=== PATIENT | female | born 1930 | race Caucasian/White ===

== ENCOUNTER 2016-09-01 21:15 | Inpatient (IN) | payer MEDICARE, BC ==
[2016-09-01] MEDS ORDERED: Sodium Chloride 0.9% 10 ML Syringe FLUSH PRN (21:30)
[2016-09-01] MEDS ORDERED: Sodium Chloride 0.9% 2.5 ML Syringe FLUSH PRN (21:30)
--- NOTE | 2016-09-01 21:47 | EDM.PDOC ---
ED HISTORY OF PRESENT ILLNESS - General Chief Complaint: Respiratory Problem Stated Complaint: COUGH Time Seen by Provider: 09/01/16 21:24 - History of Present Illness INITIAL COMMENTS - FREE TEXT/NARRATIVE: HISTORY AND PHYSICAL: History of present illness: Patient is an 85-year-old white female with past medical history significant pulmonary fibrosis who presents with concern of cough shortness of breath she has chronic dyspnea and is at the assisted she uses home O2 at 3 L per nasal cannula she does have a scheduled appointment with her doctor tomorrow but felt she couldn't wait no fever chills nausea vomiting chest pain abdominal pain or any other concern. Review of systems: As per history of present illness and below otherwise all systems reviewed and negative. Past medical history: As per history of present illness and as reviewed below otherwise noncontributory. Surgical history: As per history of present illness and as reviewed below otherwise noncontributory. Social history: No reported history of drug or alcohol abuse. Family history: As per history of present illness and as reviewed below otherwise noncontributory. Physical exam: HEENT: Atraumatic, normocephalic, pupils reactive, negative for conjunctival pallor or scleral icterus, mucous membranes moist, throat clear, neck supple, nontender, trachea midline. Lungs: Coarse bilaterally slightly diminished bibasilar crackles noted, breath sounds equal bilaterally, chest nontender. Heart: S1S2, regular, negative for clicks, rubs, or JVD. Abdomen: Soft, nondistended, nontender. Negative for masses or hepatosplenomegaly. Negative for costovertebral tenderness. Pelvis: Stable nontender. Genitourinary: Deferred. Rectal: Deferred. Extremities: Atraumatic, negative for cords or calf pain. Neurovascular unremarkable. Neuro: Awake, alert, oriented. Cranial nerves II through XII unremarkable. Cerebellum unremarkable. Motor and sensory unremarkable throughout. Exam nonfocal. Diagnostics: CBC CMP EKG chest x-ray troponin influenza screen Therapeutics: IV O2 monitor Impression: #1 pulmonary fibrosis #2 dyspnea Definitive disposition and diagnosis as appropriate pending reevaluation and review of above. - Related Data Allergies/ADRs: Allergies Allergy/AdvReac Type Severity Reaction Status Date / Time amoxicillin Allergy Cannot Verified 01/08/16 19:51 Remember cephalexin monohydrate Allergy Anaphylactic Verified 01/08/16 19:51 [From Keflex] Shock Penicillins Allergy Cannot Verified 01/08/16 19:51 Remember Home Meds: Home Meds Ferrous Sulfate 325 mg PO BID 10/19/14 [History] Metoprolol Tartrate 25 mg PO BID 10/19/14 [History] atorvaSTATin [Lipitor] 10 mg PO BEDTIME 10/19/14 [History] Clopidogrel [Plavix] 75 mg PO DAILY 02/25/15 [History] PARoxetine [Paxil] 20 mg PO DAILY 02/25/15 [History] Furosemide [Lasix] 20 mg PO DAILY #14 tablet 05/06/15 [Rx] Acetaminophen [Tylenol] 650 mg PO Q4HR PRN 05/25/15 [History] Calcium Citrate/Vitamin D3 [Calcium Citrate + D] 1 tab PO BIDMEALS 05/25/15 [ History] Multivitamin [Multivitamins] 1 cap PO DAILY 05/25/15 [History] Aspirin 81 mg PO DAILY 01/08/16 [History] Budesonide [Pulmicort Flexhaler] 2 puff INH DAILY 01/08/16 [History] Diazepam [Valium] 2 mg PO BID 01/08/16 [History] Levalbuterol HCl [Xopenex] 1.25 mg NEB Q4H PRN 01/08/16 [History] Mirtazapine [Remeron] 30 mg PO BEDTIME 01/08/16 [History] Polymyxin B Sulf/Trimethoprim [Polytrim Eye Drops] 1 drop OP DAILY 01/08/16 [ History] Psyllium Husk/Laxative No.1 [Colox] 100 mg PO DAILY 01/08/16 [History] L Acidophil/B Lactis/B Longum [Florajen3] 460 mg PO DAILY 01/09/16 [History] Cyclobenzaprine [Flexeril] 5 mg PO BEDTIME #10 tablet 01/16/16 [Rx] Cyclobenzaprine [Flexeril] 5 mg PO BID PRN #10 tablet 01/16/16 [Rx] Loperamide HCl [Imodium A-D] 2 mg PO ASDIRECTED PRN 05/08/16 [History] Mineral Oil/Petrolatum,White [Refresh P.M.] 3.5 gm OP BEDTIME 05/09/16 [History] Melatonin 5 mg PO BEDTIME 09/02/16 [History] Past Medical History HEENT History: Reports: Impaired vision Cardiovascular History: Reports: Arrhythmia, CAD, Heart Failure, Hypertension, MS, Prior cardiac arrest, Other (see below) Other Cardiovascular History: hypoxemia, tachycardia unspecified, STEMI Respiratory History: Reports: COPD, Pneumonia, recurrent, Pulmonary fibrosis, SOB, Other (see below) Other Respiratory History: interstitial pulmonary diseas, 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 Gastrointestinal History: Reports: None Other Gastrointestinal History: hernia Genitourinary History: Reports: Chronic renal insuffiency, UTI, recurrent, Other (see below) Other Genitourinary History: with history of bladder cancer-malignant neoplasm, stage 3 chronic kidney disease INPATIENT AUDITOR History: Reports: None Musculoskeletal History: Reports: Back pain, chronic, Osteoarthritis, Other ( see below) Other Musculoskeletal History: generalized muscle weakness, rheumatoid arthritis , dorsalgia, difficluty walking and lack of coordination Neurological History: Reports: TIA, Other (see below) Other Neuro History: altered mental staus, 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 Psychiatric History: Reports: Anxiety, Depression Endocrine/Metabolic History: Reports: None, Other (see below) Other Endocrine/Metabolic History: hyperlipidemia, hyperkalemia Hematologic History: Reports: None Immunologic History: Reports: None Oncologic (Cancer) History: Reports: Other (see below) Other Oncologic History: history of malignant neoplasm of bladder Dermatologic History: Reports: None - Infectious Disease History Infectious Disease History: Reports: Chicken pox, Measles, Mumps - Past Surgical History Head Surgeries/Procedures: Reports: None Cardiovascular Surgical History: Reports: Other (see below) Other Cardiovascular Surgeries/Procedures: coronary angioplastyimplant and graft GI Surgical History: Reports: Other (see below) Other GI Surgeries/Procedures: bowle resection Female Surgical History: Reports: Ureteral stent, Other (see below) Other Female Surgeries/Procedures: urostomy Endocrine Surgical History: Reports: None Neurological Surgical History: Reports: None Social & Family History - Family History Family Medical History: Noncontributory HEENT: Reports: Hearing impairment Cardiac: Reports: Heart failure, High cholesterol, Hypertension OBGYN: Reports: Musculoskeletal: Reports: Arthritis, Osteoarthritis, Osteoporosis - Tobacco Use Smoking Status *Q: Never Smoker Second Hand Smoke Exposure: No - Caffeine Use Caffeine Use: Reports: Coffee - Alcohol Use Days Per Week of Alcohol Use: 0 - Recreational Drug Use Recreational Drug Use: No Drug Use in Last 12 Months: No ED ROS GENERAL - Review of Systems Review Of Systems: ROS reveals no pertinent complaints other than HPI. ED EXAM, GENERAL - Physical Exam Exam: See Below (See dictation) Course - Vital Signs Last Recorded V/S: Last Vital Signs Temp 37.3 C 09/01/16 23:00 Pulse 102 H 09/01/16 23:00 Resp 24 H 09/01/16 23:00 BP 131/91 H 09/01/16 23:00 Pulse Ox 96 09/01/16 23:00 - Orders/Labs/Meds Orders: Active Orders 24 hr Category Date Time Status EKG Documentation Completion [RC] STAT Care 09/01/16 21:30 Active Chest 2V [CR] Stat Exams 09/01/16 21:31 Taken CBC WITH AUTO DIFF [HEME] Stat Lab 09/01/16 21:30 Ordered Levofloxacin/Dextrose 5%-Water [Levaquin in D5W 750 MG/ Med 09/02/16 00:04 Active 150 ML] 750 mg Premix Bag 1 bag IV ONETIME Sodium Chloride 0.9% [Saline Flush] Med 09/01/16 21:30 Active 10 ml FLUSH ASDIRECTED PRN Sodium Chloride 0.9% [Saline Flush] Med 09/01/16 21:30 Active 2.5 ml FLUSH ASDIRECTED PRN Saline Lock Insert [OM.PC] Stat Oth 09/01/16 21:31 Ordered Medication Orders Levofloxacin/Dextrose 750 mg/ (Premix) 150 mls @ 100 mls/hr IV ONETIME ONE Stop: 09/02/16 01:33 Sodium Chloride (Saline Flush) 10 ml FLUSH ASDIRECTED PRN PRN Reason: Keep Vein Open Sodium Chloride (Saline Flush) 2.5 ml FLUSH ASDIRECTED PRN PRN Reason: Keep Vein Open Labs: Laboratory Tests 09/01/16 09/01/16 09/01/16 Range/Units 22:00 22:00 22:00 Sodium 137 (136-146) mmol/L Potassium 3.9 (3.5-5.1) mmol/L Chloride 102 (98-110) mmol/L Carbon Dioxide 23 (21-31) mmol/L BUN 42 H (6.0-23.0) mg/dL Creatinine 1.5 (0.6-1.5) mg/dL Est Cr Clr Drug Dosing 21.86 mL/min Estimated GFR (MDRD) 32.8 ml/min Glucose 109 (60-110) mg/dL Calcium 9.1 (8.8-10.8) mg/dL Total Bilirubin 0.3 (0.1-1.5) mg/dL AST 20 (5-40) IU/L ALT 11 (8-54) IU/L Alkaline Phosphatase 90 (40-150) Troponin I < 0.10 (0.0-0.29) NG/ML B-Natriuretic Peptide 838 H (<100) PG/ML Total Protein 7.7 (6.0-8.0) g/dL Albumin 3.5 (3.4-4.8) g/dL Globulin 4.2 H (2.0-3.5) g/dL Albumin/Globulin Ratio 0.8 L (1.3-2.8) Meds: Medications Generic Name Dose Route Start Last Admin Trade Name Maggy PRN Reason Stop Dose Admin Levofloxacin/Dextrose 750 mg/ 150 mls @ 100 mls/hr 09/02/16 00:04 Premix IV 09/02/16 01:33 ONETIME ONE Sodium Chloride 10 ml 09/01/16 21:30 Saline Flush FLUSH ASDIRECTED PRN Keep Vein Open Sodium Chloride 2.5 ml 09/01/16 21:30 Saline Flush FLUSH ASDIRECTED PRN Keep Vein Open Discontinued Medications Generic Name Dose Route Start Last Admin Trade Name Maggy PRN Reason Stop Dose Admin Albuterol/Ipratropium Confirm 09/01/16 22:48 Duoneb 3.0-0.5 Mg/3 Ml Administered 09/01/16 22:49 Dose 3 ml .ROUTE .STK-MED ONE Methylprednisolone Sodium Succinate 125 mg 09/02/16 00:05 Solu-Medrol IVPUSH 09/02/16 00:06 ONETIME ONE Departure - Departure Time of Disposition: 00:09 Disposition: Admitted As Inpatient 64 Condition: good Clinical Impression: Pulmonary fibrosis, Dyspnea, Pneumonia Forms: ED Department Discharge - My Orders Last 24 Hours: My Active Orders 09/01/16 21:30 EKG Documentation Completion [RC] STAT CBC WITH AUTO DIFF [HEME] Stat Sodium Chloride 0.9% [Saline Flush] 10 ml FLUSH ASDIRECTED PRN Sodium Chloride 0.9% [Saline Flush] 2.5 ml FLUSH ASDIRECTED PRN 09/01/16 21:31 Chest 2V [CR] Stat Saline Lock Insert [OM.PC] Stat 09/02/16 00:04 Levofloxacin/Dextrose 5%-Water [Levaquin in D5W 750 MG/150 ML] 750 mg Premix Bag 1 bag IV ONETIME - Assessment/Plan Last 24 Hours: My Active Orders 09/01/16 21:30 EKG Documentation Completion [RC] STAT CBC WITH AUTO DIFF [HEME] Stat Sodium Chloride 0.9% [Saline Flush] 10 ml FLUSH ASDIRECTED PRN Sodium Chloride 0.9% [Saline Flush] 2.5 ml FLUSH ASDIRECTED PRN 09/01/16 21:31 Chest 2V [CR] Stat Saline Lock Insert [OM.PC] Stat 09/02/16 00:04 Levofloxacin/Dextrose 5%-Water [Levaquin in D5W 750 MG/150 ML] 750 mg Premix Bag 1 bag IV ONETIME
[2016-09-01] MEDS ORDERED: Albuterol/Ipratropium 3.0-0.5 MG/3 ML Neb Soln ONE (22:48)
[2016-09-02] MEDS ORDERED: Levofloxacin/Dextrose 5%-Water 750 MG in Premix Bag 1 BAG IV ONE (00:04)
[2016-09-02] MEDS ORDERED: methylPREDNISolone Sodium Succinate 125 MG/2 ML SDV IVPUSH ONE (00:05)
[2016-09-02] MEDS ORDERED: Acetaminophen 325 MG Tab PO ONE (00:30)
[2016-09-02] MEDS ORDERED: Azithromycin 500 MG in Sodium Chloride 0.9% 250 ML IV SCH (02:00)
[2016-09-02] MEDS: Albuterol/Ipratropium 3.0-0.5 MG/3 ML Neb Soln NEB SCH ×6 (02:09→21:37)
[2016-09-02] MEDS ORDERED: Meropenem 500 MG in Sodium Chloride 0.9% 100 ML IV SCH (03:00)
[2016-09-02] MEDS ORDERED: Meropenem 1 GM in Sodium Chloride 0.9% 100 ML IV SCH (03:00)
--- NOTE | 2016-09-02 08:30 | CR ---
EXAMINATION: Two-view chest (PA and Lateral views). HISTORY: Shortness of breath. FINDINGS: There is a stable widened appearance of the mediastinum with rightward deviation of the trachea. Not able chronic interstitial prominence within the right perihilar distribution in the bases bilaterall y. No definite pleural effusion. No increased or focal infiltrate. Osseous structures appear osteopenic. IMPRESSION: 1. Increased interstitial prominence likely representing interstitial lung disease. Grossly unchange d.
[2016-09-02] MEDS: methylPREDNISolone Sodium Succinate 125 MG/2 ML SDV IVPUSH SCH ×2 (09:33→15:25)
--- NOTE | 2016-09-02 10:55 | PCM.HP ---
H&P History of Present Illness - General Date of Service: 09/02/16 Admit Problem/Dx: Dyspnea Source of Information: Patient History Limitations: Reports: No limitations - History of Present Illness Initial Comments - Free Text/Narative: 85 yo female [facility] [place] resident admitted 09/01/16 for dyspnea with pmh of significant pulmonary fibrosis (home O2 3L), COPD, CAD, [place] with stents on plavix , CKD, hypertension and hyperlipidemia Patient initially presented to ED from [place] secondary to cough and worsening shortness of breath. She has chronic dyspnea and is on home O2 at 3 L per nasal cannula. Patient did have a scheduled appointment with her PCP on but felt she couldn't wait. Patient reported no sputum prodcution with cough , as well as no fever, chills, nausea, vomiting, chest pain, palpitations, or abdominal pain. She did receive the flu vaccination this year. In ED, CBC, CMP, and Troponin were unremarkable. BNP was elevated to 838 however on previous admissions BNP near 700-800. Influenza A and B were negative. CXR showed increased interstitial prminence likely representing interstitial lung diseas but grossly unchanged from previous studies. She was given tylenol, Solumedrol in the ED. Patient is allergic to Levaquin as well as amoxiciilin, azithromycing and cephalexin. Patient was admitted for dyspnea most likely secondary to COPD exacerbation and started on emperic antibiotics for HCAP from [facility]. - Related Data Allergies/Adverse Reactions: Allergies Allergy/AdvReac Type Severity Reaction Status Date / Time amoxicillin Allergy Cannot Verified 01/08/16 19:51 Remember azithromycin [From Zithromax] Allergy Cannot Verified 09/02/16 02:36 Remember cephalexin monohydrate Allergy Anaphylactic Verified 01/08/16 19:51 [From Keflex] Shock codeine Allergy Cannot Verified 09/02/16 02:33 Remember gentamicin Allergy Cannot Verified 09/02/16 02:35 Remember Iodine and Iodide Containing Allergy Cannot Verified 09/02/16 02:41 Produc Remember levofloxacin [From Levaquin] Allergy Redness Verified 09/02/16 02:45 Penicillins Allergy Cannot Verified 01/08/16 19:51 Remember Home Medications: Home Meds Ferrous Sulfate 325 mg PO BID 10/19/14 [History] Metoprolol Tartrate 25 mg PO BID 10/19/14 [History] atorvaSTATin [Lipitor] 10 mg PO BEDTIME 10/19/14 [History] Clopidogrel [Plavix] 75 mg PO DAILY 02/25/15 [History] PARoxetine [Paxil] 20 mg PO DAILY 02/25/15 [History] Acetaminophen [Tylenol] 650 mg PO Q4HR PRN MDD 3000 mg 05/25/15 [History] Calcium Citrate/Vitamin D3 [Calcium Citrate + D] 1 tab PO BIDMEALS 05/25/15 [ History] Multivitamin [Multivitamins] 1 cap PO DAILY 05/25/15 [History] Aspirin 81 mg PO DAILY 01/08/16 [History] Budesonide [Pulmicort Flexhaler] 2 puff INH DAILY 01/08/16 [History] Diazepam [Valium] 2 mg PO BID PRN 01/08/16 [History] Levalbuterol HCl [Xopenex] 1.25 mg NEB Q4H PRN 01/08/16 [History] Mirtazapine [Remeron] 30 mg PO BEDTIME 01/08/16 [History] Polymyxin B Sulf/Trimethoprim [Polytrim Eye Drops] 1 drop EYEBOTH DAILY [History] L Acidophil/B Lactis/B Longum [Florajen3] 460 mg PO DAILY 01/09/16 [History] Cyclobenzaprine [Flexeril] 5 mg PO BEDTIME #10 tablet 01/16/16 [Rx] Cyclobenzaprine [Flexeril] 5 mg PO BID PRN #10 tablet 01/16/16 [Rx] Loperamide HCl [Imodium A-D] 4 mg PO ONETIME PRN 05/08/16 [History] Mineral Oil/Petrolatum,White [Refresh P.M.] 1 applic EYEBOTH BEDTIME 05/09/16 [ History] Docusate Sodium [Colace] 100 mg PO DAILY 09/02/16 [History] Furosemide [Lasix] 20 mg PO DAILY 09/02/16 [History] Loperamide HCl [Imodium A-D] 2 mg PO QID PRN MDD 8 mg 09/02/16 [History] Melatonin 5 mg PO BEDTIME 09/02/16 [History] Past Medical History HEENT History: Reports: Impaired vision, Other (see below) Other HEENT History: unspecified visual loss Cardiovascular History: Reports: Arrhythmia, CAD, Heart Failure, Hypertension, [place], Prior cardiac arrest, Other (see below) Other Cardiovascular History: hypoxemia, tachycardia unspecified, STEMI Respiratory History: Reports: COPD, Pneumonia, recurrent, Pulmonary fibrosis, SOB, Other (see below) Other Respiratory History: interstitial pulmonary diseas, 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 Gastrointestinal History: Reports: None Other Gastrointestinal History: hernia Genitourinary History: Reports: Chronic renal insuffiency, UTI, recurrent, Other (see below) Other Genitourinary History: with history of bladder cancer-malignant neoplasm, stage 3 chronic kidney disease [employer] History: Reports: None Musculoskeletal History: Reports: Back pain, chronic, Osteoarthritis, Other ( see below) Other Musculoskeletal History: generalized muscle weakness, rheumatoid arthritis , dorsalgia, difficluty walking and lack of coordination Neurological History: Reports: TIA, Other (see below) Other Neuro History: altered mental staus, 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 Psychiatric History: Reports: Anxiety, Depression Endocrine/Metabolic History: Reports: None, Other (see below) Other Endocrine/Metabolic History: hyperlipidemia, hyperkalemia Hematologic History: Reports: None Immunologic History: Reports: None Oncologic (Cancer) History: Reports: Other (see below) Other Oncologic History: history of malignant neoplasm of bladder Dermatologic History: Reports: None - Infectious Disease History Infectious Disease History: Reports: Chicken pox, Measles, MRSA, Mumps, Other ( see below) Other Infectious Disease History: 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 per [place] - Past Surgical History Head Surgeries/Procedures: Reports: None Cardiovascular Surgical History: Reports: Other (see below) Other Cardiovascular Surgeries/Procedures: coronary angioplastyimplant and graft GI Surgical History: Reports: Other (see below) Other GI Surgeries/Procedures: bowle resection Female Surgical History: Reports: Ureteral stent, Other (see below) Other Female Surgeries/Procedures: urostomy Endocrine Surgical History: Reports: None Neurological Surgical History: Reports: None Social & Family History - Family History Family Medical History: Noncontributory HEENT: Reports: Hearing impairment Cardiac: Reports: Heart failure, High cholesterol, Hypertension OBGYN: Reports: Musculoskeletal: Reports: Arthritis, Osteoarthritis, Osteoporosis - Tobacco Use Smoking Status *Q: Never Smoker Second Hand Smoke Exposure: No - Caffeine Use Caffeine Use: Reports: Coffee - Alcohol Use Days Per Week of Alcohol Use: 0 - Recreational Drug Use Recreational Drug Use: No Drug Use in Last 12 Months: No H&P Review of Systems - Review of Systems: Review Of Systems: See Below General: Reports: weakness, fatigue. Denies: fever, chills, malaise, diaphoresis HEENT: Denies: headaches, sore throat Pulmonary: Reports: Shortness of Breath, Wheezing, Cough. Denies: Sputum Cardiovascular: Denies: chest pain, palpitations, edema Gastrointestinal: Denies: Abdominal pain, Black stool, Diarrhea, Difficulty swallowing, Nausea, Vomiting Genitourinary: Denies: dysuria, hematuria Musculoskeletal: Denies: neck pain, leg pain Skin: Denies: cyanosis Psychiatric: Denies: confusion Neurological: Denies: Confusion Exam - Exam Exam: See Below - Vital Signs Vital Signs: Last Vital Signs Temp 36.8 C 09/02/16 08:00 Pulse 89 09/02/16 08:00 Resp 18 09/02/16 08:00 BP 107/63 09/02/16 08:00 Pulse Ox 97 09/02/16 08:00 Weight: 56.3 kg - Exam Quality Assessment: supplemental oxygen, DVT prophylaxis General: alert, oriented, cooperative HEENT: PERRLA, Hearing intact, Mucosa moist & pink, Nares patent, Normal nasal septum, Posterior pharynx clear, Conjunctiva clear, EOMI, EACs clear, TMs clear Neck: supple, trachea midline, 2 Lungs: Clear to auscultation, Normal respiratory effort Cardiovascular: regular rate, regular rhythm Abdomen: normal bowel sounds, soft. No: guarding, rigidity, rebound, tenderness Back Exam: normal inspection, full range of motion, NT Extremities: normal inspection, normal pulses. No: calf tenderness, edema Peripheral Pulses: 2+: radial (L), radial (R), posterior tibial (L), posterior tibial (R), dorsalis pedis (L), dorsalis pedis (R) Skin: warm, dry, intact Neurological: cranial nerves intact, reflexes equal bilateral Neuro Extensive - Mental Status: alert, oriented x3, normal mood/affect, normal cognition Neuro Extensive - Motor, Sensory, Reflexes: CN II-XII intact Psychiatric: alert, normal affect, normal mood - Patient Data Lab Results last 24 hrs: Laboratory Results - last 24 hr 09/02/16 09/02/16 Range/Units 05:11 05:11 WBC 9.63 (4.0-11.0) K/uL RBC 3.22 L (4.30-5.90) M/uL Hgb 10.2 L (12.0-16.0) g/dL Hct 32.9 L (36.0-46.0) % MCV 102.2 H (80.0-98.0) fL MCH 31.7 (27.0-32.0) pg MCHC 31.0 (31.0-37.0) g/dL RDW Std Deviation 53.2 (28.0-62.0) fl RDW Coeff of Masood 15 (11.0-15.0) % Plt Count 144 L (150-400) K/uL MPV 13.00 H (7.40-12.00) fL Neut % (Auto) 91.4 H (48.0-80.0) % Lymph % (Auto) 5.2 L (16.0-40.0) % [facility] % (Auto) 3.1 (0.0-15.0) % Eos % (Auto) 0.2 (0.0-7.0) % Baso % (Auto) 0.1 (0.0-1.5) % Neut # (Auto) 8.8 H (1.4-5.7) K/uL Lymph # (Auto) 0.5 L (0.6-2.4) K/uL [facility] # (Auto) 0.3 (0.0-0.8) K/uL Eos # (Auto) 0.0 (0.0-0.7) K/uL Baso # (Auto) 0.0 (0.0-0.1) K/uL Sodium 135 L (136-146) mmol/L Potassium 3.9 (3.5-5.1) mmol/L Chloride 105 (98-110) mmol/L Carbon Dioxide 17 L (21-31) mmol/L BUN 40 H (6.0-23.0) mg/dL Creatinine 1.4 (0.6-1.5) mg/dL Est Cr Clr Drug Dosing 23.93 mL/min Estimated GFR (MDRD) 35.6 ml/min Glucose 165 H (60-110) mg/dL Calcium 8.3 L (8.8-10.8) mg/dL Magnesium 1.6 (1.5-2.3) mEq/L Result Diagrams: 09/02/16 05:11 09/02/16 05:11 *Q Meaningful Use (ADM) - VTE *Q VTE Criteria *Q: - Stroke *Q Stroke Criteria *Q: - AMI *Q AMI Criteria *Q: - Problem List (1) CAD (coronary artery disease) SNOMED Code(s): 84036610 ICD Code: I25.10 - ATHSCL HEART DISEASE OF [place] CORONARY ARTERY W/O ANG PCTRS Status: Chronic Priority: Medium Current Visit: Yes Qualifiers: Coronary Disease-Associated Artery/Lesion type: unspecified vessel or lesion type [place] vs. transplanted heart: [place] heart Associated angina: angina presence unspecified Qualified Code(s): I25.10 - Atherosclerotic heart disease of [place] coronary artery without angina pectoris (2) HTN (hypertension) SNOMED Code(s): 11530184 ICD Code: I10 - ESSENTIAL (PRIMARY) HYPERTENSION Status: Chronic Priority : Medium Current Visit: Yes Qualifiers: Hypertension type: essential hypertension Qualified Code(s): I10 - Essential (primary) hypertension (3) COPD (chronic obstructive pulmonary disease) SNOMED Code(s): 06920636 ICD Code: J44.9 - CHRONIC OBSTRUCTIVE PULMONARY DISEASE, UNSPECIFIED Status : Acute Priority: High Current Visit: Yes Qualifiers: COPD type: COPD with acute exacerbation Qualified Code(s): J44.1 - Chronic obstructive pulmonary disease with (acute) exacerbation (4) Dyspnea SNOMED Code(s): 531011520 ICD Code: R06.00 - DYSPNEA, UNSPECIFIED Status: Acute Priority: High Current Visit: Yes Qualifiers: Dyspnea type: shortness of breath Qualified Code(s): R06.02 - Shortness of breath (5) Pulmonary fibrosis SNOMED Code(s): 36748651 ICD Code: J84.10 - PULMONARY FIBROSIS, UNSPECIFIED Status: Chronic Priority: High Current Visit: Yes Problem List Initiated/Reviewed/Updated: Yes Orders Last 24hrs: Active Orders 24 hr Category Date Time Status Oxygen Therapy [RC] ASDIRECTED Care 09/02/16 01:54 Active RT Aerosol Therapy [RC] ASDIRECTED Care 09/02/16 01:51 Active Telemetry Monitoring [Cardiac Monitoring] [RC] Q8H Care 09/02/16 01:55 Active Regular Diet [DIET] Diet 09/02/16 Breakfast Active VANCOMYCIN TROUGH [CHEM] Timed Lab 09/05/16 02:30 Ordered Acetaminophen [Tylenol Extra Strength] Med 09/02/16 01:51 Active 500 mg PO Q4H PRN Albuterol/Ipratropium [DuoNeb 3.0-0.5 MG/3 ML] Med 09/02/16 02:00 Active 3 ml NEB Q4HRRT Meropenem 500 mg Med 09/02/16 16:00 Active Sodium Chloride 0.9% [Normal Saline] 100 ml IV Q12H Vancomycin 0.75 gm Med 09/03/16 03:00 Active Sodium Chloride 0.9% [Normal Saline] 250 ml IV Q24H Vancomycin Pharmacy to Dose [Pharmacy to Dose - Med 09/02/16 02:00 Active Vancomycin] 1 dose .XX ASDIRECTED methylPREDNISolone Sod Succ [Solu-MEDROL] Med 09/02/16 08:00 Active 125 mg IVPUSH Q8H Medication Orders Acetaminophen (Tylenol Extra Strength) 500 mg PO Q4H PRN PRN Reason: Pain/Fever Albuterol/Ipratropium (Duoneb 3.0-0.5 Mg/3 Ml) 3 ml NEB Q4HRRT [facility] Last Admin: 09/02/16 10:06 Dose: 3 ml Admin: 09/02/16 06:08 Dose: 3 ml Admin: 09/02/16 02:09 Dose: 3 ml Vancomycin HCl 0.75 gm/ Sodium (Chloride) 250 mls @ 166.667 mls/hr IV Q24H [facility] Meropenem 500 mg/ Sodium (Chloride) 100 mls @ 100 mls/hr IV Q12H [facility] Methylprednisolone Sodium Succinate (Solu-Medrol) 125 mg IVPUSH Q8H [facility] Last Admin: 09/02/16 09:33 Dose: 125 mg Sodium Chloride (Saline Flush) 10 ml FLUSH ASDIRECTED PRN PRN Reason: Keep Vein Open Sodium Chloride (Saline Flush) 2.5 ml FLUSH ASDIRECTED PRN PRN Reason: Keep Vein Open Vancomycin HCl (Pharmacy To Dose - Vancomycin) 1 dose .XX ASDIRECTED [facility] Assessment/Plan Comment:: 85 yo female [facility] [place] resident admitted 09/01/16 for dyspnea with pmh of significant pulmonary fibrosis (home O2 3L), COPD, CAD, [place] with stents on plavix , CKD, hypertension and hyperlipidemia Dyspnea: Doing better this morning after overnight solumedrol and abx. She did have a fever overnight of 38.3. No evidence of pneumonia on initial CXR. Still wheezing this am will cont. Solumedrol and duonebs. We will get UA, UC. Cont. Meropenem and Vanc Day 2 for possible HCAP. COPD: Most likely mild exacerbation will cont. duo-nebs and Solumedrol and will monitor closely. Currently sating 96% on 1.5 L/nc. Home O2 is 3L/nc CAD/IL: Stable will restart home meds. CKD: Stable at this time will monitor closely and cont. home meds. Htn/hyperlipidemia: Stable will cont. home meds. VTE: Heparin and SCD Dispo: 2-3 days.
[2016-09-02] MEDS ORDERED: Cyclobenzaprine 5 MG Tab PO PRN (11:44)
[2016-09-02] MEDS ORDERED: Loperamide 2 MG Cap PO PRN (11:44)
[2016-09-02] MEDS ORDERED: Levalbuterol HCl 1.25 MG/0.5 ML Neb NEB PRN (11:44)
[2016-09-02] MEDS: Aspirin 81 MG Tab.Chew PO SCH (12:34)
[2016-09-02] MEDS: Docusate Sodium 100 MG Cap PO SCH (12:34)
[2016-09-02] MEDS: Ferrous Sulfate 325 MG Tab PO SCH ×2 (12:35→21:54)
[2016-09-02] MEDS: Clopidogrel 75 MG Tab PO SCH (12:36)
[2016-09-02] MEDS: Furosemide 20 MG Tab PO SCH (12:36)
[2016-09-02] MEDS: PARoxetine 20 MG Tab PO SCH (12:37)
[2016-09-02] MEDS: Polymyxin B/Trimethoprim 10 ML Bottle EYEBOTH SCH (12:37)
[2016-09-02] MEDS: Metoprolol Tartrate 25 MG Tab PO SCH ×2 (12:37→21:54)
[2016-09-02] MEDS: Meropenem 500 MG in Sodium Chloride 0.9% 100 ML IV SCH (15:25)
[2016-09-02] MEDS: Calcium Citrate/Vitamin D3 Tablet PO SCH (17:53)
[2016-09-02] MEDS: Mirtazapine 15 MG Tab PO SCH (21:54)
[2016-09-02] MEDS: Heparin Sodium 5,000 Units/ML Vial SUBCUT SCH (21:54)
[2016-09-02] MEDS: atorvaSTATin 10 MG Tab PO SCH (21:54)
[2016-09-02] MEDS: Cyclobenzaprine 5 MG Tab PO SCH (21:54)
[2016-09-03] MEDS: methylPREDNISolone Sodium Succinate 125 MG/2 ML SDV IVPUSH SCH ×4 (00:24→23:27)
[2016-09-03] MEDS: Acetaminophen 500 MG Tab PO PRN ×2 (00:59→20:56)
[2016-09-03] MEDS: Diazepam 2 MG Tab PO PRN ×3 (01:00→22:30)
[2016-09-03] MEDS: Albuterol/Ipratropium 3.0-0.5 MG/3 ML Neb Soln NEB SCH ×6 (01:01→21:17)
[2016-09-03] MEDS: Meropenem 500 MG in Sodium Chloride 0.9% 100 ML IV SCH ×2 (03:43→16:08)
[2016-09-03] MEDS: Ferrous Sulfate 325 MG Tab PO SCH ×2 (09:40→20:46)
[2016-09-03] MEDS: Aspirin 81 MG Tab.Chew PO SCH (09:40)
[2016-09-03] MEDS: Docusate Sodium 100 MG Cap PO SCH (09:40)
[2016-09-03] MEDS: Heparin Sodium 5,000 Units/ML Vial SUBCUT SCH ×2 (09:40→20:48)
[2016-09-03] MEDS: Metoprolol Tartrate 25 MG Tab PO SCH ×2 (09:41→20:46)
[2016-09-03] MEDS: Furosemide 20 MG Tab PO SCH (09:41)
[2016-09-03] MEDS: PARoxetine 20 MG Tab PO SCH (09:41)
[2016-09-03] MEDS: Polymyxin B/Trimethoprim 10 ML Bottle EYEBOTH SCH (09:42)
[2016-09-03] MEDS: Clopidogrel 75 MG Tab PO SCH (09:42)
[2016-09-03] MEDS: Calcium Carbonate/Vitamin D3 1500 MG-400 Units Tab PO SCH ×2 (11:30→16:09)
[2016-09-03] MEDS: Calcium Citrate/Vitamin D3 Tablet PO SCH (12:51)
--- NOTE | 2016-09-03 13:17 | PCM.PN ---
<Geovanny Keane - Last Filed: 09/03/16 13:11> - General Info Date of Service: 09/03/16 Admission Dx/Problem (Free Text): Dyspnea Functional Status: Reports: pain controlled, tolerating diet - Review of Systems General: Reports: Fatigue. Denies: Fever, Weakness, Malaise HEENT: Denies: dysphasia, headaches Pulmonary: Reports: shortness of breath, cough. Denies: pleuritic chest pain, sputum, hemoptysis Cardiovascular: Denies: Chest Pain, Palpitations, Edema Gastrointestinal: Reports: Constipation. Denies: Abdominal pain, Diarrhea, Nausea, Vomiting Genitourinary: Denies: dysuria, hematuria Musculoskeletal: Denies: neck pain, leg pain Skin: Denies: cyanosis Neurological: Denies: Confusion, Dizziness Psychiatric: Denies: confusion - Patient Data Vitals - most recent: Last Vital Signs Temp 36.3 C 09/03/16 08:00 Pulse 78 09/03/16 09:41 Resp 24 H 09/03/16 08:00 BP 138/78 09/03/16 09:41 Pulse Ox 93 L 09/03/16 08:00 Weight - most recent: 56.3 kg I&O - last 24 hours: Intake & Output 09/02/16 09/03/16 09/03/16 22:59 06:59 14:59 Intake Total 1140 850 Output Total 1120 800 Balance 20 50 Lab Results last 24 hrs: Laboratory Results - last 24 hr 09/03/16 09/03/16 Range/Units 05:25 05:25 WBC 13.86 H (4.0-11.0) K/uL RBC 3.14 L (4.30-5.90) M/uL Hgb 9.9 L (12.0-16.0) g/dL Hct 31.1 L (36.0-46.0) % MCV 99.0 H (80.0-98.0) fL MCH 31.5 (27.0-32.0) pg MCHC 31.8 (31.0-37.0) g/dL RDW Std Deviation 54.8 (28.0-62.0) fl RDW Coeff of Masood 15 (11.0-15.0) % Plt Count 162 (150-400) K/uL MPV 13.10 H (7.40-12.00) fL Add Manual Diff YES Neutrophils % (Manual) 67 (48.0-80.0) % Band Neutrophils % 27 % Lymphocytes % (Manual) 3 L (16.0-40.0) % Monocytes % (Manual) 3 (0.0-15.0) % Nucleated RBC % 0.0 /100WBC Absolute Seg Neuts 9.3 Band Neutrophils # 3.7 Lymphocytes # (Manual) 0.4 Monocytes # (Manual) 0.4 Nucleated RBCs # 0 K/uL Sodium 137 (136-146) mmol/L Potassium 4.2 (3.5-5.1) mmol/L Chloride 107 (98-110) mmol/L Carbon Dioxide 19 L (21-31) mmol/L BUN 46 H (6.0-23.0) mg/dL Creatinine 1.3 (0.6-1.5) mg/dL Est Cr Clr Drug Dosing 25.65 mL/min Estimated GFR (MDRD) 38.7 ml/min Glucose 140 H (60-110) mg/dL Calcium 8.3 L (8.8-10.8) mg/dL Total Bilirubin 0.2 (0.1-1.5) mg/dL AST 17 (5-40) IU/L ALT 10 (8-54) IU/L Alkaline Phosphatase 73 (40-150) Total Protein 6.2 (6.0-8.0) g/dL Albumin 3.1 L (3.4-4.8) g/dL Globulin 3.1 (2.0-3.5) g/dL Albumin/Globulin Ratio 1.0 L (1.3-2.8) Med Orders - Current: Current Medications Acetaminophen (Tylenol Extra Strength) 500 mg PO Q4H PRN PRN Reason: Pain/Fever Last Admin: 09/03/16 00:59 Dose: 500 mg Albuterol/Ipratropium (Duoneb 3.0-0.5 Mg/3 Ml) 3 ml NEB Q4HRRT [facility] Last Admin: 09/03/16 09:58 Dose: 3 ml Aspirin (Aspirin) 81 mg PO DAILY [facility] Last Admin: 09/03/16 09:40 Dose: 81 mg Atorvastatin Calcium (Lipitor) 10 mg PO BEDTIME [facility] Last Admin: 09/02/16 21:54 Dose: 10 mg Calcium Carbonate (Caltrate 600+D 1500 Mg-400 Units) 0.5 tab PO BIDMEALS [facility] Last Admin: 09/03/16 11:30 Dose: 0.5 tab Clopidogrel Bisulfate (Plavix) 75 mg PO DAILY [facility] Last Admin: 09/03/16 09:42 Dose: 75 mg Cyclobenzaprine HCl (Flexeril) 5 mg PO BEDTIME [facility] Last Admin: 09/02/16 21:54 Dose: 5 mg Cyclobenzaprine HCl (Flexeril) 5 mg PO BID PRN PRN Reason: muscle spasms/back Diazepam (Valium) 2 mg PO BID PRN PRN Reason: agitation/restlessness Last Admin: 09/03/16 10:42 Dose: 2 mg Docusate Sodium (Colace) 100 mg PO DAILY [facility] Last Admin: 09/03/16 09:40 Dose: 100 mg Ferrous Sulfate (Ferrous Sulfate) 325 mg PO BID [facility] Last Admin: 09/03/16 09:40 Dose: 325 mg Furosemide (Lasix) 20 mg PO DAILY [facility] Last Admin: 09/03/16 09:41 Dose: 20 mg Heparin Sodium (Porcine) (Heparin Sodium) 5,000 units SUBCUT Q12HR [facility] Last Admin: 09/03/16 09:40 Dose: 5,000 units Vancomycin HCl 0.75 gm/ Sodium (Chloride) 250 mls @ 166.667 mls/hr IV Q24H [facility] Last Admin: 09/03/16 02:12 Dose: 166.667 mls/hr Meropenem 500 mg/ Sodium (Chloride) 100 mls @ 100 mls/hr IV Q12H [facility] Last Admin: 09/03/16 03:43 Dose: 100 mls/hr Levalbuterol HCl (Xopenex) 1.25 mg NEB Q4H PRN PRN Reason: Cough Loperamide HCl (Imodium) 2 mg PO QID PRN PRN Reason: Diarrhea Methylprednisolone Sodium Succinate (Solu-Medrol) 125 mg IVPUSH Q8H [facility] Last Admin: 09/03/16 10:29 Dose: 125 mg Metoprolol Tartrate (Lopressor) 25 mg PO BID [facility] Last Admin: 09/03/16 09:41 Dose: 25 mg Mirtazapine (Remeron) 30 mg PO BEDTIME [facility] Last Admin: 09/02/16 21:54 Dose: 30 mg Paroxetine HCl (Paxil) 20 mg PO DAILY [facility] Last Admin: 09/03/16 09:41 Dose: 20 mg Polymyxin/Trimethoprim Sulfate (Polytrim Ophth Soln) 0 ml EYEBOTH DAILY [facility] Last Admin: 09/03/16 09:42 Dose: 1 drop Sodium Chloride (Saline Flush) 10 ml FLUSH ASDIRECTED PRN PRN Reason: Keep Vein Open Sodium Chloride (Saline Flush) 2.5 ml FLUSH ASDIRECTED PRN PRN Reason: Keep Vein Open Vancomycin HCl (Pharmacy To Dose - Vancomycin) 1 dose .XX ASDIRECTED [facility] Discontinued Medications Acetaminophen (Tylenol) 1,000 mg PO NOW ONE Stop: 09/02/16 00:31 Last Admin: 09/02/16 00:36 Dose: 1,000 mg Albuterol/Ipratropium (Duoneb 3.0-0.5 Mg/3 Ml) Confirm Administered Dose 3 ml .ROUTE .STK-MED ONE Stop: 09/01/16 22:49 Last Admin: 09/01/16 22:45 Dose: 3 ml Calcium Citrate (Calcitrate + Vit D Cap (315 Mg/250 Units)) 1 each PO BIDMEALS [facility] Last Admin: 09/03/16 12:51 Dose: Not Given Levofloxacin/Dextrose 750 mg/ (Premix) 150 mls @ 100 mls/hr IV ONETIME ONE Stop: 09/02/16 01:33 Last Admin: 09/02/16 00:17 Dose: 100 mls/hr Azithromycin 500 mg/ Sodium (Chloride) 250 mls @ 250 mls/hr IV Q24H [facility] Last Admin: 09/02/16 02:10 Dose: 250 mls/hr Vancomycin HCl 1 gm/ Sodium (Chloride) 250 mls @ 166 mls/hr IV ONETIME ONE Stop: 09/02/16 04:30 Last Admin: 09/02/16 02:44 Dose: 166 mls/hr Vancomycin HCl 0.75 gm/ Sodium (Chloride) 250 mls @ 166.667 mls/hr IV Q24H [facility] Last Admin: 09/02/16 05:05 Dose: Not Given Meropenem 1 gm/ Sodium (Chloride) 100 mls @ 200 mls/hr IV Q8H [facility] Meropenem 500 mg/ Sodium (Chloride) 100 mls @ 100 mls/hr IV Q12H [facility] Last Admin: 09/02/16 03:30 Dose: 100 mls/hr Methylprednisolone Sodium Succinate (Solu-Medrol) 125 mg IVPUSH ONETIME ONE Stop: 09/02/16 00:06 Last Admin: 09/02/16 00:14 Dose: 125 mg - Exam Quality Assessment: supplemental oxygen, DVT prophylaxis General: alert, oriented, cooperative, no acute distress HEENT: Pupils equal, Pupils reactive, EOMI, Mucous membr. moist/pink Neck: supple, trachea midline Lungs: Normal respiratory effort, Decreased breath sounds, Crackles, Wheezing Cardiovascular: Regular Rate, Regular Rhythm, Murmurs Abdomen: bowel sounds present, soft, no tenderness, no distension Extremities: no edema, no tenderness/swelling, no calf tenderness Peripheral Pulses: 2+: radial (L), radial (R), posterior tibial (L), posterior tibial (R), dorsalis pedis (L), dorsalis pedis (R) Skin: warm, dry, intact Neurological: no new focal deficit Psy/Mental Status: alert, normal affect, normal mood - Problem List & Annotations (1) CAD (coronary artery disease) SNOMED Code(s): 67858679 Code(s): I25.10 - ATHSCL HEART DISEASE OF [place] CORONARY ARTERY W/O ANG PCTRS Status: Chronic Priority: Medium Current Visit: Yes Qualifiers: Coronary Disease-Associated Artery/Lesion type: unspecified vessel or lesion type [place] vs. transplanted heart: [place] heart Associated angina: angina presence unspecified Qualified Code(s): I25.10 - Atherosclerotic heart disease of [place] coronary artery without angina pectoris (2) HTN (hypertension) SNOMED Code(s): 45943816 Code(s): I10 - ESSENTIAL (PRIMARY) HYPERTENSION Status: Chronic Priority : Medium Current Visit: Yes Qualifiers: Hypertension type: essential hypertension Qualified Code(s): I10 - Essential (primary) hypertension (3) COPD (chronic obstructive pulmonary disease) SNOMED Code(s): 25182870 Code(s): J44.9 - CHRONIC OBSTRUCTIVE PULMONARY DISEASE, UNSPECIFIED Status : Acute Priority: High Current Visit: Yes Qualifiers: COPD type: COPD with acute exacerbation Qualified Code(s): J44.1 - Chronic obstructive pulmonary disease with (acute) exacerbation (4) Dyspnea SNOMED Code(s): 353167134 Code(s): R06.00 - DYSPNEA, UNSPECIFIED Status: Acute Priority: High Current Visit: Yes Qualifiers: Dyspnea type: shortness of breath Qualified Code(s): R06.02 - Shortness of breath (5) Pulmonary fibrosis SNOMED Code(s): 22305661 Code(s): J84.10 - PULMONARY FIBROSIS, UNSPECIFIED Status: Chronic Priority: High Current Visit: Yes - Problem List Review Problem List Initiated/Reviewed/Updated: Yes - My Orders Last 24 Hours: My Active Orders 09/02/16 12:25 CULTURE URINE [RM] Routine 09/02/16 19:46 Code Status [Resuscitation Status] Routine 09/02/16 21:00 Cyclobenzaprine [Flexeril] 5 mg PO BEDTIME Heparin Sodium 5,000 units SUBCUT Q12HR Mirtazapine [Remeron] 30 mg PO BEDTIME atorvaSTATin [Lipitor] 10 mg PO BEDTIME 09/03/16 08:00 Calcium Carbonate/Vitamin D3 [Caltrate 600+D 1500 MG-400 Units] 0.5 tab PO BIDMEALS - Plan Plan:: 85 yo female [facility] resident admitted 09/01/16 for dyspnea with pmh of significant pulmonary fibrosis (home O2 3L), COPD, CAD, CA with stents on plavix , CKD, hypertension and hyperlipidemia Dyspnea: Continued improvement on solumedrol and abx will cont. today. I do not feel she has a pneumona and that her fever was most likely from UTI but with her severely compromised lung function we will cont broad spectrum until culture results are available. No fevers over night. Cont. Meropenem Vanc Day 3 for possible HCAP. UTI: Urine was positive yesterday evening for infection. Culture results pending. On Meropenem Day 3. COPD: Most likely mild exacerbation will cont. duo-nebs and Solumedrol and will monitor closely. Home O2 is 3L/nc CAD/CA: Stable will cont. home meds. CKD: Stable at this time will monitor closely and cont. home meds. Htn/hyperlipidemia: Stable will cont. home meds. VTE: Heparin and SCD Dispo: 1-2 days. May be able to be discharged this weekend. <Hayden Sawant - Last Filed: 09/03/16 16:38> - Patient Data Vitals - most recent: Last Vital Signs Temp 36.3 C 09/03/16 12:00 Pulse 92 09/03/16 12:00 Resp 20 09/03/16 12:00 BP 122/64 09/03/16 12:00 Pulse Ox 91 L 09/03/16 12:00 I&O - last 24 hours: Intake & Output 09/03/16 09/03/16 09/03/16 06:59 14:59 22:59 Intake Total 850 Output Total 800 Balance 50 Lab Results last 24 hrs: Laboratory Results - last 24 hr 09/03/16 09/03/16 Range/Units 05:25 05:25 WBC 13.86 H (4.0-11.0) K/uL RBC 3.14 L (4.30-5.90) M/uL Hgb 9.9 L (12.0-16.0) g/dL Hct 31.1 L (36.0-46.0) % MCV 99.0 H (80.0-98.0) fL MCH 31.5 (27.0-32.0) pg MCHC 31.8 (31.0-37.0) g/dL RDW Std Deviation 54.8 (28.0-62.0) fl RDW Coeff of Masood 15 (11.0-15.0) % Plt Count 162 (150-400) K/uL MPV 13.10 H (7.40-12.00) fL Add Manual Diff YES Neutrophils % (Manual) 67 (48.0-80.0) % Band Neutrophils % 27 % Lymphocytes % (Manual) 3 L (16.0-40.0) % Monocytes % (Manual) 3 (0.0-15.0) % Nucleated RBC % 0.0 /100WBC Absolute Seg Neuts 9.3 Band Neutrophils # 3.7 Lymphocytes # (Manual) 0.4 Monocytes # (Manual) 0.4 Nucleated RBCs # 0 K/uL Sodium 137 (136-146) mmol/L Potassium 4.2 (3.5-5.1) mmol/L Chloride 107 (98-110) mmol/L Carbon Dioxide 19 L (21-31) mmol/L BUN 46 H (6.0-23.0) mg/dL Creatinine 1.3 (0.6-1.5) mg/dL Est Cr Clr Drug Dosing 25.65 mL/min Estimated GFR (MDRD) 38.7 ml/min Glucose 140 H (60-110) mg/dL Calcium 8.3 L (8.8-10.8) mg/dL Total Bilirubin 0.2 (0.1-1.5) mg/dL AST 17 (5-40) IU/L ALT 10 (8-54) IU/L Alkaline Phosphatase 73 (40-150) Total Protein 6.2 (6.0-8.0) g/dL Albumin 3.1 L (3.4-4.8) g/dL Globulin 3.1 (2.0-3.5) g/dL Albumin/Globulin Ratio 1.0 L (1.3-2.8) Med Orders - Current: Current Medications Acetaminophen (Tylenol Extra Strength) 500 mg PO Q4H PRN PRN Reason: Pain/Fever Last Admin: 09/03/16 00:59 Dose: 500 mg Albuterol/Ipratropium (Duoneb 3.0-0.5 Mg/3 Ml) 3 ml NEB Q4HRRT [facility] Last Admin: 09/03/16 13:44 Dose: 3 ml Aspirin (Aspirin) 81 mg PO DAILY [facility] Last Admin: 09/03/16 09:40 Dose: 81 mg Atorvastatin Calcium (Lipitor) 10 mg PO BEDTIME [facility] Last Admin: 09/02/16 21:54 Dose: 10 mg Calcium Carbonate (Caltrate 600+D 1500 Mg-400 Units) 0.5 tab PO BIDMEALS [facility] Last Admin: 09/03/16 16:09 Dose: 0.5 tab Clopidogrel Bisulfate (Plavix) 75 mg PO DAILY [facility] Last Admin: 09/03/16 09:42 Dose: 75 mg Cyclobenzaprine HCl (Flexeril) 5 mg PO BEDTIME [facility] Last Admin: 09/02/16 21:54 Dose: 5 mg Cyclobenzaprine HCl (Flexeril) 5 mg PO BID PRN PRN Reason: muscle spasms/back Diazepam (Valium) 2 mg PO BID PRN PRN Reason: agitation/restlessness Last Admin: 09/03/16 10:42 Dose: 2 mg Docusate Sodium (Colace) 100 mg PO DAILY [facility] Last Admin: 09/03/16 09:40 Dose: 100 mg Ferrous Sulfate (Ferrous Sulfate) 325 mg PO BID [facility] Last Admin: 09/03/16 09:40 Dose: 325 mg Furosemide (Lasix) 20 mg PO DAILY [facility] Last Admin: 09/03/16 09:41 Dose: 20 mg Heparin Sodium (Porcine) (Heparin Sodium) 5,000 units SUBCUT Q12HR [facility] Last Admin: 09/03/16 09:40 Dose: 5,000 units Vancomycin HCl 0.75 gm/ Sodium (Chloride) 250 mls @ 166.667 mls/hr IV Q24H [facility] Last Admin: 09/03/16 02:12 Dose: 166.667 mls/hr Meropenem 500 mg/ Sodium (Chloride) 100 mls @ 100 mls/hr IV Q12H [facility] Last Admin: 09/03/16 16:08 Dose: 100 mls/hr Levalbuterol HCl (Xopenex) 1.25 mg NEB Q4H PRN PRN Reason: Cough Loperamide HCl (Imodium) 2 mg PO QID PRN PRN Reason: Diarrhea Methylprednisolone Sodium Succinate (Solu-Medrol) 125 mg IVPUSH Q8H [facility] Last Admin: 09/03/16 16:09 Dose: 125 mg Metoprolol Tartrate (Lopressor) 25 mg PO BID [facility] Last Admin: 09/03/16 09:41 Dose: 25 mg Mirtazapine (Remeron) 30 mg PO BEDTIME [facility] Last Admin: 09/02/16 21:54 Dose: 30 mg Paroxetine HCl (Paxil) 20 mg PO DAILY [facility] Last Admin: 09/03/16 09:41 Dose: 20 mg Polymyxin/Trimethoprim Sulfate (Polytrim Ophth Soln) 0 ml EYEBOTH DAILY [facility] Last Admin: 09/03/16 09:42 Dose: 1 drop Sodium Chloride (Saline Flush) 10 ml FLUSH ASDIRECTED PRN PRN Reason: Keep Vein Open Sodium Chloride (Saline Flush) 2.5 ml FLUSH ASDIRECTED PRN PRN Reason: Keep Vein Open Vancomycin HCl (Pharmacy To Dose - Vancomycin) 1 dose .XX ASDIRECTED [facility] Discontinued Medications Acetaminophen (Tylenol) 1,000 mg PO NOW ONE Stop: 09/02/16 00:31 Last Admin: 09/02/16 00:36 Dose: 1,000 mg Albuterol/Ipratropium (Duoneb 3.0-0.5 Mg/3 Ml) Confirm Administered Dose 3 ml .ROUTE .STK-MED ONE Stop: 09/01/16 22:49 Last Admin: 09/01/16 22:45 Dose: 3 ml Calcium Citrate (Calcitrate + Vit D Cap (315 Mg/250 Units)) 1 each PO BIDMEALS [facility] Last Admin: 09/03/16 12:51 Dose: Not Given Levofloxacin/Dextrose 750 mg/ (Premix) 150 mls @ 100 mls/hr IV ONETIME ONE Stop: 09/02/16 01:33 Last Admin: 09/02/16 00:17 Dose: 100 mls/hr Azithromycin 500 mg/ Sodium (Chloride) 250 mls @ 250 mls/hr IV Q24H [facility] Last Admin: 09/02/16 02:10 Dose: 250 mls/hr Vancomycin HCl 1 gm/ Sodium (Chloride) 250 mls @ 166 mls/hr IV ONETIME ONE Stop: 09/02/16 04:30 Last Admin: 09/02/16 02:44 Dose: 166 mls/hr Vancomycin HCl 0.75 gm/ Sodium (Chloride) 250 mls @ 166.667 mls/hr IV Q24H [facility] Last Admin: 09/02/16 05:05 Dose: Not Given Meropenem 1 gm/ Sodium (Chloride) 100 mls @ 200 mls/hr IV Q8H [facility] Meropenem 500 mg/ Sodium (Chloride) 100 mls @ 100 mls/hr IV Q12H [facility] Last Admin: 09/02/16 03:30 Dose: 100 mls/hr Methylprednisolone Sodium Succinate (Solu-Medrol) 125 mg IVPUSH ONETIME ONE Stop: 09/02/16 00:06 Last Admin: 09/02/16 00:14 Dose: 125 mg Polyethylene Glycol (Miralax) 17 gm PO ONETIME ONE Stop: 09/03/16 16:06 - Plan Plan:: I was present with he resident during the history and exam. i discussed the case with the resident and agree with the findings and plan documented in the resident's note
[2016-09-03] MEDS ORDERED: Polyethylene Glycol 3350 Powder 17 GM Packet PO ONE (16:05)
[2016-09-03] MEDS: Cyclobenzaprine 5 MG Tab PO SCH (20:45)
[2016-09-03] MEDS: Mirtazapine 15 MG Tab PO SCH (20:46)
[2016-09-03] MEDS: atorvaSTATin 10 MG Tab PO SCH (20:46)
[2016-09-03] MEDS ORDERED: Belladonna Alkaloids/Opium 16.2-30 MG Supp RECTAL ONE (21:05)
[2016-09-04] MEDS: Albuterol/Ipratropium 3.0-0.5 MG/3 ML Neb Soln NEB SCH ×6 (02:59→21:00)
[2016-09-04] MEDS: Meropenem 500 MG in Sodium Chloride 0.9% 100 ML IV SCH ×2 (04:41→15:23)
[2016-09-04] MEDS: methylPREDNISolone Sodium Succinate 125 MG/2 ML SDV IVPUSH SCH ×3 (09:17→23:54)
[2016-09-04] MEDS: Heparin Sodium 5,000 Units/ML Vial SUBCUT SCH ×2 (09:19→20:39)
[2016-09-04] MEDS: Docusate Sodium 100 MG Cap PO SCH (09:20)
[2016-09-04] MEDS: Clopidogrel 75 MG Tab PO SCH (09:20)
[2016-09-04] MEDS: Aspirin 81 MG Tab.Chew PO SCH (09:20)
[2016-09-04] MEDS: Metoprolol Tartrate 25 MG Tab PO SCH ×2 (09:21→20:44)
[2016-09-04] MEDS: Calcium Carbonate/Vitamin D3 1500 MG-400 Units Tab PO SCH ×2 (09:21→16:15)
[2016-09-04] MEDS: PARoxetine 20 MG Tab PO SCH (09:22)
[2016-09-04] MEDS: Furosemide 20 MG Tab PO SCH (09:22)
[2016-09-04] MEDS: Ferrous Sulfate 325 MG Tab PO SCH ×2 (09:22→20:38)
[2016-09-04] MEDS: Polymyxin B/Trimethoprim 10 ML Bottle EYEBOTH SCH (09:29)
[2016-09-04] MEDS: Acetaminophen 500 MG Tab PO PRN ×2 (09:42→15:33)
--- NOTE | 2016-09-04 14:59 | PCM.PN ---
- General Info Date of Service: 09/04/16 Subjective Update: more short of breath at moment, little (no) help from nebulizer treatment. Had some lower abdominal pain last night that she says she gets when she struggles to breathe, calls it bladder spasm even though she had cystectomy. Seemed helped by B&O suppository at [facility] of decreasing her pulse ox, though her readings are ok now on 5 liters Functional Status: Reports: pain controlled - Review of Systems General: Reports: No Symptoms HEENT: Reports: no symptoms Pulmonary: Reports: shortness of breath Cardiovascular: Reports: No Symptoms Gastrointestinal: Reports: No symptoms Genitourinary: Reports: no symptoms (no pain or irritation at urostomy site) Musculoskeletal: Reports: no symptoms Skin: Reports: no symptoms Neurological: Reports: No Symptoms Psychiatric: Reports: anxiety ('need something to calm me down') - Patient Data Vitals - most recent: Last Vital Signs Temp 36.9 C 09/04/16 12:00 Pulse 94 09/04/16 12:00 Resp 24 H 09/04/16 12:00 BP 115/73 09/04/16 12:00 Pulse Ox 94 L 09/04/16 12:00 Weight - most recent: 56.3 kg I&O - last 24 hours: Intake & Output 09/03/16 09/04/16 09/04/16 22:59 06:59 14:59 Intake Total 800 950 Output Total 1300 650 Balance -500 300 Akbar Results last 24 hrs: Microbiology 09/02/16 12:25 Urine Culture - Final Urine, Clean Catch MIXED MIGEL >100,000 CFU/ML Med Orders - Current: Current Medications Acetaminophen (Tylenol Extra Strength) 500 mg PO Q4H PRN PRN Reason: Pain/Fever Last Admin: 09/04/16 09:42 Dose: 500 mg Albuterol/Ipratropium (Duoneb 3.0-0.5 Mg/3 Ml) 3 ml NEB Q4HRRT [facility] Last Admin: 09/04/16 13:42 Dose: 3 ml Aspirin (Aspirin) 81 mg PO DAILY [facility] Last Admin: 09/04/16 09:20 Dose: 81 mg Atorvastatin Calcium (Lipitor) 10 mg PO BEDTIME [facility] Last Admin: 09/03/16 20:46 Dose: 10 mg Calcium Carbonate (Caltrate 600+D 1500 Mg-400 Units) 0.5 tab PO BIDMEALS [facility] Last Admin: 09/04/16 09:21 Dose: 0.5 tab Clopidogrel Bisulfate (Plavix) 75 mg PO DAILY [facility] Last Admin: 09/04/16 09:20 Dose: 75 mg Cyclobenzaprine HCl (Flexeril) 5 mg PO BEDTIME [facility] Last Admin: 09/03/16 20:45 Dose: 5 mg Cyclobenzaprine HCl (Flexeril) 5 mg PO BID PRN PRN Reason: muscle spasms/back Diazepam (Valium) 2 mg PO BID PRN PRN Reason: agitation/restlessness Last Admin: 09/03/16 22:30 Dose: 2 mg Docusate Sodium (Colace) 100 mg PO DAILY [facility] Last Admin: 09/04/16 09:20 Dose: 100 mg Ferrous Sulfate (Ferrous Sulfate) 325 mg PO BID [facility] Last Admin: 09/04/16 09:22 Dose: 325 mg Furosemide (Lasix) 20 mg PO DAILY [facility] Last Admin: 09/04/16 09:22 Dose: 20 mg Heparin Sodium (Porcine) (Heparin Sodium) 5,000 units SUBCUT Q12HR [facility] Last Admin: 09/04/16 09:19 Dose: 5,000 units Vancomycin HCl 0.75 gm/ Sodium (Chloride) 250 mls @ 166.667 mls/hr IV Q24H [facility] Last Admin: 09/04/16 02:59 Dose: 166.667 mls/hr Meropenem 500 mg/ Sodium (Chloride) 100 mls @ 100 mls/hr IV Q12H [facility] Last Admin: 09/04/16 04:41 Dose: 100 mls/hr Levalbuterol HCl (Xopenex) 1.25 mg NEB Q4H PRN PRN Reason: Cough Last Admin: 09/03/16 23:07 Dose: 1.25 mg Loperamide HCl (Imodium) 2 mg PO QID PRN PRN Reason: Diarrhea Methylprednisolone Sodium Succinate (Solu-Medrol) 125 mg IVPUSH Q8H [facility] Last Admin: 09/04/16 09:17 Dose: 125 mg Metoprolol Tartrate (Lopressor) 25 mg PO BID [facility] Last Admin: 09/04/16 09:21 Dose: 25 mg Mirtazapine (Remeron) 30 mg PO BEDTIME [facility] Last Admin: 09/03/16 20:46 Dose: 30 mg Paroxetine HCl (Paxil) 20 mg PO DAILY [facility] Last Admin: 09/04/16 09:22 Dose: 20 mg Polymyxin/Trimethoprim Sulfate (Polytrim Ophth Soln) 0 ml EYEBOTH DAILY [facility] Last Admin: 09/04/16 09:29 Dose: 1 drop Sodium Chloride (Saline Flush) 10 ml FLUSH ASDIRECTED PRN PRN Reason: Keep Vein Open Sodium Chloride (Saline Flush) 2.5 ml FLUSH ASDIRECTED PRN PRN Reason: Keep Vein Open Vancomycin HCl (Pharmacy To Dose - Vancomycin) 1 dose .XX ASDIRECTED [facility] Discontinued Medications Acetaminophen (Tylenol) 1,000 mg PO NOW ONE Stop: 09/02/16 00:31 Last Admin: 09/02/16 00:36 Dose: 1,000 mg Albuterol/Ipratropium (Duoneb 3.0-0.5 Mg/3 Ml) Confirm Administered Dose 3 ml .ROUTE .STK-MED ONE Stop: 09/01/16 22:49 Last Admin: 09/01/16 22:45 Dose: 3 ml Belladonna Alkaloids/Opium (B & O Supprettes No. 15a) 1 supp RECTAL ONETIME ONE Stop: 09/03/16 21:06 Last Admin: 09/03/16 21:00 Dose: 1 supp Calcium Citrate (Calcitrate + Vit D Cap (315 Mg/250 Units)) 1 each PO BIDMEALS [facility] Last Admin: 09/03/16 12:51 Dose: Not Given Levofloxacin/Dextrose 750 mg/ (Premix) 150 mls @ 100 mls/hr IV ONETIME ONE Stop: 09/02/16 01:33 Last Admin: 09/02/16 00:17 Dose: 100 mls/hr Azithromycin 500 mg/ Sodium (Chloride) 250 mls @ 250 mls/hr IV Q24H [facility] Last Admin: 09/02/16 02:10 Dose: 250 mls/hr Vancomycin HCl 1 gm/ Sodium (Chloride) 250 mls @ 166 mls/hr IV ONETIME ONE Stop: 09/02/16 04:30 Last Admin: 09/02/16 02:44 Dose: 166 mls/hr Vancomycin HCl 0.75 gm/ Sodium (Chloride) 250 mls @ 166.667 mls/hr IV Q24H [facility] Last Admin: 09/02/16 05:05 Dose: Not Given Meropenem 1 gm/ Sodium (Chloride) 100 mls @ 200 mls/hr IV Q8H [facility] Meropenem 500 mg/ Sodium (Chloride) 100 mls @ 100 mls/hr IV Q12H [facility] Last Admin: 09/02/16 03:30 Dose: 100 mls/hr Methylprednisolone Sodium Succinate (Solu-Medrol) 125 mg IVPUSH ONETIME ONE Stop: 09/02/16 00:06 Last Admin: 09/02/16 00:14 Dose: 125 mg Polyethylene Glycol (Miralax) 17 gm PO ONETIME ONE Stop: 09/03/16 16:06 Last Admin: 09/03/16 17:43 Dose: Not Given - Exam Quality Assessment: supplemental oxygen General: alert HEENT: Pupils equal Neck: trachea midline Lungs: Decreased breath sounds, Rhonchi, Wheezing Cardiovascular: Regular Rate Abdomen: bowel sounds present (Female) Exam: Deferred Back Exam: normal inspection Skin: warm Wound/Incisions: other (n/a) Neurological: no new focal deficit Psy/Mental Status: alert, anxious (mildly) - Problem List Review Problem List Initiated/Reviewed/Updated: Yes - My Orders Last 24 Hours: My Active Orders 09/03/16 21:09 Communication Order [RC] ROUTINE - Assessment Assessment:: pulmonary fibrosis with marginal reserve no evidence of UTI, culture polymicrobial as expected from stoma - Plan Plan:: I was present with he resident during the history and exam. i discussed the case with the resident and agree with the findings and plan documented in the resident's note
[2016-09-04] MEDS: ALPRAZolam 0.25 MG Tab PO PRN (15:22)
[2016-09-04] MEDS ORDERED: ALPRAZolam 0.25 MG Tab PO ONE (17:41)
[2016-09-04] MEDS: Cyclobenzaprine 5 MG Tab PO SCH (20:38)
[2016-09-04] MEDS: atorvaSTATin 10 MG Tab PO SCH (20:38)
[2016-09-04] MEDS: Mirtazapine 15 MG Tab PO SCH (20:38)
[2016-09-05] MEDS: Albuterol/Ipratropium 3.0-0.5 MG/3 ML Neb Soln NEB SCH ×10 (02:56→22:30)
[2016-09-05] MEDS: Meropenem 500 MG in Sodium Chloride 0.9% 100 ML IV SCH ×2 (04:52→17:29)
[2016-09-05] MEDS: Polymyxin B/Trimethoprim 10 ML Bottle EYEBOTH SCH (09:10)
[2016-09-05] MEDS: Docusate Sodium 100 MG Cap PO SCH (09:35)
[2016-09-05] MEDS: Clopidogrel 75 MG Tab PO SCH (09:35)
[2016-09-05] MEDS: Calcium Carbonate/Vitamin D3 1500 MG-400 Units Tab PO SCH ×2 (09:35→17:29)
[2016-09-05] MEDS: PARoxetine 20 MG Tab PO SCH (09:35)
[2016-09-05] MEDS: Aspirin 81 MG Tab.Chew PO SCH (09:35)
[2016-09-05] MEDS: Ferrous Sulfate 325 MG Tab PO SCH ×2 (09:35→20:34)
[2016-09-05] MEDS: Furosemide 20 MG Tab PO SCH (09:35)
[2016-09-05] MEDS: methylPREDNISolone Sodium Succinate 125 MG/2 ML SDV IVPUSH SCH ×3 (09:36→23:59)
[2016-09-05] MEDS: Heparin Sodium 5,000 Units/ML Vial SUBCUT SCH ×2 (09:36→21:54)
[2016-09-05] MEDS: Metoprolol Tartrate 25 MG Tab PO SCH ×2 (09:37→20:28)
[2016-09-05] MEDS: Acetaminophen 500 MG Tab PO PRN (11:01)
[2016-09-05] MEDS: ALPRAZolam 0.25 MG Tab PO PRN ×2 (11:01→18:12)
--- NOTE | 2016-09-05 16:38 | PCM.PN ---
- General Info Date of Service: 09/05/16 Functional Status: Reports: pain controlled - Review of Systems General: Reports: No Symptoms HEENT: Reports: other (feels ear are"blocked" from inside, trouble hearing) Pulmonary: Reports: shortness of breath (not so bad today) Cardiovascular: Reports: No Symptoms Gastrointestinal: Reports: Constipation Genitourinary: Reports: no symptoms Musculoskeletal: Reports: no symptoms Skin: Reports: no symptoms Neurological: Reports: No Symptoms Psychiatric: Reports: no symptoms - Patient Data Vitals - most recent: Last Vital Signs Temp 36.9 C 09/05/16 12:00 Pulse 96 09/05/16 12:00 Resp 18 09/05/16 12:00 BP 120/90 09/05/16 12:00 Pulse Ox 88 L 09/05/16 12:00 Weight - most recent: 56.3 kg I&O - last 24 hours: Intake & Output 09/05/16 09/05/16 09/05/16 06:59 14:59 22:59 Intake Total 950 Output Total 900 Balance 50 Lab Results last 24 hrs: Laboratory Results - last 24 hr 09/05/16 09/05/16 09/05/16 Range/Units 02:30 02:30 02:30 WBC 19.45 H (4.0-11.0) K/uL RBC 3.07 L (4.30-5.90) M/uL Hgb 9.6 L (12.0-16.0) g/dL Hct 30.2 L (36.0-46.0) % MCV 98.4 H (80.0-98.0) fL MCH 31.3 (27.0-32.0) pg MCHC 31.8 (31.0-37.0) g/dL RDW Std Deviation 54.2 (28.0-62.0) fl RDW Coeff of Masood 15 (11.0-15.0) % Plt Count 161 (150-400) K/uL MPV 12.80 H (7.40-12.00) fL Add Manual Diff YES Neutrophils % (Manual) 92 H (48.0-80.0) % Band Neutrophils % 2 % Lymphocytes % (Manual) 3 L (16.0-40.0) % Monocytes % (Manual) 3 (0.0-15.0) % Nucleated RBC % 0.0 /100WBC Absolute Seg Neuts 17.9 Band Neutrophils # 0.4 Lymphocytes # (Manual) 0.6 Monocytes # (Manual) 0.6 Nucleated RBCs # 0 K/uL Sodium 136 (136-146) mmol/L Potassium 4.5 (3.5-5.1) mmol/L Chloride 103 (98-110) mmol/L Carbon Dioxide 20 L (21-31) mmol/L BUN 57 H (6.0-23.0) mg/dL Creatinine 1.7 H (0.6-1.5) mg/dL Est Cr Clr Drug Dosing 19.61 mL/min Estimated GFR (MDRD) 28.4 ml/min Glucose 130 H (60-110) mg/dL Calcium 8.4 L (8.8-10.8) mg/dL Vancomycin Trough 17.6 H (5-15) ug/mL Med Orders - Current: Current Medications Acetaminophen (Tylenol Extra Strength) 500 mg PO Q4H PRN PRN Reason: Pain/Fever Last Admin: 09/05/16 11:01 Dose: 500 mg Albuterol/Ipratropium (Duoneb 3.0-0.5 Mg/3 Ml) 3 ml NEB Q4HRRT [facility] Last Admin: 09/05/16 13:54 Dose: 3 ml Alprazolam (Xanax) 0.25 mg PO Q4H PRN PRN Reason: Anxiety Last Admin: 09/05/16 11:01 Dose: 0.25 mg Aspirin (Aspirin) 81 mg PO DAILY [facility] Last Admin: 09/05/16 09:35 Dose: 81 mg Atorvastatin Calcium (Lipitor) 10 mg PO BEDTIME [facility] Last Admin: 09/04/16 20:38 Dose: 10 mg Calcium Carbonate (Caltrate 600+D 1500 Mg-400 Units) 0.5 tab PO BIDMEALS [facility] Last Admin: 09/05/16 09:35 Dose: 0.5 tab Clopidogrel Bisulfate (Plavix) 75 mg PO DAILY [facility] Last Admin: 09/05/16 09:35 Dose: 75 mg Cyclobenzaprine HCl (Flexeril) 5 mg PO BEDTIME [facility] Last Admin: 09/04/16 20:38 Dose: 5 mg Cyclobenzaprine HCl (Flexeril) 5 mg PO BID PRN PRN Reason: muscle spasms/back Docusate Sodium (Colace) 100 mg PO DAILY [facility] Last Admin: 09/05/16 09:35 Dose: 100 mg Ferrous Sulfate (Ferrous Sulfate) 325 mg PO BID [facility] Last Admin: 09/05/16 09:35 Dose: 325 mg Furosemide (Lasix) 20 mg PO DAILY [facility] Last Admin: 09/05/16 09:35 Dose: 20 mg Heparin Sodium (Porcine) (Heparin Sodium) 5,000 units SUBCUT Q12HR [facility] Last Admin: 09/05/16 09:36 Dose: 5,000 units Vancomycin HCl 0.75 gm/ Sodium (Chloride) 250 mls @ 166.667 mls/hr IV Q24H [facility] Last Admin: 09/05/16 03:12 Dose: 166.667 mls/hr Meropenem 500 mg/ Sodium (Chloride) 100 mls @ 100 mls/hr IV Q12H [facility] Last Admin: 09/05/16 04:52 Dose: 100 mls/hr Levalbuterol HCl (Xopenex) 1.25 mg NEB Q4H PRN PRN Reason: Cough Last Admin: 09/03/16 23:07 Dose: 1.25 mg Loperamide HCl (Imodium) 2 mg PO QID PRN PRN Reason: Diarrhea Methylprednisolone Sodium Succinate (Solu-Medrol) 125 mg IVPUSH Q8H [facility] Last Admin: 09/05/16 09:36 Dose: 125 mg Metoprolol Tartrate (Lopressor) 25 mg PO BID [facility] Last Admin: 09/05/16 09:37 Dose: 25 mg Mirtazapine (Remeron) 30 mg PO BEDTIME [facility] Last Admin: 09/04/16 20:38 Dose: 30 mg Paroxetine HCl (Paxil) 20 mg PO DAILY [facility] Last Admin: 09/05/16 09:35 Dose: 20 mg Polymyxin/Trimethoprim Sulfate (Polytrim Ophth Soln) 0 ml EYEBOTH DAILY [facility] Last Admin: 09/05/16 09:10 Dose: 1 drop Sodium Chloride (Saline Flush) 10 ml FLUSH ASDIRECTED PRN PRN Reason: Keep Vein Open Sodium Chloride (Saline Flush) 2.5 ml FLUSH ASDIRECTED PRN PRN Reason: Keep Vein Open Vancomycin HCl (Pharmacy To Dose - Vancomycin) 1 dose .XX ASDIRECTED [facility] Discontinued Medications Acetaminophen (Tylenol) 1,000 mg PO NOW ONE Stop: 09/02/16 00:31 Last Admin: 09/02/16 00:36 Dose: 1,000 mg Albuterol/Ipratropium (Duoneb 3.0-0.5 Mg/3 Ml) Confirm Administered Dose 3 ml .ROUTE .STK-MED ONE Stop: 09/01/16 22:49 Last Admin: 09/01/16 22:45 Dose: 3 ml Alprazolam (Xanax) 0.25 mg PO ONETIME ONE Stop: 09/04/16 17:42 Last Admin: 09/04/16 17:53 Dose: 0.25 mg Belladonna Alkaloids/Opium (B & O Supprettes No. 15a) 1 supp RECTAL ONETIME ONE Stop: 09/03/16 21:06 Last Admin: 09/03/16 21:00 Dose: 1 supp Calcium Citrate (Calcitrate + Vit D Cap (315 Mg/250 Units)) 1 each PO BIDMEALS [facility] Last Admin: 09/03/16 12:51 Dose: Not Given Diazepam (Valium) 2 mg PO BID PRN PRN Reason: agitation/restlessness Last Admin: 09/03/16 22:30 Dose: 2 mg Levofloxacin/Dextrose 750 mg/ (Premix) 150 mls @ 100 mls/hr IV ONETIME ONE Stop: 09/02/16 01:33 Last Admin: 09/02/16 00:17 Dose: 100 mls/hr Azithromycin 500 mg/ Sodium (Chloride) 250 mls @ 250 mls/hr IV Q24H [facility] Last Admin: 09/02/16 02:10 Dose: 250 mls/hr Vancomycin HCl 1 gm/ Sodium (Chloride) 250 mls @ 166 mls/hr IV ONETIME ONE Stop: 09/02/16 04:30 Last Admin: 09/02/16 02:44 Dose: 166 mls/hr Vancomycin HCl 0.75 gm/ Sodium (Chloride) 250 mls @ 166.667 mls/hr IV Q24H [facility] Last Admin: 09/02/16 05:05 Dose: Not Given Meropenem 1 gm/ Sodium (Chloride) 100 mls @ 200 mls/hr IV Q8H [facility] Meropenem 500 mg/ Sodium (Chloride) 100 mls @ 100 mls/hr IV Q12H [facility] Last Admin: 09/02/16 03:30 Dose: 100 mls/hr Methylprednisolone Sodium Succinate (Solu-Medrol) 125 mg IVPUSH ONETIME ONE Stop: 09/02/16 00:06 Last Admin: 09/02/16 00:14 Dose: 125 mg Polyethylene Glycol (Miralax) 17 gm PO ONETIME ONE Stop: 09/03/16 16:06 Last Admin: 09/03/16 17:43 Dose: Not Given - Exam Quality Assessment: supplemental oxygen General: alert HEENT: Mucous membr. moist/pink, Other (ear canals patent no wax, throat clear) Neck: trachea midline Lungs: Decreased breath sounds, Rales, Rhonchi Cardiovascular: Regular Rate Abdomen: bowel sounds present, soft (Female) Exam: Deferred Back Exam: normal inspection Extremities: no edema - Problem List Review Problem List Initiated/Reviewed/Updated: Yes - My Orders Last 24 Hours: wbc has risen to 20k unclear reason tenuous pulmonary status - Assessment Assessment:: pulmonary fibrosis with marginal reserve no evidence of UTI, culture polymicrobial as expected from stoma wbc has risen to 20k, on massive dose of steroids Will decrease solumedrol also creatinine rising, will hold lasix - Plan Plan:: I was present with he resident during the history and exam. i discussed the case with the resident and agree with the findings and plan documented in the resident's note
[2016-09-05] MEDS: methylPREDNISolone Sodium Succinate 40 MG/1 ML SDV IVPUSH SCH (17:28)
[2016-09-05] MEDS: Cyclobenzaprine 5 MG Tab PO SCH (20:28)
[2016-09-05] MEDS: Mirtazapine 15 MG Tab PO SCH (20:28)
[2016-09-05] MEDS: atorvaSTATin 10 MG Tab PO SCH (20:29)
[2016-09-06] MEDS: ALPRAZolam 0.25 MG Tab PO PRN ×2 (00:08→17:28)
[2016-09-06] MEDS: methylPREDNISolone Sodium Succinate 40 MG/1 ML SDV IVPUSH SCH ×4 (00:08→23:58)
[2016-09-06] MEDS: methylPREDNISolone Sodium Succinate 125 MG/2 ML SDV IVPUSH SCH (00:09)
[2016-09-06] MEDS: Albuterol/Ipratropium 3.0-0.5 MG/3 ML Neb Soln NEB SCH ×6 (03:10→21:21)
[2016-09-06] MEDS: Meropenem 500 MG in Sodium Chloride 0.9% 100 ML IV SCH ×2 (05:00→15:23)
[2016-09-06] MEDS: Calcium Carbonate/Vitamin D3 1500 MG-400 Units Tab PO SCH ×2 (08:12→16:16)
[2016-09-06] MEDS: Aspirin 81 MG Tab.Chew PO SCH (08:13)
[2016-09-06] MEDS: Metoprolol Tartrate 25 MG Tab PO SCH (08:13)
[2016-09-06] MEDS: Docusate Sodium 100 MG Cap PO SCH (08:13)
[2016-09-06] MEDS: Ferrous Sulfate 325 MG Tab PO SCH ×2 (08:13→21:41)
[2016-09-06] MEDS: PARoxetine 20 MG Tab PO SCH (08:13)
[2016-09-06] MEDS: Furosemide 20 MG Tab PO SCH (08:13)
[2016-09-06] MEDS: Clopidogrel 75 MG Tab PO SCH (08:13)
[2016-09-06] MEDS: Heparin Sodium 5,000 Units/ML Vial SUBCUT SCH ×2 (08:13→21:44)
[2016-09-06] MEDS: Polymyxin B/Trimethoprim 10 ML Bottle EYEBOTH SCH (08:14)
[2016-09-06] MEDS ORDERED: Oxymetazoline 0.05% Nasal Spray 15 ML Bottle NAS PRN (15:01)
--- NOTE | 2016-09-06 15:08 | PCM.PN ---
<LakhwinderGeovanny - Last Filed: 09/06/16 15:08> - General Info Date of Service: 09/06/16 Admission Dx/Problem (Free Text): Dyspnea Subjective Update: Still feeling short of breath but better than yesterday. Really would like to go home. Eating and eliminating without difficulty. No other complaints. Functional Status: Reports: pain controlled, tolerating diet, ambulating - Review of Systems General: Reports: Weakness, Fatigue. Denies: Fever, Chills HEENT: Denies: headaches Pulmonary: Reports: shortness of breath, wheezing. Denies: pleuritic chest pain , hemoptysis Cardiovascular: Denies: Chest Pain, Palpitations, Edema Gastrointestinal: Denies: Abdominal pain, Diarrhea, Nausea Genitourinary: Denies: dysuria, hematuria Musculoskeletal: Denies: neck pain, leg pain Skin: Denies: cyanosis Neurological: Denies: Confusion Psychiatric: Denies: confusion - Patient Data Vitals - most recent: Last Vital Signs Temp 37.0 C 09/06/16 11:00 Pulse 85 09/06/16 11:00 Resp 18 09/06/16 11:00 BP 152/99 H 09/06/16 11:00 Pulse Ox 95 09/06/16 11:00 Weight - most recent: 56.3 kg I&O - last 24 hours: Intake & Output 09/06/16 09/06/16 09/06/16 06:59 14:59 22:59 Intake Total 850 Output Total 550 Balance 300 Lab Results last 24 hrs: Laboratory Results - last 24 hr 09/06/16 09/06/16 Range/Units 05:20 05:20 WBC 14.34 H (4.0-11.0) K/uL RBC 3.09 L (4.30-5.90) M/uL Hgb 9.5 L (12.0-16.0) g/dL Hct 30.7 L (36.0-46.0) % MCV 99.4 H (80.0-98.0) fL MCH 30.7 (27.0-32.0) pg MCHC 30.9 L (31.0-37.0) g/dL RDW Std Deviation 54.8 (28.0-62.0) fl RDW Coeff of Masood 15 (11.0-15.0) % Plt Count 170 (150-400) K/uL MPV 12.90 H (7.40-12.00) fL Add Manual Diff YES Neutrophils % (Manual) 92 H (48.0-80.0) % Band Neutrophils % 8 % Nucleated RBC % 0.0 /100WBC Absolute Seg Neuts 13.2 Band Neutrophils # 1.1 Nucleated RBCs # 0 K/uL Sodium 138 (136-146) mmol/L Potassium 4.5 (3.5-5.1) mmol/L Chloride 106 (98-110) mmol/L Carbon Dioxide 20 L (21-31) mmol/L BUN 67 H (6.0-23.0) mg/dL Creatinine 1.8 H (0.6-1.5) mg/dL Est Cr Clr Drug Dosing 18.52 mL/min Estimated GFR (MDRD) 26.6 ml/min Glucose 151 H (60-110) mg/dL Calcium 8.4 L (8.8-10.8) mg/dL Akbar Results last 24 hrs: Microbiology 09/05/16 22:00 Stool Occult Blood (AKBAR) - Final Stool / Feces NEGATIVE OCCULT BLOOD Med Orders - Current: Current Medications Acetaminophen (Tylenol Extra Strength) 500 mg PO Q4H PRN PRN Reason: Pain/Fever Last Admin: 09/05/16 11:01 Dose: 500 mg Albuterol/Ipratropium (Duoneb 3.0-0.5 Mg/3 Ml) 3 ml NEB Q4HRRT [facility] Last Admin: 09/06/16 13:37 Dose: 3 ml Alprazolam (Xanax) 0.25 mg PO Q4H PRN PRN Reason: Anxiety Last Admin: 09/06/16 00:08 Dose: 0.25 mg Aspirin (Aspirin) 81 mg PO DAILY [facility] Last Admin: 09/06/16 08:13 Dose: 81 mg Atorvastatin Calcium (Lipitor) 10 mg PO BEDTIME [facility] Last Admin: 09/05/16 20:29 Dose: 10 mg Calcium Carbonate (Caltrate 600+D 1500 Mg-400 Units) 0.5 tab PO BIDMEALS [facility] Last Admin: 09/06/16 08:12 Dose: 0.5 tab Clopidogrel Bisulfate (Plavix) 75 mg PO DAILY [facility] Last Admin: 09/06/16 08:13 Dose: 75 mg Cyclobenzaprine HCl (Flexeril) 5 mg PO BEDTIME [facility] Last Admin: 09/05/16 20:28 Dose: 5 mg Cyclobenzaprine HCl (Flexeril) 5 mg PO BID PRN PRN Reason: muscle spasms/back Docusate Sodium (Colace) 100 mg PO DAILY [facility] Last Admin: 09/06/16 08:13 Dose: 100 mg Ferrous Sulfate (Ferrous Sulfate) 325 mg PO BID [facility] Last Admin: 09/06/16 08:13 Dose: 325 mg Fluticasone Propionate (Flonase) 50 gm NASBOTH BID [facility] Furosemide (Lasix) 20 mg PO DAILY [facility] Last Admin: 09/06/16 08:13 Dose: 20 mg Heparin Sodium (Porcine) (Heparin Sodium) 5,000 units SUBCUT Q12HR [facility] Last Admin: 09/06/16 08:13 Dose: 5,000 units Vancomycin HCl 0.75 gm/ Sodium (Chloride) 250 mls @ 166.667 mls/hr IV Q24H [facility] Last Admin: 09/06/16 03:10 Dose: 166.667 mls/hr Meropenem 500 mg/ Sodium (Chloride) 100 mls @ 100 mls/hr IV Q12H [facility] Last Admin: 09/06/16 05:00 Dose: 100 mls/hr Levalbuterol HCl (Xopenex) 1.25 mg NEB Q4H PRN PRN Reason: Cough Last Admin: 09/03/16 23:07 Dose: 1.25 mg Loperamide HCl (Imodium) 2 mg PO QID PRN PRN Reason: Diarrhea Methylprednisolone Sodium Succinate (Solu-Medrol) 40 mg IVPUSH Q8H [facility] Last Admin: 09/06/16 08:12 Dose: 40 mg Metoprolol Tartrate (Lopressor) 25 mg PO BID [facility] Last Admin: 09/06/16 08:13 Dose: 25 mg Mirtazapine (Remeron) 30 mg PO BEDTIME [facility] Last Admin: 09/05/16 20:28 Dose: 30 mg Oxymetazoline HCl (Afrin Original 0.05% Nasal [place]) 1 ml GARY BID PRN PRN Reason: Congestion Paroxetine HCl (Paxil) 20 mg PO DAILY [facility] Last Admin: 09/06/16 08:13 Dose: 20 mg Polymyxin/Trimethoprim Sulfate (Polytrim Ophth Soln) 0 ml EYEBOTH DAILY [facility] Last Admin: 09/06/16 08:14 Dose: 1 drop Sodium Chloride (Saline Flush) 10 ml FLUSH ASDIRECTED PRN PRN Reason: Keep Vein Open Sodium Chloride (Saline Flush) 2.5 ml FLUSH ASDIRECTED PRN PRN Reason: Keep Vein Open Vancomycin HCl (Pharmacy To Dose - Vancomycin) 1 dose .XX ASDIRECTED MACIEJ Discontinued Medications Acetaminophen (Tylenol) 1,000 mg PO NOW ONE Stop: 09/02/16 00:31 Last Admin: 09/02/16 00:36 Dose: 1,000 mg Albuterol/Ipratropium (Duoneb 3.0-0.5 Mg/3 Ml) Confirm Administered Dose 3 ml .ROUTE .STK-MED ONE Stop: 09/01/16 22:49 Last Admin: 09/01/16 22:45 Dose: 3 ml Alprazolam (Xanax) 0.25 mg PO ONETIME ONE Stop: 09/04/16 17:42 Last Admin: 09/04/16 17:53 Dose: 0.25 mg Belladonna Alkaloids/Opium (B & O Supprettes No. 15a) 1 supp RECTAL ONETIME ONE Stop: 09/03/16 21:06 Last Admin: 09/03/16 21:00 Dose: 1 supp Calcium Citrate (Calcitrate + Vit D Cap (315 Mg/250 Units)) 1 each PO BIDMEALS [facility] Last Admin: 09/03/16 12:51 Dose: Not Given Diazepam (Valium) 2 mg PO BID PRN PRN Reason: agitation/restlessness Last Admin: 09/03/16 22:30 Dose: 2 mg Levofloxacin/Dextrose 750 mg/ (Premix) 150 mls @ 100 mls/hr IV ONETIME ONE Stop: 09/02/16 01:33 Last Admin: 09/02/16 00:17 Dose: 100 mls/hr Azithromycin 500 mg/ Sodium (Chloride) 250 mls @ 250 mls/hr IV Q24H [facility] Last Admin: 09/02/16 02:10 Dose: 250 mls/hr Vancomycin HCl 1 gm/ Sodium (Chloride) 250 mls @ 166 mls/hr IV ONETIME ONE Stop: 09/02/16 04:30 Last Admin: 09/02/16 02:44 Dose: 166 mls/hr Vancomycin HCl 0.75 gm/ Sodium (Chloride) 250 mls @ 166.667 mls/hr IV Q24H [facility] Last Admin: 09/02/16 05:05 Dose: Not Given Meropenem 1 gm/ Sodium (Chloride) 100 mls @ 200 mls/hr IV Q8H [facility] Meropenem 500 mg/ Sodium (Chloride) 100 mls @ 100 mls/hr IV Q12H [facility] Last Admin: 09/02/16 03:30 Dose: 100 mls/hr Methylprednisolone Sodium Succinate (Solu-Medrol) 125 mg IVPUSH ONETIME ONE Stop: 09/02/16 00:06 Last Admin: 09/02/16 00:14 Dose: 125 mg Methylprednisolone Sodium Succinate (Solu-Medrol) 125 mg IVPUSH Q8H [facility] Last Admin: 09/06/16 00:09 Dose: Not Given Polyethylene Glycol (Miralax) 17 gm PO ONETIME ONE Stop: 09/03/16 16:06 Last Admin: 09/03/16 17:43 Dose: Not Given - Exam Quality Assessment: supplemental oxygen, DVT prophylaxis General: alert, oriented, cooperative, no acute distress HEENT: Pupils equal, Pupils reactive, EOMI, Mucous membr. moist/pink Neck: supple, trachea midline, no JVD Lungs: Normal respiratory effort, Crackles, Rhonchi, Wheezing Cardiovascular: Regular Rate, Regular Rhythm Abdomen: bowel sounds present, soft, no tenderness, no distension Extremities: no edema, normal pulses, no tenderness/swelling, no calf tenderness Peripheral Pulses: 2+: radial (L), radial (R), posterior tibial (L), posterior tibial (R), dorsalis pedis (L), dorsalis pedis (R) Skin: warm, dry, intact Neurological: no new focal deficit Psy/Mental Status: alert, normal affect, normal mood - Problem List & Annotations (1) CAD (coronary artery disease) SNOMED Code(s): 86017890 Code(s): I25.10 - ATHSCL HEART DISEASE OF [place] CORONARY ARTERY W/O ANG PCTRS Status: Chronic Priority: Medium Current Visit: Yes Qualifiers: Coronary Disease-Associated Artery/Lesion type: unspecified vessel or lesion type [place] vs. transplanted heart: [place] heart Associated angina: angina presence unspecified Qualified Code(s): I25.10 - Atherosclerotic heart disease of [place] coronary artery without angina pectoris (2) HTN (hypertension) SNOMED Code(s): 43465726 Code(s): I10 - ESSENTIAL (PRIMARY) HYPERTENSION Status: Chronic Priority : Medium Current Visit: Yes Qualifiers: Hypertension type: essential hypertension Qualified Code(s): I10 - Essential (primary) hypertension (3) COPD (chronic obstructive pulmonary disease) SNOMED Code(s): 23086614 Code(s): J44.9 - CHRONIC OBSTRUCTIVE PULMONARY DISEASE, UNSPECIFIED Status : Acute Priority: High Current Visit: Yes Qualifiers: COPD type: COPD with acute exacerbation Qualified Code(s): J44.1 - Chronic obstructive pulmonary disease with (acute) exacerbation (4) Dyspnea SNOMED Code(s): 582359876 Code(s): R06.00 - DYSPNEA, UNSPECIFIED Status: Acute Priority: High Current Visit: Yes Qualifiers: Dyspnea type: shortness of breath Qualified Code(s): R06.02 - Shortness of breath (5) Pulmonary fibrosis SNOMED Code(s): 79637769 Code(s): J84.10 - PULMONARY FIBROSIS, UNSPECIFIED Status: Chronic Priority: High Current Visit: Yes - Problem List Review Problem List Initiated/Reviewed/Updated: Yes - My Orders Last 24 Hours: My Active Orders 09/06/16 15:01 Oxymetazoline [Afrin Original 0.05% Nasal [place]] 1 ml GARY BID PRN 09/06/16 15:15 Fluticasone Propionate [Flonase] 50 gm NASBOTH BID 09/07/16 05:00 BASIC METABOLIC PANEL,BMP [CHEM] DAILY CBC WITH AUTO DIFF [HEME] DAILY 09/08/16 05:00 BASIC METABOLIC PANEL,BMP [CHEM] DAILY CBC WITH AUTO DIFF [HEME] DAILY - Plan Plan:: 85 yo female [facility] resident admitted 09/01/16 for dyspnea with pmh of significant pulmonary fibrosis (home O2 3L), COPD, CAD, [place] with stents on plavix , CKD, hypertension and hyperlipidemia Dyspnea: Required additional oxygen yesterday which may have been anxiety related. White count elevated yesterday most likely from steroids. No evidence of pneumonia on CXR previously. Cont. Meropenum Day 5 and Vanc Day5 five. UTI: On Meropenem Day 5. COPD: Mild exacerbation cont. duo-nebs and Solumedrol and will monitor closely. Home O2 is 3L/nc CAD/MO: Stable will cont. home meds. CKD: Stable at this time will monitor closely and cont. home meds. Htn/hyperlipidemia: Stable will cont. home meds. VTE: Heparin and SCD Dispo: Tomorrow pending. <Hayden Sawant O - Last Filed: 09/06/16 15:54> - Patient Data Vitals - most recent: Last Vital Signs Temp 37.0 C 09/06/16 11:00 Pulse 85 09/06/16 11:00 Resp 18 09/06/16 11:00 BP 152/99 H 09/06/16 11:00 Pulse Ox 95 09/06/16 11:00 I&O - last 24 hours: Intake & Output 09/06/16 09/06/16 09/06/16 06:59 14:59 22:59 Intake Total 850 Output Total 550 Balance 300 Lab Results last 24 hrs: Laboratory Results - last 24 hr 09/06/16 09/06/16 Range/Units 05:20 05:20 WBC 14.34 H (4.0-11.0) K/uL RBC 3.09 L (4.30-5.90) M/uL Hgb 9.5 L (12.0-16.0) g/dL Hct 30.7 L (36.0-46.0) % MCV 99.4 H (80.0-98.0) fL MCH 30.7 (27.0-32.0) pg MCHC 30.9 L (31.0-37.0) g/dL RDW Std Deviation 54.8 (28.0-62.0) fl RDW Coeff of Masood 15 (11.0-15.0) % Plt Count 170 (150-400) K/uL MPV 12.90 H (7.40-12.00) fL Add Manual Diff YES Neutrophils % (Manual) 92 H (48.0-80.0) % Band Neutrophils % 8 % Nucleated RBC % 0.0 /100WBC Absolute Seg Neuts 13.2 Band Neutrophils # 1.1 Nucleated RBCs # 0 K/uL Sodium 138 (136-146) mmol/L Potassium 4.5 (3.5-5.1) mmol/L Chloride 106 (98-110) mmol/L Carbon Dioxide 20 L (21-31) mmol/L BUN 67 H (6.0-23.0) mg/dL Creatinine 1.8 H (0.6-1.5) mg/dL Est Cr Clr Drug Dosing 18.52 mL/min Estimated GFR (MDRD) 26.6 ml/min Glucose 151 H (60-110) mg/dL Calcium 8.4 L (8.8-10.8) mg/dL Akbar Results last 24 hrs: Microbiology 09/05/16 22:00 Stool Occult Blood (AKBAR) - Final Stool / Feces NEGATIVE OCCULT BLOOD Med Orders - Current: Current Medications Acetaminophen (Tylenol Extra Strength) 500 mg PO Q4H PRN PRN Reason: Pain/Fever Last Admin: 09/06/16 15:38 Dose: 500 mg Albuterol/Ipratropium (Duoneb 3.0-0.5 Mg/3 Ml) 3 ml NEB Q4HRRT [facility] Last Admin: 09/06/16 13:37 Dose: 3 ml Alprazolam (Xanax) 0.25 mg PO Q4H PRN PRN Reason: Anxiety Last Admin: 09/06/16 00:08 Dose: 0.25 mg Aspirin (Aspirin) 81 mg PO DAILY [facility] Last Admin: 09/06/16 08:13 Dose: 81 mg Atorvastatin Calcium (Lipitor) 10 mg PO BEDTIME [facility] Last Admin: 09/05/16 20:29 Dose: 10 mg Calcium Carbonate (Caltrate 600+D 1500 Mg-400 Units) 0.5 tab PO BIDMEALS [facility] Last Admin: 09/06/16 08:12 Dose: 0.5 tab Clopidogrel Bisulfate (Plavix) 75 mg PO DAILY [facility] Last Admin: 09/06/16 08:13 Dose: 75 mg Cyclobenzaprine HCl (Flexeril) 5 mg PO BEDTIME [facility] Last Admin: 09/05/16 20:28 Dose: 5 mg Cyclobenzaprine HCl (Flexeril) 5 mg PO BID PRN PRN Reason: muscle spasms/back Docusate Sodium (Colace) 100 mg PO DAILY [facility] Last Admin: 09/06/16 08:13 Dose: 100 mg Ferrous Sulfate (Ferrous Sulfate) 325 mg PO BID [facility] Last Admin: 09/06/16 08:13 Dose: 325 mg Fluticasone Propionate (Flonase) 0 gm NASBOTH BID [facility] Furosemide (Lasix) 20 mg PO DAILY [facility] Last Admin: 09/06/16 08:13 Dose: 20 mg Heparin Sodium (Porcine) (Heparin Sodium) 5,000 units SUBCUT Q12HR [facility] Last Admin: 09/06/16 08:13 Dose: 5,000 units Vancomycin HCl 0.75 gm/ Sodium (Chloride) 250 mls @ 166.667 mls/hr IV Q24H [facility] Last Admin: 09/06/16 03:10 Dose: 166.667 mls/hr Meropenem 500 mg/ Sodium (Chloride) 100 mls @ 100 mls/hr IV Q12H [facility] Last Admin: 09/06/16 15:23 Dose: 100 mls/hr Levalbuterol HCl (Xopenex) 1.25 mg NEB Q4H PRN PRN Reason: Cough Last Admin: 09/03/16 23:07 Dose: 1.25 mg Loperamide HCl (Imodium) 2 mg PO QID PRN PRN Reason: Diarrhea Methylprednisolone Sodium Succinate (Solu-Medrol) 40 mg IVPUSH Q8H [facility] Last Admin: 09/06/16 08:12 Dose: 40 mg Metoprolol Tartrate (Lopressor) 25 mg PO BID [facility] Last Admin: 09/06/16 08:13 Dose: 25 mg Mirtazapine (Remeron) 30 mg PO BEDTIME [facility] Last Admin: 09/05/16 20:28 Dose: 30 mg Oxymetazoline HCl (Afrin Original 0.05% Nasal [place]) 0 ml GARY BID PRN PRN Reason: Congestion Paroxetine HCl (Paxil) 20 mg PO DAILY [facility] Last Admin: 09/06/16 08:13 Dose: 20 mg Polymyxin/Trimethoprim Sulfate (Polytrim Ophth Soln) 0 ml EYEBOTH DAILY [facility] Last Admin: 09/06/16 08:14 Dose: 1 drop Sodium Chloride (Saline Flush) 10 ml FLUSH ASDIRECTED PRN PRN Reason: Keep Vein Open Sodium Chloride (Saline Flush) 2.5 ml FLUSH ASDIRECTED PRN PRN Reason: Keep Vein Open Vancomycin HCl (Pharmacy To Dose - Vancomycin) 1 dose .XX ASDIRECTED [facility] Discontinued Medications Acetaminophen (Tylenol) 1,000 mg PO NOW ONE Stop: 09/02/16 00:31 Last Admin: 09/02/16 00:36 Dose: 1,000 mg Albuterol/Ipratropium (Duoneb 3.0-0.5 Mg/3 Ml) Confirm Administered Dose 3 ml .ROUTE .STK-MED ONE Stop: 09/01/16 22:49 Last Admin: 09/01/16 22:45 Dose: 3 ml Alprazolam (Xanax) 0.25 mg PO ONETIME ONE Stop: 09/04/16 17:42 Last Admin: 09/04/16 17:53 Dose: 0.25 mg Belladonna Alkaloids/Opium (B & O Supprettes No. 15a) 1 supp RECTAL ONETIME ONE Stop: 09/03/16 21:06 Last Admin: 09/03/16 21:00 Dose: 1 supp Calcium Citrate (Calcitrate + Vit D Cap (315 Mg/250 Units)) 1 each PO BIDMEALS [facility] Last Admin: 09/03/16 12:51 Dose: Not Given Diazepam (Valium) 2 mg PO BID PRN PRN Reason: agitation/restlessness Last Admin: 09/03/16 22:30 Dose: 2 mg Fluticasone Propionate (Flonase) 50 gm NASBOTH BID [facility] Levofloxacin/Dextrose 750 mg/ (Premix) 150 mls @ 100 mls/hr IV ONETIME ONE Stop: 09/02/16 01:33 Last Admin: 09/02/16 00:17 Dose: 100 mls/hr Azithromycin 500 mg/ Sodium (Chloride) 250 mls @ 250 mls/hr IV Q24H [facility] Last Admin: 09/02/16 02:10 Dose: 250 mls/hr Vancomycin HCl 1 gm/ Sodium (Chloride) 250 mls @ 166 mls/hr IV ONETIME ONE Stop: 09/02/16 04:30 Last Admin: 09/02/16 02:44 Dose: 166 mls/hr Vancomycin HCl 0.75 gm/ Sodium (Chloride) 250 mls @ 166.667 mls/hr IV Q24H [facility] Last Admin: 09/02/16 05:05 Dose: Not Given Meropenem 1 gm/ Sodium (Chloride) 100 mls @ 200 mls/hr IV Q8H [facility] Meropenem 500 mg/ Sodium (Chloride) 100 mls @ 100 mls/hr IV Q12H [facility] Last Admin: 09/02/16 03:30 Dose: 100 mls/hr Methylprednisolone Sodium Succinate (Solu-Medrol) 125 mg IVPUSH ONETIME ONE Stop: 09/02/16 00:06 Last Admin: 09/02/16 00:14 Dose: 125 mg Methylprednisolone Sodium Succinate (Solu-Medrol) 125 mg IVPUSH Q8H MACIEJ Last Admin: 09/06/16 00:09 Dose: Not Given Polyethylene Glycol (Miralax) 17 gm PO ONETIME ONE Stop: 09/03/16 16:06 Last Admin: 09/03/16 17:43 Dose: Not Given - My Orders Last 24 Hours: My Active Orders 09/05/16 16:45 methylPREDNISolone Sod Succ [Solu-MEDROL] 40 mg IVPUSH Q8H - Plan Plan:: I was present with the resident during the history and exam. I discussed the case with the resident and agree with the findings and plan as documented in the resident's note
[2016-09-06] MEDS ORDERED: Fluticasone Propionate Nasal Spray 16 GM Bottle NASBOTH SCH (15:15)
[2016-09-06] MEDS: Acetaminophen 500 MG Tab PO PRN (15:38)
--- NOTE | 2016-09-06 16:27 | PCM.SN ---
- Free Text/Narrative Note: called for IV start. Patient gives verbal consent. Warm packs applied to hands bilaterally. Aseptic technique R) wrist 22 ga x 1 attempt. Abbocath secured with tape and dressing. RN notified.
[2016-09-06] MEDS ORDERED: Temazepam 15 MG Cap PO PRN (17:58)
[2016-09-06] MEDS ORDERED: Morphine 2 MG/ML Syringe IVPUSH ONE (17:58)
[2016-09-06] MEDS: atorvaSTATin 10 MG Tab PO SCH (21:40)
[2016-09-06] MEDS: Mirtazapine 15 MG Tab PO SCH (21:40)
[2016-09-06] MEDS: Cyclobenzaprine 5 MG Tab PO SCH (21:40)
[2016-09-06] MEDS: Metoprolol Tartrate 50 MG Tab PO SCH (21:44)
[2016-09-06] MEDS: Fluticasone Propionate Nasal Spray 16 GM Bottle NASBOTH SCH (21:57)
[2016-09-07] MEDS: Albuterol/Ipratropium 3.0-0.5 MG/3 ML Neb Soln NEB SCH ×3 (02:10→10:15)
[2016-09-07] MEDS: Meropenem 500 MG in Sodium Chloride 0.9% 100 ML IV SCH (04:18)
[2016-09-07] MEDS: Calcium Carbonate/Vitamin D3 1500 MG-400 Units Tab PO SCH (08:10)
[2016-09-07] MEDS: Clopidogrel 75 MG Tab PO SCH (08:10)
[2016-09-07] MEDS: methylPREDNISolone Sodium Succinate 40 MG/1 ML SDV IVPUSH SCH (08:10)
[2016-09-07] MEDS: Furosemide 20 MG Tab PO SCH (08:11)
[2016-09-07] MEDS: Docusate Sodium 100 MG Cap PO SCH (08:11)
[2016-09-07] MEDS: PARoxetine 20 MG Tab PO SCH (08:11)
[2016-09-07] MEDS: Ferrous Sulfate 325 MG Tab PO SCH (08:12)
[2016-09-07] MEDS: Heparin Sodium 5,000 Units/ML Vial SUBCUT SCH (08:15)
[2016-09-07] MEDS: Metoprolol Tartrate 50 MG Tab PO SCH (08:20)
[2016-09-07] MEDS ORDERED: Sodium Chloride 0.9% 500 ML IV SCH (08:30)
[2016-09-07] MEDS: Aspirin 81 MG Tab.Chew PO SCH (08:34)
[2016-09-07] MEDS: Polymyxin B/Trimethoprim 10 ML Bottle EYEBOTH SCH (09:21)
[2016-09-07] MEDS: Fluticasone Propionate Nasal Spray 16 GM Bottle NASBOTH SCH (09:22)
[2016-09-07] MEDS ORDERED: Benzonatate 100 MG Cap PO PRN (10:29)
[2016-09-07 11:39] VITALS: BP 157/103
--- NOTE | 2016-09-07 12:42 | PCM.DCSUM1 ---
<Geovanny Keane - Last Filed: 09/07/16 12:40> Discharge Summary - Hospital Course HPI Initial Comments: 85 yo female [facility] resident admitted 09/01/16 for dyspnea with pmh of significant pulmonary fibrosis (home O2 3L), COPD, CAD, NC with stents on plavix , CKD, hypertension and hyperlipidemia Brief History: Patient initially presented to ED from [place] secondary to cough and worsening shortness of breath. She has chronic dyspnea and is on home O2 at 3 L per nasal cannula. Patient did have a scheduled appointment with her PCP on 09/02/16 but felt she couldn't wait. Patient reported no sputum prodcution with cough, as well as no fever, chills, nausea, vomiting, chest pain , palpitations, or abdominal pain. She did receive the flu vaccination this year. In ED, CBC, CMP, and Troponin were unremarkable. BNP was elevated to 838 however on previous admissions BNP near 700-800. Influenza A and B were negative. CXR showed increased interstitial prminence likely representing interstitial lung diseas but grossly unchanged from previous studies. She was given tylenol, Solumedrol in the ED. Patient is allergic to Levaquin as well as amoxiciilin, azithromycing and cephalexin. - Discharge Data Discharge Date: 09/07/16 Discharge Disposition: Home, Self-Care 01 Condition: Good - Discharge Diagnosis/Problem(s) (1) CAD (coronary artery disease) SNOMED Code(s): 56978800 ICD Code: I25.10 - ATHSCL HEART DISEASE OF [place] CORONARY ARTERY W/O ANG PCTRS Status: Chronic Priority: Medium Current Visit: Yes Qualifiers: Coronary Disease-Associated Artery/Lesion type: unspecified vessel or lesion type [place] vs. transplanted heart: [place] heart Associated angina: angina presence unspecified Qualified Code(s): I25.10 - Atherosclerotic heart disease of [place] coronary artery without angina pectoris (2) HTN (hypertension) SNOMED Code(s): 48823750 ICD Code: I10 - ESSENTIAL (PRIMARY) HYPERTENSION Status: Chronic Priority : Medium Current Visit: Yes Qualifiers: Hypertension type: essential hypertension Qualified Code(s): I10 - Essential (primary) hypertension (3) COPD (chronic obstructive pulmonary disease) SNOMED Code(s): 26330119 ICD Code: J44.9 - CHRONIC OBSTRUCTIVE PULMONARY DISEASE, UNSPECIFIED Status : Acute Priority: High Current Visit: Yes Qualifiers: COPD type: COPD with acute exacerbation Qualified Code(s): J44.1 - Chronic obstructive pulmonary disease with (acute) exacerbation (4) Dyspnea SNOMED Code(s): 471999546 ICD Code: R06.00 - DYSPNEA, UNSPECIFIED Status: Acute Priority: High Current Visit: Yes Qualifiers: Dyspnea type: shortness of breath Qualified Code(s): R06.02 - Shortness of breath (5) Pulmonary fibrosis SNOMED Code(s): 02937505 ICD Code: J84.10 - PULMONARY FIBROSIS, UNSPECIFIED Status: Chronic Priority: High Current Visit: Yes - Patient Summary/Data Hospital Course: see below summary - Patient Instructions Diet: Heart Healthy Diet Activity: Rest and Relax Today Driving: Do Not Drive Showering/Bathing: May Shower Notify Provider of: Fever, Increased Pain, Nausea and/or Vomiting Other/Special Instructions: Follow-up with Dr. Fernandez for groin pain. Take medications as prescribed. Daily PT/OT for strenghening secondary to deconditioning. Home O2 to keep oxygen above 90%. Return to ED if worsening symptoms. - Discharge Plan Prescriptions/Med Rec: Benzonatate [Tessalon Perles] 200 mg PO Q8H PRN #21 cap PRN Reason: Cough Prednisone [IMW: predniSONE] 20 mg PO WITHBREAKFAST #30 tab Sulfamethoxazole/Trimethoprim [Bactrim Ds Tablet] 1 each PO BID #2 tablet Home Medications: Home Meds Ferrous Sulfate 325 mg PO BID 10/19/14 [History] Metoprolol Tartrate 25 mg PO BID 10/19/14 [History] atorvaSTATin [Lipitor] 10 mg PO BEDTIME 10/19/14 [History] Clopidogrel [Plavix] 75 mg PO DAILY 02/25/15 [History] PARoxetine [Paxil] 20 mg PO DAILY 02/25/15 [History] Acetaminophen [Tylenol] 650 mg PO Q4HR PRN MDD 3000 mg 05/25/15 [History] Calcium Citrate/Vitamin D3 [Calcium Citrate + D] 1 tab PO BIDMEALS 05/25/15 [ History] Multivitamin [Multivitamins] 1 cap PO DAILY 05/25/15 [History] Aspirin 81 mg PO DAILY 01/08/16 [History] Budesonide [Pulmicort Flexhaler] 2 puff INH DAILY 01/08/16 [History] Diazepam [Valium] 2 mg PO BID PRN 01/08/16 [History] Levalbuterol HCl [Xopenex] 1.25 mg NEB Q4H PRN 01/08/16 [History] Mirtazapine [Remeron] 30 mg PO BEDTIME 01/08/16 [History] Polymyxin B Sulf/Trimethoprim [Polytrim Eye Drops] 1 drop EYEBOTH DAILY [History] L Acidophil/B Lactis/B Longum [Florajen3] 460 mg PO DAILY 01/09/16 [History] Cyclobenzaprine [Flexeril] 5 mg PO BEDTIME #10 tablet 01/16/16 [Rx] Cyclobenzaprine [Flexeril] 5 mg PO BID PRN #10 tablet 01/16/16 [Rx] Loperamide HCl [Imodium A-D] 4 mg PO ONETIME PRN 05/08/16 [History] Mineral Oil/Petrolatum,White [Refresh P.M.] 1 applic EYEBOTH BEDTIME 05/09/16 [ History] Docusate Sodium [Colace] 100 mg PO DAILY 09/02/16 [History] Loperamide HCl [Imodium A-D] 2 mg PO QID PRN MDD 8 mg 09/02/16 [History] Melatonin 5 mg PO BEDTIME 09/02/16 [History] Benzonatate [Tessalon Perles] 200 mg PO Q8H PRN #21 cap 09/07/16 [Rx] Prednisone [IMW: predniSONE] 20 mg PO WITHBREAKFAST #30 tab 09/07/16 [Rx] Sulfamethoxazole/Trimethoprim [Bactrim Ds Tablet] 1 each PO BID #2 tablet [Rx] Referrals: Shahbaz Fernandez MD [Physician] - 09/20/16 3:00 pm Syed Santacruz MD [Primary Care Provider] - 09/13/16 (next [place] rounds) - Discharge Summary/Plan Comment DC Time >30 min.: Yes Discharge Summary/Plan Comment: 85 yo female [facility] resident admitted 09/01/16 for dyspnea with pmh of significant pulmonary fibrosis (home O2 3L), COPD, CAD, NC with stents on plavix , CKD, hypertension and hyperlipidemia Patient initially presented to ED from [place] secondary to cough and worsening shortness of breath. She has chronic dyspnea and is on home O2 at 3 L per nasal cannula. Patient did have a scheduled appointment with her PCP on but felt she couldn't wait. Patient reported no sputum prodcution with cough , as well as no fever, chills, nausea, vomiting, chest pain, palpitations, or abdominal pain. She did receive the flu vaccination this year. In ED, CBC, CMP, and Troponin were unremarkable. BNP was elevated to 838 however on previous admissions BNP near 700-800. Influenza A and B were negative. CXR showed increased interstitial prminence likely representing interstitial lung diseas but grossly unchanged from previous studies. She was given tylenol, Solumedrol in the ED. Patient is allergic to Levaquin as well as amoxiciilin, azithromycing and cephalexin. Patient was admitted for dyspnea most likely secondary to COPD exacerbation and started on emperic antibiotics for HCAP from [facility]. 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 Patient was treated with Meropenim and Vancomycin for 6 days. She had one low grade fever on day of admission but no further. She was also treated with Solumedrol and duonebs. Patient continued to have respiratory difficulty and needed increased oxygen supplementation to 5 L/nasal canula. On day of discharge patient requested to be sent back to [place]. She did have worsening renal function and her lasix was discontinued. This also could have been from the high dose steroids patient had been recieving. I would recommend checking BUN/Cr to make sure she does not go into renal failure. Patient was discharged back to [place] with a prescription for prednisone taper, tessalon pearls, and bactrim for 1 day for complete 7 day treatment of pneumonia which thought to be unlikely but covered emperically secondary to her poor lung function. Patient did have increased anxiety during her stay which was most likely due to her sisters recent passing as well as 2 other family members passing. She may wish to go to comfort care when assessed at [place]. I did also schedule the patient for an appointment with Dr. Fernandez for some labial pain she had reported during her stay. This was a chronic issue that had been bothering her for some time. She was instructed to return to ED if she had any worsening symptoms. - Patient Data Vitals - Most Recent: Last Vital Signs Temp 36.8 C 09/07/16 11:38 Pulse 85 09/07/16 11:38 Resp 20 09/07/16 11:38 BP 157/103 H 09/07/16 11:38 Pulse Ox 91 L 09/07/16 11:38 Weight - Most Recent: 56.3 kg I&O - Last 24 hours: Intake & Output 09/06/16 09/07/16 09/07/16 22:59 06:59 14:59 Intake Total 200 750 100 Output Total 800 750 Balance -600 0 100 Lab Results - Last 24 hrs: Laboratory Results - last 24 hr 09/07/16 09/07/16 09/07/16 Range/Units 05:55 05:55 11:49 WBC 14.05 H (4.0-11.0) K/uL RBC 3.07 L (4.30-5.90) M/uL Hgb 9.4 L (12.0-16.0) g/dL Hct 30.1 L (36.0-46.0) % MCV 98.0 (80.0-98.0) fL MCH 30.6 (27.0-32.0) pg MCHC 31.2 (31.0-37.0) g/dL RDW Std Deviation 53.8 (28.0-62.0) fl RDW Coeff of Masood 15 (11.0-15.0) % Plt Count 174 (150-400) K/uL MPV 12.70 H (7.40-12.00) fL Add Manual Diff YES Neutrophils % (Manual) 76 (48.0-80.0) % Band Neutrophils % 7 % Lymphocytes % (Manual) 14 L (16.0-40.0) % Monocytes % (Manual) 3 (0.0-15.0) % Nucleated RBC % 0.0 /100WBC Absolute Seg Neuts 10.7 Band Neutrophils # 1.0 Lymphocytes # (Manual) 2.0 Monocytes # (Manual) 0.4 Nucleated RBCs # 0 K/uL Sodium 142 142 (136-146) mmol/L Potassium 4.8 4.5 (3.5-5.1) mmol/L Chloride 109 106 (98-110) mmol/L Carbon Dioxide 22 22 (21-31) mmol/L BUN 73 H 74 H (6.0-23.0) mg/dL Creatinine 1.8 H 1.9 H (0.6-1.5) mg/dL Est Cr Clr Drug Dosing 18.52 17.55 mL/min Estimated GFR (MDRD) 26.6 25.0 ml/min Glucose 141 H 196 H (60-110) mg/dL Calcium 8.6 L 8.8 (8.8-10.8) mg/dL Med Orders - Current: Current Medications Acetaminophen (Tylenol Extra Strength) 500 mg PO Q4H PRN PRN Reason: Pain/Fever Last Admin: 09/06/16 15:38 Dose: 500 mg Albuterol/Ipratropium (Duoneb 3.0-0.5 Mg/3 Ml) 3 ml NEB Q4HRRT [facility] Last Admin: 09/07/16 10:15 Dose: 3 ml Alprazolam (Xanax) 0.25 mg PO Q4H PRN PRN Reason: Anxiety Last Admin: 09/06/16 17:28 Dose: 0.25 mg Aspirin (Aspirin) 81 mg PO DAILY [facility] Last Admin: 09/07/16 08:34 Dose: 81 mg Atorvastatin Calcium (Lipitor) 10 mg PO BEDTIME [facility] Last Admin: 09/06/16 21:40 Dose: 10 mg Benzonatate (Tessalon Perles) 200 mg PO Q8H PRN PRN Reason: Cough Last Admin: 09/07/16 10:36 Dose: 200 mg Calcium Carbonate (Caltrate 600+D 1500 Mg-400 Units) 0.5 tab PO BIDMEALS [facility] Last Admin: 09/07/16 08:10 Dose: 0.5 tab Clopidogrel Bisulfate (Plavix) 75 mg PO DAILY [facility] Last Admin: 09/07/16 08:10 Dose: 75 mg Cyclobenzaprine HCl (Flexeril) 5 mg PO BEDTIME [facility] Last Admin: 09/06/16 21:40 Dose: 5 mg Cyclobenzaprine HCl (Flexeril) 5 mg PO BID PRN PRN Reason: muscle spasms/back Docusate Sodium (Colace) 100 mg PO DAILY [facility] Last Admin: 09/07/16 08:11 Dose: 100 mg Ferrous Sulfate (Ferrous Sulfate) 325 mg PO BID [facility] Last Admin: 09/07/16 08:12 Dose: 325 mg Fluticasone Propionate (Flonase) 0 gm NASBOTH BID [facility] Last Admin: 09/07/16 09:22 Dose: 1 spray Furosemide (Lasix) 20 mg PO DAILY [facility] Last Admin: 09/07/16 08:11 Dose: 20 mg Heparin Sodium (Porcine) (Heparin Sodium) 5,000 units SUBCUT Q12HR [facility] Last Admin: 09/07/16 08:15 Dose: 5,000 units Vancomycin HCl 0.75 gm/ Sodium (Chloride) 250 mls @ 166.667 mls/hr IV Q24H [facility] Last Infusion: 09/07/16 04:16 Dose: Infused Meropenem 500 mg/ Sodium (Chloride) 100 mls @ 100 mls/hr IV Q12H [facility] Last Infusion: 09/07/16 05:40 Dose: Infused Sodium Chloride (Normal Saline) 500 mls @ 999 mls/hr IV .BOLUS [facility] Last Infusion: 09/07/16 08:43 Dose: 150 mls/hr Levalbuterol HCl (Xopenex) 1.25 mg NEB Q4H PRN PRN Reason: Cough Last Admin: 09/03/16 23:07 Dose: 1.25 mg Loperamide HCl (Imodium) 2 mg PO QID PRN PRN Reason: Diarrhea Methylprednisolone Sodium Succinate (Solu-Medrol) 40 mg IVPUSH Q8H [facility] Last Admin: 09/07/16 08:10 Dose: 40 mg Metoprolol Tartrate (Lopressor) 50 mg PO Q12HR [facility] Last Admin: 09/07/16 08:20 Dose: 50 mg Mirtazapine (Remeron) 30 mg PO BEDTIME [facility] Last Admin: 09/06/16 21:40 Dose: 30 mg Oxymetazoline HCl (Afrin Original 0.05% Nasal [place]) 0 ml GARY BID PRN PRN Reason: Congestion Last Admin: 09/07/16 08:10 Dose: 2 sprays Paroxetine HCl (Paxil) 20 mg PO DAILY [facility] Last Admin: 09/07/16 08:11 Dose: 20 mg Polymyxin/Trimethoprim Sulfate (Polytrim Ophth Soln) 0 ml EYEBOTH DAILY [facility] Last Admin: 09/07/16 09:21 Dose: 1 drop Sodium Chloride (Saline Flush) 10 ml FLUSH ASDIRECTED PRN PRN Reason: Keep Vein Open Sodium Chloride (Saline Flush) 2.5 ml FLUSH ASDIRECTED PRN PRN Reason: Keep Vein Open Temazepam (Restoril) 15 mg PO BEDTIME PRN PRN Reason: Insomnia Last Admin: 09/06/16 22:02 Dose: 15 mg Vancomycin HCl (Pharmacy To Dose - Vancomycin) 1 dose .XX ASDIRECTED [facility] Discontinued Medications Acetaminophen (Tylenol) 1,000 mg PO NOW ONE Stop: 09/02/16 00:31 Last Admin: 09/02/16 00:36 Dose: 1,000 mg Albuterol/Ipratropium (Duoneb 3.0-0.5 Mg/3 Ml) Confirm Administered Dose 3 ml .ROUTE .STK-MED ONE Stop: 09/01/16 22:49 Last Admin: 09/01/16 22:45 Dose: 3 ml Alprazolam (Xanax) 0.25 mg PO ONETIME ONE Stop: 09/04/16 17:42 Last Admin: 09/04/16 17:53 Dose: 0.25 mg Belladonna Alkaloids/Opium (B & O Supprettes No. 15a) 1 supp RECTAL ONETIME ONE Stop: 09/03/16 21:06 Last Admin: 09/03/16 21:00 Dose: 1 supp Calcium Citrate (Calcitrate + Vit D Cap (315 Mg/250 Units)) 1 each PO BIDMEALS [facility] Last Admin: 09/03/16 12:51 Dose: Not Given Diazepam (Valium) 2 mg PO BID PRN PRN Reason: agitation/restlessness Last Admin: 09/03/16 22:30 Dose: 2 mg Fluticasone Propionate (Flonase) 50 gm NASBOTH BID [facility] Levofloxacin/Dextrose 750 mg/ (Premix) 150 mls @ 100 mls/hr IV ONETIME ONE Stop: 09/02/16 01:33 Last Admin: 09/02/16 00:17 Dose: 100 mls/hr Azithromycin 500 mg/ Sodium (Chloride) 250 mls @ 250 mls/hr IV Q24H [facility] Last Admin: 09/02/16 02:10 Dose: 250 mls/hr Vancomycin HCl 1 gm/ Sodium (Chloride) 250 mls @ 166 mls/hr IV ONETIME ONE Stop: 09/02/16 04:30 Last Admin: 09/02/16 02:44 Dose: 166 mls/hr Vancomycin HCl 0.75 gm/ Sodium (Chloride) 250 mls @ 166.667 mls/hr IV Q24H [facility] Last Admin: 09/02/16 05:05 Dose: Not Given Meropenem 1 gm/ Sodium (Chloride) 100 mls @ 200 mls/hr IV Q8H [facility] Meropenem 500 mg/ Sodium (Chloride) 100 mls @ 100 mls/hr IV Q12H [facility] Last Admin: 09/02/16 03:30 Dose: 100 mls/hr Methylprednisolone Sodium Succinate (Solu-Medrol) 125 mg IVPUSH ONETIME ONE Stop: 09/02/16 00:06 Last Admin: 09/02/16 00:14 Dose: 125 mg Methylprednisolone Sodium Succinate (Solu-Medrol) 125 mg IVPUSH Q8H [facility] Last Admin: 09/06/16 00:09 Dose: Not Given Metoprolol Tartrate (Lopressor) 25 mg PO BID [facility] Last Admin: 09/06/16 08:13 Dose: 25 mg Morphine Sulfate (Morphine) 1 mg IVPUSH ONETIME ONE Stop: 09/06/16 17:59 Last Admin: 09/06/16 18:26 Dose: 1 mg Polyethylene Glycol (Miralax) 17 gm PO ONETIME ONE Stop: 09/03/16 16:06 Last Admin: 09/03/16 17:43 Dose: Not Given *Q Meaningful Use (DIS) - VTE *Q VTE Criteria *Q: - Stroke *Q Stroke Criteria *Q: - AMI *Q AMI Criteria *Q: <Hayden Sawant - Last Filed: 09/07/16 13:06> Discharge Summary - Discharge Summary/Plan Comment Discharge Summary/Plan Comment: I was present with the resident during the history and exam. I discussed the case with the resident and agree with the findings an plan as documented in the resident's note. - Patient Data Vitals - Most Recent: Last Vital Signs Temp 36.8 C 09/07/16 11:38 Pulse 85 09/07/16 11:38 Resp 20 09/07/16 11:38 BP 157/103 H 09/07/16 11:38 Pulse Ox 91 L 09/07/16 11:38 I&O - Last 24 hours: Intake & Output 09/06/16 09/07/1609/07/17 22:59 06:59 14:59 Intake Total 200 750 100 Output Total 800 750 Balance -600 0 100 Lab Results - Last 24 hrs: Laboratory Results - last 24 hr 09/07/16 09/07/16 09/07/16 Range/Units 05:55 05:55 11:49 WBC 14.05 H (4.0-11.0) K/uL RBC 3.07 L (4.30-5.90) M/uL Hgb 9.4 L (12.0-16.0) g/dL Hct 30.1 L (36.0-46.0) % MCV 98.0 (80.0-98.0) fL MCH 30.6 (27.0-32.0) pg MCHC 31.2 (31.0-37.0) g/dL RDW Std Deviation 53.8 (28.0-62.0) fl RDW Coeff of Masood 15 (11.0-15.0) % Plt Count 174 (150-400) K/uL MPV 12.70 H (7.40-12.00) fL Add Manual Diff YES Neutrophils % (Manual) 76 (48.0-80.0) % Band Neutrophils % 7 % Lymphocytes % (Manual) 14 L (16.0-40.0) % Monocytes % (Manual) 3 (0.0-15.0) % Nucleated RBC % 0.0 /100WBC Absolute Seg Neuts 10.7 Band Neutrophils # 1.0 Lymphocytes # (Manual) 2.0 Monocytes # (Manual) 0.4 Nucleated RBCs # 0 K/uL Sodium 142 142 (136-146) mmol/L Potassium 4.8 4.5 (3.5-5.1) mmol/L Chloride 109 106 (98-110) mmol/L Carbon Dioxide 22 22 (21-31) mmol/L BUN 73 H 74 H (6.0-23.0) mg/dL Creatinine 1.8 H 1.9 H (0.6-1.5) mg/dL Est Cr Clr Drug Dosing 18.52 17.55 mL/min Estimated GFR (MDRD) 26.6 25.0 ml/min Glucose 141 H 196 H (60-110) mg/dL Calcium 8.6 L 8.8 (8.8-10.8) mg/dL Med Orders - Current: Current Medications Acetaminophen (Tylenol Extra Strength) 500 mg PO Q4H PRN PRN Reason: Pain/Fever Last Admin: 09/06/16 15:38 Dose: 500 mg Albuterol/Ipratropium (Duoneb 3.0-0.5 Mg/3 Ml) 3 ml NEB Q4HRRT [facility] Last Admin: 09/07/16 10:15 Dose: 3 ml Alprazolam (Xanax) 0.25 mg PO Q4H PRN PRN Reason: Anxiety Last Admin: 09/06/16 17:28 Dose: 0.25 mg Aspirin (Aspirin) 81 mg PO DAILY [facility] Last Admin: 09/07/16 08:34 Dose: 81 mg Atorvastatin Calcium (Lipitor) 10 mg PO BEDTIME [facility] Last Admin: 09/06/16 21:40 Dose: 10 mg Benzonatate (Tessalon Perles) 200 mg PO Q8H PRN PRN Reason: Cough Last Admin: 09/07/16 10:36 Dose: 200 mg Calcium Carbonate (Caltrate 600+D 1500 Mg-400 Units) 0.5 tab PO BIDMEALS [facility] Last Admin: 09/07/16 08:10 Dose: 0.5 tab Clopidogrel Bisulfate (Plavix) 75 mg PO DAILY [facility] Last Admin: 09/07/16 08:10 Dose: 75 mg Cyclobenzaprine HCl (Flexeril) 5 mg PO BEDTIME [facility] Last Admin: 09/06/16 21:40 Dose: 5 mg Cyclobenzaprine HCl (Flexeril) 5 mg PO BID PRN PRN Reason: muscle spasms/back Docusate Sodium (Colace) 100 mg PO DAILY [facility] Last Admin: 09/07/16 08:11 Dose: 100 mg Ferrous Sulfate (Ferrous Sulfate) 325 mg PO BID [facility] Last Admin: 09/07/16 08:12 Dose: 325 mg Fluticasone Propionate (Flonase) 0 gm NASBOTH BID [facility] Last Admin: 09/07/16 09:22 Dose: 1 spray Furosemide (Lasix) 20 mg PO DAILY [facility] Last Admin: 09/07/16 08:11 Dose: 20 mg Heparin Sodium (Porcine) (Heparin Sodium) 5,000 units SUBCUT Q12HR [facility] Last Admin: 09/07/16 08:15 Dose: 5,000 units Vancomycin HCl 0.75 gm/ Sodium (Chloride) 250 mls @ 166.667 mls/hr IV Q24H [facility] Last Infusion: 09/07/16 04:16 Dose: Infused Meropenem 500 mg/ Sodium (Chloride) 100 mls @ 100 mls/hr IV Q12H [facility] Last Infusion: 09/07/16 05:40 Dose: Infused Sodium Chloride (Normal Saline) 500 mls @ 999 mls/hr IV .BOLUS [facility] Last Infusion: 09/07/16 08:43 Dose: 150 mls/hr Levalbuterol HCl (Xopenex) 1.25 mg NEB Q4H PRN PRN Reason: Cough Last Admin: 09/03/16 23:07 Dose: 1.25 mg Loperamide HCl (Imodium) 2 mg PO QID PRN PRN Reason: Diarrhea Methylprednisolone Sodium Succinate (Solu-Medrol) 40 mg IVPUSH Q8H [facility] Last Admin: 09/07/16 08:10 Dose: 40 mg Metoprolol Tartrate (Lopressor) 50 mg PO Q12HR [facility] Last Admin: 09/07/16 08:20 Dose: 50 mg Mirtazapine (Remeron) 30 mg PO BEDTIME [facility] Last Admin: 09/06/16 21:40 Dose: 30 mg Oxymetazoline HCl (Afrin Original 0.05% Nasal [place]) 0 ml GARY BID PRN PRN Reason: Congestion Last Admin: 09/07/16 08:10 Dose: 2 sprays Paroxetine HCl (Paxil) 20 mg PO DAILY [facility] Last Admin: 09/07/16 08:11 Dose: 20 mg Polymyxin/Trimethoprim Sulfate (Polytrim Ophth Soln) 0 ml EYEBOTH DAILY [facility] Last Admin: 09/07/16 09:21 Dose: 1 drop Sodium Chloride (Saline Flush) 10 ml FLUSH ASDIRECTED PRN PRN Reason: Keep Vein Open Sodium Chloride (Saline Flush) 2.5 ml FLUSH ASDIRECTED PRN PRN Reason: Keep Vein Open Temazepam (Restoril) 15 mg PO BEDTIME PRN PRN Reason: Insomnia Last Admin: 09/06/16 22:02 Dose: 15 mg Vancomycin HCl (Pharmacy To Dose - Vancomycin) 1 dose .XX ASDIRECTED [facility] Discontinued Medications Acetaminophen (Tylenol) 1,000 mg PO NOW ONE Stop: 09/02/16 00:31 Last Admin: 09/02/16 00:36 Dose: 1,000 mg Albuterol/Ipratropium (Duoneb 3.0-0.5 Mg/3 Ml) Confirm Administered Dose 3 ml .ROUTE .STK-MED ONE Stop: 09/01/16 22:49 Last Admin: 09/01/16 22:45 Dose: 3 ml Alprazolam (Xanax) 0.25 mg PO ONETIME ONE Stop: 09/04/16 17:42 Last Admin: 09/04/16 17:53 Dose: 0.25 mg Belladonna Alkaloids/Opium (B & O Supprettes No. 15a) 1 supp RECTAL ONETIME ONE Stop: 09/03/16 21:06 Last Admin: 09/03/16 21:00 Dose: 1 supp Calcium Citrate (Calcitrate + Vit D Cap (315 Mg/250 Units)) 1 each PO BIDMEALS [facility] Last Admin: 09/03/16 12:51 Dose: Not Given Diazepam (Valium) 2 mg PO BID PRN PRN Reason: agitation/restlessness Last Admin: 09/03/16 22:30 Dose: 2 mg Fluticasone Propionate (Flonase) 50 gm NASBOTH BID [facility] Levofloxacin/Dextrose 750 mg/ (Premix) 150 mls @ 100 mls/hr IV ONETIME ONE Stop: 09/02/16 01:33 Last Admin: 09/02/16 00:17 Dose: 100 mls/hr Azithromycin 500 mg/ Sodium (Chloride) 250 mls @ 250 mls/hr IV Q24H [facility] Last Admin: 09/02/16 02:10 Dose: 250 mls/hr Vancomycin HCl 1 gm/ Sodium (Chloride) 250 mls @ 166 mls/hr IV ONETIME ONE Stop: 09/02/16 04:30 Last Admin: 09/02/16 02:44 Dose: 166 mls/hr Vancomycin HCl 0.75 gm/ Sodium (Chloride) 250 mls @ 166.667 mls/hr IV Q24H [facility] Last Admin: 09/02/16 05:05 Dose: Not Given Meropenem 1 gm/ Sodium (Chloride) 100 mls @ 200 mls/hr IV Q8H [facility] Meropenem 500 mg/ Sodium (Chloride) 100 mls @ 100 mls/hr IV Q12H [facility] Last Admin: 09/02/16 03:30 Dose: 100 mls/hr Methylprednisolone Sodium Succinate (Solu-Medrol) 125 mg IVPUSH ONETIME ONE Stop: 09/02/16 00:06 Last Admin: 09/02/16 00:14 Dose: 125 mg Methylprednisolone Sodium Succinate (Solu-Medrol) 125 mg IVPUSH Q8H [facility] Last Admin: 09/06/16 00:09 Dose: Not Given Metoprolol Tartrate (Lopressor) 25 mg PO BID [facility] Last Admin: 09/06/16 08:13 Dose: 25 mg Morphine Sulfate (Morphine) 1 mg IVPUSH ONETIME ONE Stop: 09/06/16 17:59 Last Admin: 09/06/16 18:26 Dose: 1 mg Polyethylene Glycol (Miralax) 17 gm PO ONETIME ONE Stop: 09/03/16 16:06 Last Admin: 09/03/16 17:43 Dose: Not Given *Q Meaningful Use (DIS) - VTE *Q VTE Criteria *Q: - Stroke *Q Stroke Criteria *Q: - AMI *Q AMI Criteria *Q:
== END 2016-09-07 12:22 | DRG 197 ==
LOC: MW.ED 21:15 → MW.MS 09-02 00:13
PROVIDERS: ADMIT Family Medicine; ATTEND Family Medicine
DX: J84.10 Pulmonary fibrosis, unspecified (principal); J18.9 Pneumonia, unspecified organism; J44.1 Chronic obstructive pulmonary disease with (acute) exacerbation; N39.0 Urinary tract infection, site not specified; R06.00 Dyspnea, unspecified; I25.10 Atherosclerotic heart disease of native coronary artery without angina pectoris; I10 Essential (primary) hypertension; J44.9 Chronic obstructive pulmonary disease, unspecified; R50.9 Fever, unspecified; N94.89 Other specified conditions associated with female genital organs and menstrual cycle; Z85.51 Personal history of malignant neoplasm of bladder; M06.9 Rheumatoid arthritis, unspecified; M62.81 Muscle weakness (generalized); R10.30 Lower abdominal pain, unspecified; Z86.73 Personal history of transient ischemic attack (TIA), and cerebral infarction without residual deficits; Z88.0 Allergy status to penicillin; Z88.1 Allergy status to other antibiotic agents; I49.9 Cardiac arrhythmia, unspecified; Z95.5 Presence of coronary angioplasty implant and graft; Z99.81 Dependence on supplemental oxygen; I50.9 Heart failure, unspecified; I12.9 Hypertensive chronic kidney disease with stage 1 through stage 4 chronic kidney disease, or unspecified chronic kidney disease; N18.3 Chronic kidney disease, stage 3 (moderate); I25.2 Old myocardial infarction; F41.8 Other specified anxiety disorders; E78.5 Hyperlipidemia, unspecified; Z88.8 Allergy status to other drugs, medicaments and biological substances; Z93.3 Colostomy status; Z79.899 Other long term (current) drug therapy; Z79.01 Long term (current) use of anticoagulants
CPT/HCPCS: 36410; 36415; 71020; 71020-26; 80048; 80053; 80202; 81001; 82272; 83735; 83880; 84484; 85025; 87086; 87804; 93005; 94640; 96365; 96375; 99284; 99285-25; A9270-GY; J0456; J1644; J1956; J2185; J2270; J2920; J2930; J3370; J7030; J7040; J7050; J7612-GY

== ENCOUNTER 2016-10-05 20:45 | Inpatient (IN) | payer MEDICARE, BC ==
--- NOTE | 2016-10-05 20:55 | EDM.PDOC ---
ED HPI GENERAL MEDICAL PROBLEM - General Chief Complaint: Fever Stated Complaint: SICK Time Seen by Provider: 10/05/16 20:55 Source of Information: Reports: Patient - History of Present Illness INITIAL COMMENTS - FREE TEXT/NARRATIVE: HISTORY AND PHYSICAL: History of present illness: [] Patient presents from [facility] with history of fever, she is been treated for a urinary tract infection on the last week with Macrobid, temperature measured at 101 today at the [facility] she did receive Tylenol prior to arrival. As had some shortness of breath along with various aches and pains No nausea vomiting chest pain headache dizziness or palpitation no bowel or urine symptoms Review of systems: As per history of present illness and below otherwise all systems reviewed and negative. Past medical history: As per history of present illness and as reviewed below otherwise noncontributory. Surgical history: As per history of present illness and as reviewed below otherwise noncontributory. Social history: No reported history of drug or alcohol abuse. Family history: As per history of present illness and as reviewed below otherwise noncontributory. Physical exam: HEENT: Atraumatic, normocephalic, pupils reactive, negative for conjunctival pallor or scleral icterus, mucous membranes moist, throat clear, neck supple, nontender, trachea midline. Lungs: Clear to auscultation, breath sounds equal bilaterally, chest nontender. Heart: S1S2, regular, negative for clicks, rubs, or JVD. Abdomen: Soft, nondistended, nontender. Negative for masses or hepatosplenomegaly. Negative for costovertebral tenderness. Pelvis: Stable nontender. Urostomy site noted Genitourinary: Deferred. Rectal: Deferred. Extremities: Atraumatic, negative for cords or calf pain. Neurovascular unremarkable. Neuro: Awake, alert, oriented. Cranial nerves II through XII unremarkable. Cerebellum unremarkable. Motor and sensory unremarkable throughout. Exam nonfocal. Diagnostics: [] Lab as below EKG Chest one view Blood cultures x2 Therapeutics: [] Vancomycin 1 g IV Clindamycin 300 mg IV Impression: [] Fever Pneumonia Chronic history of baseline Definitive disposition and diagnosis as appropriate pending reevaluation and review of above. right groin area Pain Score (Numeric/FACES): 10 - Related Data Allergies Allergy/AdvReac Type Severity Reaction Status Date / Time amoxicillin Allergy Cannot Verified 10/05/16 21:00 Remember azithromycin [From Zithromax] Allergy Cannot Verified 10/05/16 21:00 Remember cephalexin monohydrate Allergy Anaphylactic Verified 10/05/16 21:00 [From Keflex] Shock codeine Allergy Cannot Verified 10/05/16 21:00 Remember gentamicin Allergy Cannot Verified 10/05/16 21:00 Remember Iodine and Iodide Containing Allergy Cannot Verified 10/05/16 21:00 Produc Remember levofloxacin [From Levaquin] Allergy Redness Verified 10/05/16 21:00 Penicillins Allergy Cannot Verified 10/05/16 21:00 Remember Home Meds: Home Meds Ferrous Sulfate 325 mg PO BID 10/19/14 [History] Metoprolol Tartrate 25 mg PO BID 10/19/14 [History] atorvaSTATin [Lipitor] 10 mg PO BEDTIME 10/19/14 [History] Clopidogrel [Plavix] 75 mg PO DAILY 02/25/15 [History] PARoxetine [Paxil] 20 mg PO DAILY 02/25/15 [History] Acetaminophen [Tylenol] 650 mg PO Q4HR PRN MDD 3000 mg 05/25/15 [History] Calcium Citrate/Vitamin D3 [Calcium Citrate + D] 1 tab PO BIDMEALS 05/25/15 [ History] Multivitamin [Multivitamins] 1 cap PO DAILY 05/25/15 [History] Aspirin 81 mg PO DAILY 01/08/16 [History] Budesonide [Pulmicort Flexhaler] 2 puff INH DAILY 01/08/16 [History] Levalbuterol HCl [Xopenex] 1.25 mg NEB Q4H PRN 01/08/16 [History] Mirtazapine [Remeron] 30 mg PO BEDTIME 01/08/16 [History] L Acidophil/B Lactis/B Longum [Florajen3] 460 mg PO DAILY 01/09/16 [History] Loperamide HCl [Imodium A-D] 4 mg PO ONETIME PRN 05/08/16 [History] Mineral Oil/Petrolatum,White [Refresh P.M.] 1 applic EYEBOTH BEDTIME 05/09/16 [ History] Docusate Sodium [Colace] 100 mg PO DAILY 09/02/16 [History] Loperamide HCl [Imodium A-D] 2 mg PO QID PRN MDD 8 mg 09/02/16 [History] Melatonin 5 mg PO BEDTIME 09/02/16 [History] Benzonatate [Tessalon Perles] 200 mg PO Q8H PRN #21 cap 09/07/16 [Rx] LORazepam [Ativan] 1 mg PO ASDIRECTED PRN 10/05/16 [History] Nitrofurantoin Monohyd/M-Cryst [Macrobid 100 mg Capsule] 100 mg PO BID 10/05/16 [History] Past Medical History HEENT History: Reports: Impaired vision, Other (see below) Other HEENT History: unspecified visual loss Cardiovascular History: Reports: Arrhythmia, CAD, Heart Failure, Hypertension, [place], Prior cardiac arrest, Other (see below) Other Cardiovascular History: hypoxemia, tachycardia unspecified, STEMI Respiratory History: Reports: COPD, Pneumonia, recurrent, Pulmonary fibrosis, SOB, Other (see below) Other Respiratory History: interstitial pulmonary diseas, 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 Gastrointestinal History: Reports: None Other Gastrointestinal History: hernia Genitourinary History: Reports: Chronic renal insuffiency, UTI, recurrent, Other (see below) Other Genitourinary History: with history of bladder cancer-malignant neoplasm, stage 3 chronic kidney disease [employer] C History: Reports: None Musculoskeletal History: Reports: Back pain, chronic, Osteoarthritis, Other ( see below) Other Musculoskeletal History: generalized muscle weakness, rheumatoid arthritis , dorsalgia, difficluty walking and lack of coordination Neurological History: Reports: TIA, Other (see below) Other Neuro History: altered mental staus, 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 Psychiatric History: Reports: Anxiety, Depression Endocrine/Metabolic History: Reports: None, Other (see below) Other Endocrine/Metabolic History: hyperlipidemia, hyperkalemia Hematologic History: Reports: None Immunologic History: Reports: None Oncologic (Cancer) History: Reports: Other (see below) Other Oncologic History: history of malignant neoplasm of bladder Dermatologic History: Reports: None - Infectious Disease History Infectious Disease History: Reports: Chicken pox, Measles, MRSA, Mumps, Other ( see below) Other Infectious Disease History: 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 - Past Surgical History Head Surgeries/Procedures: Reports: None Cardiovascular Surgical History: Reports: Other (see below) Other Cardiovascular Surgeries/Procedures: coronary angioplastyimplant and graft GI Surgical History: Reports: Other (see below) Other GI Surgeries/Procedures: bowle resection Female Surgical History: Reports: Ureteral stent, Other (see below) Other Female Surgeries/Procedures: urostomy Endocrine Surgical History: Reports: None Neurological Surgical History: Reports: None Social & Family History - Family History Family Medical History: Noncontributory HEENT: Reports: Hearing impairment Cardiac: Reports: Heart failure, High cholesterol, Hypertension OBGYN: Reports: Musculoskeletal: Reports: Arthritis, Osteoarthritis, Osteoporosis - Tobacco Use Smoking Status *Q: Never Smoker Second Hand Smoke Exposure: No - Caffeine Use Caffeine Use: Reports: Coffee - Alcohol Use Days Per Week of Alcohol Use: 0 - Recreational Drug Use Recreational Drug Use: No Drug Use in Last 12 Months: No ED ROS GENERAL - Review of Systems Review Of Systems: ROS reveals no pertinent complaints other than HPI. ED EXAM, GENERAL - Physical Exam Exam: See Below Course - Vital Signs Last Recorded V/S: Last Vital Signs Temp 37.0 C 10/05/16 20:52 Pulse 106 H 10/05/16 20:52 Resp 18 10/05/16 20:52 BP 117/82 10/05/16 20:52 Pulse Ox 91 L 10/05/16 20:52 - Orders/Labs/Meds Orders: Active Orders 24 hr Category Date Time Status Admission Status [Patient Status] [ADT] Stat ADT 10/05/16 21:53 Ordered EKG Documentation Completion [RC] STAT Care 10/05/16 20:54 Active Chest 1V Frontal [CR] Stat Exams 10/05/16 20:54 Taken CULTURE BLOOD [BC] Stat Lab 10/05/16 21:12 Received CULTURE BLOOD [BC] Stat Lab 10/05/16 21:26 Received CULTURE URINE [RM] Stat Lab 10/05/16 21:08 Received Clindamycin Phosphate in D5W [Cleocin in D5W] 300 mg Med 10/05/16 21:44 Active Premix Bag 1 bag IV ONETIME Sodium Chloride 0.9% [Normal Saline] 1,000 ml Med 10/05/16 21:45 Active IV STAT Vancomycin [Vancocin] 1 gm Med 10/05/16 21:44 Active Sodium Chloride 0.9% [Normal Saline] 250 ml IV ONETIME Blood Culture x2 Reflex Set [OM.PC] Stat Oth 10/05/16 20:54 Ordered Medication Orders Clindamycin Phosphate 300 mg/ (Premix) 50 mls @ 150 mls/hr IV ONETIME ONE Stop: 10/05/16 22:03 Sodium Chloride (Normal Saline) 1,000 mls @ 125 mls/hr IV STAT MACIEJ Vancomycin HCl 1 gm/ Sodium (Chloride) 250 mls @ 250 mls/hr IV ONETIME ONE Stop: 10/05/16 22:43 Labs: Laboratory Tests 10/05/16 10/05/16 10/05/16 Range/Units 21:08 21:12 21:12 WBC 8.70 (4.0-11.0) K/uL RBC 3.05 L (4.30-5.90) M/uL Hgb 9.5 L (12.0-16.0) g/dL Hct 31.4 L (36.0-46.0) % MCV 103.0 H (80.0-98.0) fL MCH 31.1 (27.0-32.0) pg MCHC 30.3 L (31.0-37.0) g/dL RDW Std Deviation 60.5 (28.0-62.0) fl RDW Coeff of Masood 16 H (11.0-15.0) % Plt Count 264 (150-400) K/uL MPV 11.70 (7.40-12.00) fL Neut % (Auto) 73.1 (48.0-80.0) % Lymph % (Auto) 13.6 L (16.0-40.0) % Comal % (Auto) 11.5 (0.0-15.0) % Eos % (Auto) 1.3 (0.0-7.0) % Baso % (Auto) 0.5 (0.0-1.5) % Neut # (Auto) 6.4 H (1.4-5.7) K/uL Lymph # (Auto) 1.2 (0.6-2.4) K/uL Comal # (Auto) 1.0 H (0.0-0.8) K/uL Eos # (Auto) 0.1 (0.0-0.7) K/uL Baso # (Auto) 0.0 (0.0-0.1) K/uL Nucleated RBC % 0.4 /100WBC Nucleated RBCs # 0 K/uL Lactate (0.20-2.00) mmol/L Sodium 138 (136-146) mmol/L Potassium 5.4 H (3.5-5.1) mmol/L Chloride 106 (98-110) mmol/L Carbon Dioxide 20 L (21-31) mmol/L BUN 33 H (6.0-23.0) mg/dL Creatinine 1.6 H (0.6-1.5) mg/dL Est Cr Clr Drug Dosing 19.79 mL/min Estimated GFR (MDRD) 30.5 ml/min Glucose 119 H (60-110) mg/dL Calcium 9.3 (8.8-10.8) mg/dL Total Bilirubin 0.3 (0.1-1.5) mg/dL AST 21 (5-40) IU/L ALT 13 (8-54) IU/L Alkaline Phosphatase 85 (40-150) Troponin I (0.0-0.29) NG/ML Total Protein 6.9 (6.0-8.0) g/dL Albumin 3.2 L (3.4-4.8) g/dL Globulin 3.7 H (2.0-3.5) g/dL Albumin/Globulin Ratio 0.9 L (1.3-2.8) Urine Color YELLOW Urine Appearance SLT CLOUDY Urine pH 6.5 (5.0-8.0) Ur Specific Deane 1.010 (1.001-1.035) Urine Protein 30 (NEGATIVE) mg/dL Urine Glucose (UA) NEGATIVE (NEGATIVE) mg/dL Urine Ketones NEGATIVE (NEGATIVE) mg/dL Urine Occult Blood TRACE-INTACT (NEGATIVE) Urine Nitrite POSITIVE H (NEGATIVE) Urine Bilirubin NEGATIVE (NEGATIVE) Urine Urobilinogen 0.2 (<2.0) EU/dL Ur Leukocyte Esterase NEGATIVE (NEGATIVE) Urine RBC 1-2 (0-2/HPF) Urine WBC 5-10 (0-5/HPF) Ur Epithelial Cells RARE (NONE-FEW) Urine Bacteria 1+ H (NEGATIVE) 10/05/16 10/05/16 Range/Units 21:12 21:12 WBC (4.0-11.0) K/uL RBC (4.30-5.90) M/uL Hgb (12.0-16.0) g/dL Hct (36.0-46.0) % MCV (80.0-98.0) fL MCH (27.0-32.0) pg MCHC (31.0-37.0) g/dL RDW Std Deviation (28.0-62.0) fl RDW Coeff of Masood (11.0-15.0) % Plt Count (150-400) K/uL MPV (7.40-12.00) fL Neut % (Auto) (48.0-80.0) % Lymph % (Auto) (16.0-40.0) % Comal % (Auto) (0.0-15.0) % Eos % (Auto) (0.0-7.0) % Baso % (Auto) (0.0-1.5) % Neut # (Auto) (1.4-5.7) K/uL Lymph # (Auto) (0.6-2.4) K/uL Comal # (Auto) (0.0-0.8) K/uL Eos # (Auto) (0.0-0.7) K/uL Baso # (Auto) (0.0-0.1) K/uL Nucleated RBC % /100WBC Nucleated RBCs # K/uL Lactate 1.1 (0.20-2.00) mmol/L Sodium (136-146) mmol/L Potassium (3.5-5.1) mmol/L Chloride (98-110) mmol/L Carbon Dioxide (21-31) mmol/L BUN (6.0-23.0) mg/dL Creatinine (0.6-1.5) mg/dL Est Cr Clr Drug Dosing mL/min Estimated GFR (MDRD) ml/min Glucose (60-110) mg/dL Calcium (8.8-10.8) mg/dL Total Bilirubin (0.1-1.5) mg/dL AST (5-40) IU/L ALT (8-54) IU/L Alkaline Phosphatase (40-150) Troponin I < 0.10 (0.0-0.29) NG/ML Total Protein (6.0-8.0) g/dL Albumin (3.4-4.8) g/dL Globulin (2.0-3.5) g/dL Albumin/Globulin Ratio (1.3-2.8) Urine Color Urine Appearance Urine pH (5.0-8.0) Ur Specific Deane (1.001-1.035) Urine Protein (NEGATIVE) mg/dL Urine Glucose (UA) (NEGATIVE) mg/dL Urine Ketones (NEGATIVE) mg/dL Urine Occult Blood (NEGATIVE) Urine Nitrite (NEGATIVE) Urine Bilirubin (NEGATIVE) Urine Urobilinogen (<2.0) EU/dL Ur Leukocyte Esterase (NEGATIVE) Urine RBC (0-2/HPF) Urine WBC (0-5/HPF) Ur Epithelial Cells (NONE-FEW) Urine Bacteria (NEGATIVE) Meds: Medications Generic Name Dose Route Start Last Admin Trade Name Freq PRN Reason Stop Dose Admin Clindamycin Phosphate 300 mg/ 50 mls @ 150 mls/hr 10/05/16 21:44 Premix IV 10/05/16 22:03 ONETIME ONE Sodium Chloride 1,000 mls @ 125 mls/hr 10/05/16 21:45 Normal Saline IV STAT MACIEJ Vancomycin HCl 1 gm/ Sodium 250 mls @ 250 mls/hr 10/05/16 21:44 Chloride IV 10/05/16 22:43 ONETIME ONE Departure - Departure Time of Disposition: 21:55 Disposition: Admitted As Inpatient 64 Condition: poor Clinical Impression: Pneumonia Qualifiers: Pneumonia type: due to unspecified organism Laterality: right Lung location: upper lobe of lung Qualified Code(s): J18.9 - Pneumonia, unspecified organism Referrals: PCP,None [Primary Care Provider] - Forms: ED Department Discharge - My Orders Last 24 Hours: My Active Orders 10/05/16 20:54 EKG Documentation Completion [RC] STAT Chest 1V Frontal [CR] Stat Blood Culture x2 Reflex Set [OM.PC] Stat 10/05/16 21:08 CULTURE URINE [RM] Stat 10/05/16 21:12 CULTURE BLOOD [BC] Stat 10/05/16 21:26 CULTURE BLOOD [BC] Stat 10/05/16 21:44 Clindamycin Phosphate in D5W [Cleocin in D5W] 300 mg Premix Bag 1 bag IV ONETIME Vancomycin [Vancocin] 1 gm Sodium Chloride 0.9% [Normal Saline] 250 ml IV ONETIME 10/05/16 21:45 Sodium Chloride 0.9% [Normal Saline] 1,000 ml IV STAT 10/05/16 21:53 Admission Status [Patient Status] [ADT] Stat - Assessment/Plan Last 24 Hours: My Active Orders 10/05/16 20:54 EKG Documentation Completion [RC] STAT Chest 1V Frontal [CR] Stat Blood Culture x2 Reflex Set [OM.PC] Stat 10/05/16 21:08 CULTURE URINE [RM] Stat 10/05/16 21:12 CULTURE BLOOD [BC] Stat 10/05/16 21:26 CULTURE BLOOD [BC] Stat 10/05/16 21:44 Clindamycin Phosphate in D5W [Cleocin in D5W] 300 mg Premix Bag 1 bag IV ONETIME Vancomycin [Vancocin] 1 gm Sodium Chloride 0.9% [Normal Saline] 250 ml IV ONETIME 10/05/16 21:45 Sodium Chloride 0.9% [Normal Saline] 1,000 ml IV STAT 10/05/16 21:53 Admission Status [Patient Status] [ADT] Stat
[2016-10-05] MEDS ORDERED: Clindamycin Phosphate in D5W 300 MG in Premix Bag 1 BAG IV ONE ×2 (21:44)
[2016-10-05] MEDS ORDERED: Sodium Chloride 0.9% 1,000 ML IV SCH (21:45)
--- NOTE | 2016-10-05 23:17 | PCM.HP ---
H&P History of Present Illness - General Date of Service: 10/05/16 Admit Problem/Dx: Admission Diagnosis/Problem Admission Diagnosis/Problem Pneumonia Source of Information: Patient, correction records History Limitations: Reports: No limitations - History of Present Illness Initial Comments - Free Text/Narative: 85 y o woman with history of pulmonary fibrosis residing in [facility] sent in fror fever. Pr reports she vomited after supper, says she is coughing Onset of Symptoms: Reports: today right groin area Pain Score (Numeric/FACES): 10 - Related Data Allergies/Adverse Reactions: Allergies Allergy/AdvReac Type Severity Reaction Status Date / Time amoxicillin Allergy Cannot Verified 10/05/16 21:00 Remember azithromycin [From Zithromax] Allergy Cannot Verified 10/05/16 21:00 Remember cephalexin monohydrate Allergy Anaphylactic Verified 10/05/16 21:00 [From Keflex] Shock codeine Allergy Cannot Verified 10/05/16 21:00 Remember gentamicin Allergy Cannot Verified 10/05/16 21:00 Remember Iodine and Iodide Containing Allergy Cannot Verified 10/05/16 21:00 Produc Remember levofloxacin [From Levaquin] Allergy Redness Verified 10/05/16 21:00 Penicillins Allergy Cannot Verified 10/05/16 21:00 Remember Home Medications: Home Meds Ferrous Sulfate 325 mg PO BID 10/19/14 [History] Metoprolol Tartrate 25 mg PO BID 10/19/14 [History] atorvaSTATin [Lipitor] 10 mg PO BEDTIME 10/19/14 [History] Clopidogrel [Plavix] 75 mg PO DAILY 02/25/15 [History] PARoxetine [Paxil] 20 mg PO DAILY 02/25/15 [History] Acetaminophen [Tylenol] 650 mg PO Q4HR PRN MDD 3000 mg 05/25/15 [History] Calcium Citrate/Vitamin D3 [Calcium Citrate + D] 1 tab PO BIDMEALS 05/25/15 [ History] Multivitamin [Multivitamins] 1 cap PO DAILY 05/25/15 [History] Aspirin 81 mg PO DAILY 01/08/16 [History] Budesonide [Pulmicort Flexhaler] 2 puff INH DAILY 01/08/16 [History] Levalbuterol HCl [Xopenex] 1.25 mg NEB Q4H PRN 01/08/16 [History] Mirtazapine [Remeron] 30 mg PO BEDTIME 01/08/16 [History] L Acidophil/B Lactis/B Longum [Florajen3] 460 mg PO DAILY 01/09/16 [History] Loperamide HCl [Imodium A-D] 4 mg PO ONETIME PRN 05/08/16 [History] Mineral Oil/Petrolatum,White [Refresh P.M.] 1 applic EYEBOTH BEDTIME 05/09/16 [ History] Docusate Sodium [Colace] 100 mg PO DAILY 09/02/16 [History] Loperamide HCl [Imodium A-D] 2 mg PO QID PRN MDD 8 mg 09/02/16 [History] Melatonin 5 mg PO BEDTIME 09/02/16 [History] Benzonatate [Tessalon Perles] 200 mg PO Q8H PRN #21 cap 09/07/16 [Rx] LORazepam [Ativan] 1 mg PO ASDIRECTED PRN 10/05/16 [History] Nitrofurantoin Monohyd/M-Cryst [Macrobid 100 mg Capsule] 100 mg PO BID 10/05/16 [History] Past Medical History HEENT History: Reports: Impaired vision, Other (see below) Other HEENT History: unspecified visual loss Cardiovascular History: Reports: Arrhythmia, CAD, Heart Failure, Hypertension, [place], Prior cardiac arrest, Other (see below) Other Cardiovascular History: 08/2016hypoxemia, tachycardia unspecified, STEMI 2016 Respiratory History: Reports: COPD, Pneumonia, recurrent, Pulmonary fibrosis, SOB, Other (see below) Other Respiratory History: interstitial pulmonary diseas, 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 Gastrointestinal History: Reports: None Other Gastrointestinal History: hernia Genitourinary History: Reports: Chronic renal insuffiency, UTI, recurrent, Other (see below) Other Genitourinary History: with history of bladder cancer-malignant neoplasm, stage 3 chronic kidney disease PEDIATRIC NP History: Reports: None Musculoskeletal History: Reports: Back pain, chronic, Osteoarthritis, Other ( see below) Other Musculoskeletal History: generalized muscle weakness, rheumatoid arthritis , dorsalgia, difficluty walking and lack of coordination Neurological History: Reports: TIA, Other (see below) Other Neuro History: altered mental staus, 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 Psychiatric History: Reports: Anxiety, Depression Endocrine/Metabolic History: Reports: None, Other (see below) Other Endocrine/Metabolic History: hyperlipidemia, hyperkalemia Hematologic History: Reports: None Immunologic History: Reports: None Oncologic (Cancer) History: Reports: Other (see below) Other Oncologic History: history of malignant neoplasm of bladder Dermatologic History: Reports: None - Infectious Disease History Infectious Disease History: Reports: Chicken pox, Measles, MRSA, Mumps, Other ( see below) Other Infectious Disease History: 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 - Past Surgical History Head Surgeries/Procedures: Reports: None Cardiovascular Surgical History: Reports: Other (see below) Other Cardiovascular Surgeries/Procedures: coronary angioplastyimplant and graft GI Surgical History: Reports: Other (see below) Other GI Surgeries/Procedures: bowle resection Female Surgical History: Reports: Ureteral stent, Other (see below) Other Female Surgeries/Procedures: urostomy Endocrine Surgical History: Reports: None Neurological Surgical History: Reports: None Social & Family History - Family History Family Medical History: Noncontributory HEENT: Reports: Hearing impairment Cardiac: Reports: Heart failure, High cholesterol, Hypertension OBGYN: Reports: Musculoskeletal: Reports: Arthritis, Osteoarthritis, Osteoporosis - Tobacco Use Smoking Status *Q: Never Smoker Second Hand Smoke Exposure: No - Caffeine Use Caffeine Use: Reports: Coffee - Alcohol Use Days Per Week of Alcohol Use: 0 - Recreational Drug Use Recreational Drug Use: No Drug Use in Last 12 Months: No - Living Situation & Occupation Living situation: Reports: , assisted living H&P Review of Systems - Review of Systems: Review Of Systems: See Below General: Reports: malaise, weakness (has started to use WC rather than walker for longer stretches) Gastrointestinal: Reports: Anorexia (doesn't like menu), Vomiting Genitourinary: Reports: other (has urostomy) Exam - Exam Exam: See Below - Vital Signs Vital Signs: Last Vital Signs Temp 37.0 C 10/05/16 20:52 Pulse 97 10/05/16 22:35 Resp 16 10/05/16 22:35 BP 129/90 10/05/16 22:35 Pulse Ox 96 10/05/16 22:35 Weight: 50.6 kg - Exam General: alert, cooperative Lungs: Decreased breath sounds, Rales (coarse on Left,) Cardiovascular: regular rate Abdomen: soft (Female) Exam: Deferred Rectal (Female) Exam: Deferred Extremities: normal inspection - Patient Data Result Diagrams: 10/05/16 21:12 10/05/16 21:12 *Q Meaningful Use (ADM) - VTE *Q VTE Criteria *Q: - Stroke *Q Stroke Criteria *Q: - AMI *Q AMI Criteria *Q: Problem List Initiated/Reviewed/Updated: Yes Orders Last 24hrs: Medication Orders Sodium Chloride (Normal Saline) 1,000 mls @ 125 mls/hr IV STAT MACIEJ Last Admin: 10/05/16 21:56 Dose: 125 mls/hr Assessment/Plan Comment:: history vomiting, fever and apparent new R sided infiltrate consistent with aspiration pneumonia will treat as such keeping in mind pts multiple antibiotic intolerances history pulmonary fibrosis CAD, multiple interventions, recent STEMI
[2016-10-05] MEDS ORDERED: LOPERAMIDE PO PRN (23:31)
[2016-10-05] MEDS: Acetaminophen 325 MG Tab PO PRN (23:59)
[2016-10-05] MEDS: LORazepam 1 MG Tab PO PRN (23:59)
[2016-10-06] MEDS: Enoxaparin 30 MG/0.3 ML Syringe SUBCUT SCH
[2016-10-06] MEDS: Acetaminophen 325 MG Tab PO PRN (04:42)
[2016-10-06] MEDS: LORazepam 1 MG Tab PO PRN ×2 (06:53→16:23)
[2016-10-06] MEDS ORDERED: Albuterol/Ipratropium 3.0-0.5 MG/3 ML Neb Soln ONE (08:42)
[2016-10-06] MEDS: Clindamycin Phosphate in D5W 300 MG in Premix Bag 1 BAG IV SCH ×4 (08:51→16:25)
[2016-10-06] MEDS ORDERED: PARoxetine 20 MG Tab PO SCH (09:00)
[2016-10-06] MEDS ORDERED: Nitrofurantoin Monohydrate/Macrocrystalline 100 MG Cap PO SCH (09:00)
[2016-10-06] MEDS: Albuterol/Ipratropium 3.0-0.5 MG/3 ML Neb Soln NEB SCH ×4 (09:13→21:34)
[2016-10-06] MEDS ORDERED: Loperamide 2 MG Cap PO PRN (10:24)
[2016-10-06] MEDS: Aspirin 81 MG Tab.Chew PO SCH (10:27)
[2016-10-06] MEDS: Clopidogrel 75 MG Tab PO SCH (10:27)
[2016-10-06] MEDS: Docusate Sodium 100 MG Cap PO SCH (10:28)
[2016-10-06] MEDS: Metoprolol Tartrate 25 MG Tab PO SCH ×2 (10:28→20:13)
--- NOTE | 2016-10-06 11:08 | CR ---
EXAM DATE: 10/05/16 PATIENT'S AGE: 85 Patient: VICTORINO JEREZ Facility: [place], [place] Site . Site : [id number] Study: XRay Chest [id number]/2/[id number] 9:20:33 PM Ordering Physician: Shakira Dorman Final Report: INDICATION: fever TECHNIQUE: Chest 1 view COMPARISON: September 01, 2016. FINDINGS: Cardiovascular and mediastinum: Indistinct central vascularity. Stable tortuosity descending thoracic aorta. Mediastinum is within normal limits. Lungs and pleural space: Persistent multifocal consolidations. Trace fluid tracking along the minor fissure. No pneumothorax. Bones and soft tissues: Degenerative changes. IMPRESSION: Pulmonary edema. Superimposed infectious etiology cannot be excluded. Dictated by Zaheer Castellon MD @ 10/05/2016 9:31:46 PM Dictated by: Zaheer Castellon MD @ 10/05/2016 21:32:44 (Electronic Signature) Report Signed by Proxy. [facility] HOSPITALAngela
[2016-10-06] MEDS ORDERED: Albuterol/Ipratropium 3.0-0.5 MG/3 ML Neb Soln NEB SCH (12:00)
[2016-10-06] MEDS ORDERED: Furosemide 40 MG/4 ML VIAL IVPUSH ONE (13:03)
--- NOTE | 2016-10-06 17:03 | PCM.PN ---
<Wilner Johnson - Last Filed: 10/06/16 16:57> - General Info Date of Service: 10/06/16 Admission Dx/Problem (Free Text): Admission Diagnosis/Problem Admission Diagnosis/Problem CHF Subjective Update: Patient notes that she is on 3 L of oxygen via nasal cannula when at home. It was noted by nursing this morning that she was requiring much more oxygen to maintain her saturation greater than 90% and that at times she was dropping into the mid 70s. Initial admission was pneumonia but after looking at the official read of the chest x-ray it notes that the patient most likely has pulmonary edema and not pneumonia. I discontinued the patient's IV fluids and gave her a dose of Lasix 40 mg IV and ordered scheduled Lasix 40 mg IV twice a day. With this the patient's respiratory rate improved from mid 30s to 20. She also appears to be breathing much easier. She states that overall she is just feeling "lousy". She denies any chest pain, palpitations, abdominal pain, nausea , vomiting. Functional Status: Reports: pain controlled, ambulating, urinating (Yadav catheter) - Review of Systems General: Reports: Weakness, Fatigue HEENT: Reports: no symptoms Pulmonary: Reports: shortness of breath, cough. Denies: hemoptysis Cardiovascular: Reports: Dyspnea on Exertion Gastrointestinal: Reports: No symptoms Genitourinary: Reports: no symptoms Musculoskeletal: Reports: no symptoms Skin: Reports: no symptoms Neurological: Reports: No Symptoms Psychiatric: Reports: no symptoms - Patient Data Vitals - most recent: Last Vital Signs Temp 97.1 F 10/06/16 15:56 Pulse 94 10/06/16 15:56 Resp 20 10/06/16 15:56 BP 153/92 H 10/06/16 15:56 Pulse Ox 93 L 10/06/16 12:15 Weight - most recent: 58.5 kg I&O - last 24 hours: Intake & Output 10/06/16 10/06/16 10/06/16 06:59 14:59 22:59 Intake Total 550 Output Total 450 Balance 100 Lab Results last 24 hrs: Laboratory Results - last 24 hr 10/06/16 10/06/16 10/06/16 Range/Units 05:00 05:00 05:00 WBC 7.96 (4.0-11.0) K/uL RBC 2.95 L (4.30-5.90) M/uL Hgb 9.1 L (12.0-16.0) g/dL Hct 30.5 L (36.0-46.0) % MCV 103.4 H (80.0-98.0) fL MCH 30.8 (27.0-32.0) pg MCHC 29.8 L (31.0-37.0) g/dL RDW Std Deviation 61.6 (28.0-62.0) fl RDW Coeff of Masood 17 H (11.0-15.0) % Plt Count 276 (150-400) K/uL MPV 12.10 H (7.40-12.00) fL Nucleated RBC % 0.0 /100WBC Nucleated RBCs # 0 K/uL Sodium 137 (136-146) mmol/L Potassium 4.9 (3.5-5.1) mmol/L Chloride 107 (98-110) mmol/L Carbon Dioxide 17 L (21-31) mmol/L BUN 36 H (6.0-23.0) mg/dL Creatinine 1.5 (0.6-1.5) mg/dL Est Cr Clr Drug Dosing 22.23 mL/min Estimated GFR (MDRD) 32.8 ml/min Glucose 159 H (60-110) mg/dL Calcium 8.6 L (8.8-10.8) mg/dL Troponin I < 0.10 (0.0-0.29) NG/ML B-Natriuretic Peptide (<100) PG/ML 10/06/16 Range/Units 05:00 WBC (4.0-11.0) K/uL RBC (4.30-5.90) M/uL Hgb (12.0-16.0) g/dL Hct (36.0-46.0) % MCV (80.0-98.0) fL MCH (27.0-32.0) pg MCHC (31.0-37.0) g/dL RDW Std Deviation (28.0-62.0) fl RDW Coeff of Masood (11.0-15.0) % Plt Count (150-400) K/uL MPV (7.40-12.00) fL Nucleated RBC % /100WBC Nucleated RBCs # K/uL Sodium (136-146) mmol/L Potassium (3.5-5.1) mmol/L Chloride (98-110) mmol/L Carbon Dioxide (21-31) mmol/L BUN (6.0-23.0) mg/dL Creatinine (0.6-1.5) mg/dL Est Cr Clr Drug Dosing mL/min Estimated GFR (MDRD) ml/min Glucose (60-110) mg/dL Calcium (8.8-10.8) mg/dL Troponin I (0.0-0.29) NG/ML B-Natriuretic Peptide > 3306 H (<100) PG/ML Med Orders - Current: Current Medications Acetaminophen (Tylenol) 650 mg PO Q4HR PRN PRN Reason: Pain/Fever Last Admin: 10/06/16 04:42 Dose: 650 mg Albuterol/Ipratropium (Duoneb 3.0-0.5 Mg/3 Ml) 3 ml NEB Q4HRRT [facility] Last Admin: 10/06/16 14:50 Dose: 3 ml Aspirin (Aspirin) 81 mg PO DAILY [facility] Last Admin: 10/06/16 10:27 Dose: 81 mg Atorvastatin Calcium (Lipitor) 10 mg PO BEDTIME [facility] Benzonatate (Tessalon Perles) 200 mg PO Q8H PRN PRN Reason: Cough Budesonide (Pulmicort) 0.5 mg NEB BIDRT [facility] Clopidogrel Bisulfate (Plavix) 75 mg PO DAILY [facility] Last Admin: 10/06/16 10:27 Dose: 75 mg Docusate Sodium (Colace) 100 mg PO DAILY [facility] Last Admin: 10/06/16 10:28 Dose: 100 mg Enoxaparin Sodium (Lovenox) 30 mg SUBCUT Q24H [facility] Last Admin: 10/06/16 00:00 Dose: 30 mg Furosemide (Lasix) 40 mg IVPUSH BID [facility] Clindamycin Phosphate 300 mg/ (Premix) 50 mls @ 150 mls/hr IV Q8H [facility] Last Admin: 10/06/16 16:25 Dose: 150 mls/hr Vancomycin HCl 750 mg/ Sodium (Chloride) 250 mls @ 250 mls/hr IV Q24H [facility] Last Admin: 10/06/16 10:22 Dose: 250 mls/hr Loperamide HCl (Imodium) 4 mg PO ONETIME PRN PRN Reason: Diarrhea Lorazepam (Ativan) 1 mg PO ASDIRECTED PRN PRN Reason: Anxiety Last Admin: 10/06/16 16:23 Dose: 1 mg Metoprolol Tartrate (Lopressor) 25 mg PO BID [facility] Last Admin: 10/06/16 10:28 Dose: 25 mg Mirtazapine (Remeron) 30 mg PO BEDTIME [facility] Paroxetine HCl (Paxil) 10 mg PO DAILY [facility] Vancomycin HCl (Pharmacy To Dose - Vancomycin) 1 dose .XX ASDIRECTED [facility] Discontinued Medications Albuterol/Ipratropium (Duoneb 3.0-0.5 Mg/3 Ml) 3 ml NEB Q6HRRT [facility] Albuterol/Ipratropium (Duoneb 3.0-0.5 Mg/3 Ml) Confirm Administered Dose 3 ml .ROUTE .STK-MED ONE Stop: 10/06/16 08:43 Last Admin: 10/06/16 08:44 Dose: 3 ml Furosemide (Lasix) 40 mg IVPUSH NOW ONE Stop: 10/06/16 13:04 Last Admin: 10/06/16 13:09 Dose: 40 mg Clindamycin Phosphate 300 mg/ (Premix) 50 mls @ 150 mls/hr IV ONETIME ONE Stop: 10/05/16 22:03 Last Admin: 10/05/16 21:57 Dose: 150 mls/hr Sodium Chloride (Normal Saline) 1,000 mls @ 50 mls/hr IV STAT [facility] Last Admin: 10/05/16 21:56 Dose: 125 mls/hr Vancomycin HCl 1 gm/ Sodium (Chloride) 250 mls @ 250 mls/hr IV ONETIME ONE Stop: 10/05/16 22:43 Last Admin: 10/05/16 21:59 Dose: 250 mls/hr Non-Formulary Medication (Loperamide) 4 mg PO ONETIME PRN PRN Reason: Diarrhea Paroxetine HCl (Paxil) 20 mg PO DAILY [facility] Last Admin: 10/06/16 10:35 Dose: Not Given Pulmicort Flexhaler 0 each INH BID [facility] Last Admin: 10/06/16 10:35 Dose: Not Given - Exam Quality Assessment: urine catheter, DVT prophylaxis (scd's) General: alert, oriented, cooperative, mild distress Lungs: Clear to auscultation, Other (Patient has mild increased work of breathing. Respiratory rate is elevated into the mid 30s. Lungs do sound clear to auscultation but I do suspect an underlying CHF exacerbation according to the chest x-ray.) Cardiovascular: Regular Rate, Regular Rhythm Abdomen: bowel sounds present, soft, no tenderness, no distension Extremities: no edema, no calf tenderness Peripheral Pulses: 2+: radial (L), radial (R) Skin: warm, dry, intact Neurological: no new focal deficit Psy/Mental Status: alert, other (Patient appears very tired this morning.) - Problem List & Annotations (1) CHF (congestive heart failure) SNOMED Code(s): 20342050 Code(s): I50.9 - HEART FAILURE, UNSPECIFIED Status: Acute Current Visit: Yes - Problem List Review Problem List Initiated/Reviewed/Updated: Yes - My Orders Last 24 Hours: My Active Orders 10/06/16 10:00 Albuterol/Ipratropium [DuoNeb 3.0-0.5 MG/3 ML] 3 ml NEB Q4HRRT 10/06/16 13:13 Echo Comp wo Cont [US] Routine 10/06/16 21:00 Furosemide [Lasix] 40 mg IVPUSH BID 10/06/16 Dinner Low Sodium [Sodium Restricted Diet] [DIET] - Plan Plan:: 85-year-old female admitted with dyspnea. #1. Congestive heart failure: -BNP is elevated at 3306. Looking back over previous admissions, her BNP at its highest was 838 in August of 2016. BNP has been getting progressively higher. -IV fluids were stopped and the patient was given a one-time dose of Lasix 40 mg IV. She has also been started on Lasix 40 mg IV twice a day. We will have to monitor her kidney function as she does have chronic kidney disease. In looking back over previous admissions, her BUN looks quite good compared to previous readings. We will get daily BMPs. -I do not see a previous echocardiogram the patient's chart. Echocardiogram has been ordered with results pending. -Patient is tolerating oral intake. #2. UTI: -Patient's urinalysis shows positive nitrite and +1 bacteria. She recently finished a course of Macrobid for a urinary tract infection. -Urine cultures are pending. -Patient currently on clindamycin 300 mg every 8 hours IV. #3. Pneumonia: -Chest x-ray did show pulmonary edema with a superimposed infectious etiology they cannot be excluded. -Patient currently on clindamycin 800 mg IV every 8 hours. Patient has multiple allergies to antibiotics. <Hayden Sawant - Last Filed: 10/06/16 18:16> - Patient Data Vitals - most recent: Last Vital Signs Temp 36.2 C 10/06/16 15:56 Pulse 94 10/06/16 15:56 Resp 20 10/06/16 15:56 BP 153/92 H 10/06/16 15:56 Pulse Ox 93 L 10/06/16 12:15 I&O - last 24 hours: Intake & Output 10/06/16 10/06/16 10/06/16 06:59 14:59 22:59 Intake Total 550 Output Total 450 Balance 100 Lab Results last 24 hrs: Laboratory Results - last 24 hr 10/06/16 10/06/16 10/06/16 Range/Units 05:00 05:00 05:00 WBC 7.96 (4.0-11.0) K/uL RBC 2.95 L (4.30-5.90) M/uL Hgb 9.1 L (12.0-16.0) g/dL Hct 30.5 L (36.0-46.0) % MCV 103.4 H (80.0-98.0) fL MCH 30.8 (27.0-32.0) pg MCHC 29.8 L (31.0-37.0) g/dL RDW Std Deviation 61.6 (28.0-62.0) fl RDW Coeff of Masood 17 H (11.0-15.0) % Plt Count 276 (150-400) K/uL MPV 12.10 H (7.40-12.00) fL Nucleated RBC % 0.0 /100WBC Nucleated RBCs # 0 K/uL Sodium 137 (136-146) mmol/L Potassium 4.9 (3.5-5.1) mmol/L Chloride 107 (98-110) mmol/L Carbon Dioxide 17 L (21-31) mmol/L BUN 36 H (6.0-23.0) mg/dL Creatinine 1.5 (0.6-1.5) mg/dL Est Cr Clr Drug Dosing 22.23 mL/min Estimated GFR (MDRD) 32.8 ml/min Glucose 159 H (60-110) mg/dL Calcium 8.6 L (8.8-10.8) mg/dL Troponin I < 0.10 (0.0-0.29) NG/ML B-Natriuretic Peptide (<100) PG/ML 10/06/16 Range/Units 05:00 WBC (4.0-11.0) K/uL RBC (4.30-5.90) M/uL Hgb (12.0-16.0) g/dL Hct (36.0-46.0) % MCV (80.0-98.0) fL MCH (27.0-32.0) pg MCHC (31.0-37.0) g/dL RDW Std Deviation (28.0-62.0) fl RDW Coeff of Masood (11.0-15.0) % Plt Count (150-400) K/uL MPV (7.40-12.00) fL Nucleated RBC % /100WBC Nucleated RBCs # K/uL Sodium (136-146) mmol/L Potassium (3.5-5.1) mmol/L Chloride (98-110) mmol/L Carbon Dioxide (21-31) mmol/L BUN (6.0-23.0) mg/dL Creatinine (0.6-1.5) mg/dL Est Cr Clr Drug Dosing mL/min Estimated GFR (MDRD) ml/min Glucose (60-110) mg/dL Calcium (8.8-10.8) mg/dL Troponin I (0.0-0.29) NG/ML B-Natriuretic Peptide > 3306 H (<100) PG/ML Med Orders - Current: Current Medications Acetaminophen (Tylenol) 650 mg PO Q4HR PRN PRN Reason: Pain/Fever Last Admin: 10/06/16 04:42 Dose: 650 mg Albuterol/Ipratropium (Duoneb 3.0-0.5 Mg/3 Ml) 3 ml NEB Q4HRRT [facility] Last Admin: 10/06/16 14:50 Dose: 3 ml Aspirin (Aspirin) 81 mg PO DAILY [facility] Last Admin: 10/06/16 10:27 Dose: 81 mg Atorvastatin Calcium (Lipitor) 10 mg PO BEDTIME [facility] Benzonatate (Tessalon Perles) 200 mg PO Q8H PRN PRN Reason: Cough Budesonide (Pulmicort) 0.5 mg NEB BIDRT [facility] Clopidogrel Bisulfate (Plavix) 75 mg PO DAILY [facility] Last Admin: 10/06/16 10:27 Dose: 75 mg Docusate Sodium (Colace) 100 mg PO DAILY [facility] Last Admin: 10/06/16 10:28 Dose: 100 mg Enoxaparin Sodium (Lovenox) 30 mg SUBCUT Q24H [facility] Last Admin: 10/06/16 00:00 Dose: 30 mg Furosemide (Lasix) 40 mg IVPUSH BID [facility] Clindamycin Phosphate 300 mg/ (Premix) 50 mls @ 150 mls/hr IV Q8H [facility] Last Admin: 10/06/16 16:25 Dose: 150 mls/hr Vancomycin HCl 750 mg/ Sodium (Chloride) 250 mls @ 250 mls/hr IV Q24H [facility] Last Admin: 10/06/16 10:22 Dose: 250 mls/hr Loperamide HCl (Imodium) 4 mg PO ONETIME PRN PRN Reason: Diarrhea Lorazepam (Ativan) 1 mg PO ASDIRECTED PRN PRN Reason: Anxiety Last Admin: 10/06/16 16:23 Dose: 1 mg Metoprolol Tartrate (Lopressor) 25 mg PO BID [facility] Last Admin: 10/06/16 10:28 Dose: 25 mg Mirtazapine (Remeron) 30 mg PO BEDTIME [facility] Paroxetine HCl (Paxil) 10 mg PO DAILY [facility] Vancomycin HCl (Pharmacy To Dose - Vancomycin) 1 dose .XX ASDIRECTED [facility] Discontinued Medications Albuterol/Ipratropium (Duoneb 3.0-0.5 Mg/3 Ml) 3 ml NEB Q6HRRT [facility] Albuterol/Ipratropium (Duoneb 3.0-0.5 Mg/3 Ml) Confirm Administered Dose 3 ml .ROUTE .STK-MED ONE Stop: 10/06/16 08:43 Last Admin: 10/06/16 08:44 Dose: 3 ml Furosemide (Lasix) 40 mg IVPUSH NOW ONE Stop: 10/06/16 13:04 Last Admin: 10/06/16 13:09 Dose: 40 mg Clindamycin Phosphate 300 mg/ (Premix) 50 mls @ 150 mls/hr IV ONETIME ONE Stop: 10/05/16 22:03 Last Admin: 10/05/16 21:57 Dose: 150 mls/hr Sodium Chloride (Normal Saline) 1,000 mls @ 50 mls/hr IV STAT [facility] Last Admin: 10/05/16 21:56 Dose: 125 mls/hr Vancomycin HCl 1 gm/ Sodium (Chloride) 250 mls @ 250 mls/hr IV ONETIME ONE Stop: 10/05/16 22:43 Last Admin: 10/05/16 21:59 Dose: 250 mls/hr Non-Formulary Medication (Loperamide) 4 mg PO ONETIME PRN PRN Reason: Diarrhea Paroxetine HCl (Paxil) 20 mg PO DAILY [facility] Last Admin: 10/06/16 10:35 Dose: Not Given Pulmicort Flexhaler 0 each INH BID [facility] Last Admin: 10/06/16 10:35 Dose: Not Given - My Orders Last 24 Hours: My Active Orders 10/05/16 23:29 Oxygen Therapy [RC] PRN Vital Signs [RC] Q4H Resuscitation Status Routine 10/05/16 23:31 Acetaminophen [Tylenol] 650 mg PO Q4HR PRN Benzonatate [Tessalon Perles] 200 mg PO Q8H PRN LORazepam [Ativan] 1 mg PO ASDIRECTED PRN 10/06/16 00:00 Enoxaparin [Lovenox] 30 mg SUBCUT Q24H 10/06/16 08:34 RT Aerosol Therapy [RC] ASDIRECTED 10/06/16 08:45 Clindamycin Phosphate in D5W [Cleocin in D5W] 300 mg Premix Bag 1 bag IV Q8H Vancomycin Pharmacy to Dose [Pharmacy to Dose - Vancomycin] 1 dose .XX ASDIRECTED 10/06/16 09:00 Aspirin 81 mg PO DAILY Clopidogrel [Plavix] 75 mg PO DAILY D[facility] Sodium [Colace] 100 mg PO DAILY Metoprolol Tartrate [Lopressor] 25 mg PO BID 10/06/16 09:14 RT Aerosol Therapy [RC] ASDIRECTED 10/06/16 09:30 Vancomycin 750 mg Sodium Chloride 0.9% [Normal Saline] 250 ml IV Q24H 10/06/16 10:24 Loperamide [Imodium] 4 mg PO ONETIME PRN 10/06/16 21:00 Budesonide [Pulmicort] 0.5 mg NEB BIDRT Mirtazapine [Remeron] 30 mg PO BEDTIME [facility]in [Lipitor] 10 mg PO BEDTIME 10/07/16 09:00 PARoxetine [Paxil] 10 mg PO DAILY 10/09/16 09:00 VANCOMYCIN TROUGH [CHEM] Routine - Assessment Assessment:: I was present with the resident during the history and exam. I discussed the case with the rresident and agree with the findings and plan as documented in the resident's note
[2016-10-06] MEDS: LORazepam 0.5 MG Tab PO PRN (19:21)
[2016-10-06] MEDS: atorvaSTATin 10 MG Tab PO SCH (20:12)
[2016-10-06] MEDS: Mirtazapine 15 MG Tab PO SCH (20:12)
[2016-10-06] MEDS: Furosemide 40 MG/4 ML VIAL IVPUSH SCH (20:14)
[2016-10-06] MEDS: Budesonide 0.5 MG/2 ML Neb Susp NEB SCH (21:34)
[2016-10-07] MEDS: Enoxaparin 30 MG/0.3 ML Syringe SUBCUT SCH ×2 (00:32→23:57)
[2016-10-07] MEDS: Clindamycin Phosphate in D5W 300 MG in Premix Bag 1 BAG IV SCH ×8 (00:32→23:57)
[2016-10-07] MEDS: Albuterol/Ipratropium 3.0-0.5 MG/3 ML Neb Soln NEB SCH ×6 (02:41→21:10)
[2016-10-07] MEDS: LORazepam 0.5 MG Tab PO PRN ×3 (03:03→08:44)
[2016-10-07] MEDS: Budesonide 0.5 MG/2 ML Neb Susp NEB SCH ×2 (06:05→21:10)
[2016-10-07] MEDS: Docusate Sodium 100 MG Cap PO SCH (08:17)
[2016-10-07] MEDS: Aspirin 81 MG Tab.Chew PO SCH (08:17)
[2016-10-07] MEDS: Clopidogrel 75 MG Tab PO SCH (08:17)
[2016-10-07] MEDS: Metoprolol Tartrate 25 MG Tab PO SCH ×2 (08:18→22:22)
[2016-10-07] MEDS: Furosemide 40 MG/4 ML VIAL IVPUSH SCH ×2 (08:22→22:21)
[2016-10-07] MEDS: PARoxetine 20 MG Tab PO SCH (08:31)
[2016-10-07] MEDS: Benzonatate 100 MG Cap PO PRN (08:45)
--- NOTE | 2016-10-07 09:37 | PCM.PN ---
<Wilner Johnson - Last Filed: 10/07/16 09:31> - General Info Date of Service: 10/07/16 Admission Dx/Problem (Free Text): Admission Diagnosis/Problem Admission Diagnosis/Problem CHF Subjective Update: Patient's respiratory status has improved since yesterday morning. She is now requiring between 6-10 L of oxygen via nasal cannula. Her baseline is 3 L. Patient continues to have diminished appetite but is trying to eat. She denies any nausea, vomiting, chest pain, palpitations. Nursing notes that her work of breathing is increased and has been so since admission. Functional Status: Reports: tolerating diet, urinating (Yadav catheter) - Review of Systems General: Reports: Weakness, Fatigue HEENT: Reports: no symptoms Pulmonary: Reports: shortness of breath Cardiovascular: Reports: No Symptoms Gastrointestinal: Reports: No symptoms Genitourinary: Reports: no symptoms Musculoskeletal: Reports: no symptoms Skin: Reports: no symptoms Neurological: Reports: No Symptoms Psychiatric: Reports: no symptoms - Patient Data Vitals - most recent: Last Vital Signs Temp 97.9 F 10/07/16 00:00 Pulse 97 10/07/16 08:18 Resp 35 H 10/07/16 04:00 BP 140/91 H 10/07/16 08:18 Pulse Ox 93 L 10/07/16 04:00 Weight - most recent: 58 kg I&O - last 24 hours: Intake & Output 10/06/16 10/07/16 10/07/16 22:59 06:59 14:59 Intake Total 1022 940 Output Total 1250 1300 Balance -228 -360 Lab Results last 24 hrs: Laboratory Results - last 24 hr 10/06/16 10/07/16 10/07/16 Range/Units 05:00 05:11 05:11 WBC 11.84 H (4.0-11.0) K/uL RBC 2.84 L (4.30-5.90) M/uL Hgb 8.8 L (12.0-16.0) g/dL Hct 28.9 L (36.0-46.0) % MCV 101.8 H (80.0-98.0) fL MCH 31.0 (27.0-32.0) pg MCHC 30.4 L (31.0-37.0) g/dL RDW Std Deviation 60.7 (28.0-62.0) fl RDW Coeff of Masood 16 H (11.0-15.0) % Plt Count 277 (150-400) K/uL MPV 11.90 (7.40-12.00) fL Neut % (Auto) 73.8 (48.0-80.0) % Lymph % (Auto) 11.2 L (16.0-40.0) % [place] % (Auto) 13.7 (0.0-15.0) % Eos % (Auto) 0.8 (0.0-7.0) % Baso % (Auto) 0.5 (0.0-1.5) % Neut # (Auto) 8.7 H (1.4-5.7) K/uL Lymph # (Auto) 1.3 (0.6-2.4) K/uL [place] # (Auto) 1.6 H (0.0-0.8) K/uL Eos # (Auto) 0.1 (0.0-0.7) K/uL Baso # (Auto) 0.1 (0.0-0.1) K/uL Nucleated RBC % 0.4 /100WBC Nucleated RBCs # 0 K/uL Sodium 139 (136-146) mmol/L Potassium 4.3 (3.5-5.1) mmol/L Chloride 105 (98-110) mmol/L Carbon Dioxide 20 L (21-31) mmol/L BUN 34 H (6.0-23.0) mg/dL Creatinine 1.4 (0.6-1.5) mg/dL Est Cr Clr Drug Dosing 23.81 mL/min Estimated GFR (MDRD) 35.6 ml/min Glucose 120 H (60-110) mg/dL Calcium 8.2 L (8.8-10.8) mg/dL B-Natriuretic Peptide > 3306 H (<100) PG/ML Med Orders - Current: Current Medications Acetaminophen (Tylenol) 650 mg PO Q4HR PRN PRN Reason: Pain/Fever Last Admin: 10/06/16 04:42 Dose: 650 mg Albuterol/Ipratropium (Duoneb 3.0-0.5 Mg/3 Ml) 3 ml NEB Q4HRRT [facility] Last Admin: 10/07/16 06:05 Dose: 3 ml Aspirin (Aspirin) 81 mg PO DAILY [facility] Last Admin: 10/07/16 08:17 Dose: 81 mg Atorvastatin Calcium (Lipitor) 10 mg PO BEDTIME [facility] Last Admin: 10/06/16 20:12 Dose: 10 mg Benzonatate (Tessalon Perles) 200 mg PO Q8H PRN PRN Reason: Cough Last Admin: 10/07/16 08:45 Dose: 200 mg Budesonide (Pulmicort) 0.5 mg NEB BIDRT [facility] Last Admin: 10/07/16 06:05 Dose: 0.5 mg Clopidogrel Bisulfate (Plavix) 75 mg PO DAILY [facility] Last Admin: 10/07/16 08:17 Dose: 75 mg Docusate Sodium (Colace) 100 mg PO DAILY [facility] Last Admin: 10/07/16 08:17 Dose: 100 mg Enoxaparin Sodium (Lovenox) 30 mg SUBCUT Q24H [facility] Last Admin: 10/07/16 00:32 Dose: 30 mg Furosemide (Lasix) 40 mg IVPUSH BID [facility] Last Admin: 10/07/16 08:22 Dose: 40 mg Clindamycin Phosphate 300 mg/ (Premix) 50 mls @ 150 mls/hr IV Q8H [facility] Last Admin: 10/07/16 08:24 Dose: 150 mls/hr Vancomycin HCl 750 mg/ Sodium (Chloride) 250 mls @ 250 mls/hr IV Q24H [facility] Last Admin: 10/07/16 08:59 Dose: 250 mls/hr Loperamide HCl (Imodium) 4 mg PO ONETIME PRN PRN Reason: Diarrhea Lorazepam (Ativan) 0.5 mg PO Q2H PRN PRN Reason: Agitation Last Admin: 10/07/16 08:44 Dose: 0.5 mg Metoprolol Tartrate (Lopressor) 25 mg PO BID [facility] Last Admin: 10/07/16 08:18 Dose: 25 mg Mirtazapine (Remeron) 30 mg PO BEDTIME [facility] Last Admin: 10/06/16 20:12 Dose: 30 mg Paroxetine HCl (Paxil) 10 mg PO DAILY [facility] Last Admin: 10/07/16 08:31 Dose: 10 mg Vancomycin HCl (Pharmacy To Dose - Vancomycin) 1 dose .XX ASDIRECTED [facility] Discontinued Medications Albuterol/Ipratropium (Duoneb 3.0-0.5 Mg/3 Ml) 3 ml NEB Q6HRRT [facility] Albuterol/Ipratropium (Duoneb 3.0-0.5 Mg/3 Ml) Confirm Administered Dose 3 ml .ROUTE .STK-MED ONE Stop: 10/06/16 08:43 Last Admin: 10/06/16 08:44 Dose: 3 ml Furosemide (Lasix) 40 mg IVPUSH NOW ONE Stop: 10/06/16 13:04 Last Admin: 10/06/16 13:09 Dose: 40 mg Clindamycin Phosphate 300 mg/ (Premix) 50 mls @ 150 mls/hr IV ONETIME ONE Stop: 10/05/16 22:03 Last Admin: 10/05/16 21:57 Dose: 150 mls/hr Sodium Chloride (Normal Saline) 1,000 mls @ 50 mls/hr IV STAT [facility] Last Admin: 10/05/16 21:56 Dose: 125 mls/hr Vancomycin HCl 1 gm/ Sodium (Chloride) 250 mls @ 250 mls/hr IV ONETIME ONE Stop: 10/05/16 22:43 Last Admin: 10/05/16 21:59 Dose: 250 mls/hr Lorazepam (Ativan) 1 mg PO ASDIRECTED PRN PRN Reason: Anxiety Last Admin: 10/06/16 16:23 Dose: 1 mg Non-Formulary Medication (Loperamide) 4 mg PO ONETIME PRN PRN Reason: Diarrhea Paroxetine HCl (Paxil) 20 mg PO DAILY [facility] Last Admin: 10/06/16 10:35 Dose: Not Given Pulmicort Flexhaler 0 each INH BID [facility] Last Admin: 10/06/16 10:35 Dose: Not Given - Exam Quality Assessment: supplemental oxygen (6-10 L nasal cannula), urine catheter, DVT prophylaxis (scd's, Lovenox) General: oriented, cooperative, mild distress Lungs: Clear to auscultation, Other (Increased work of breathing noted despite supplemental oxygen.) Cardiovascular: Regular Rate, Regular Rhythm Abdomen: bowel sounds present, soft, no tenderness, no distension Extremities: no calf tenderness (+1 pitting edema in the lower extremities bilaterally.), edema Peripheral Pulses: 2+: radial (L), radial (R) Skin: warm, dry, intact Neurological: no new focal deficit Psy/Mental Status: alert, other (Patient appears extremely tired.) - Problem List & Annotations (1) CHF (congestive heart failure) SNOMED Code(s): 96292333 Code(s): I50.9 - HEART FAILURE, UNSPECIFIED Status: Acute Current Visit: Yes (2) Pneumonia SNOMED Code(s): 309569739 Code(s): J18.9 - PNEUMONIA, UNSPECIFIED ORGANISM Status: Acute Current Visit: Yes (3) UTI (urinary tract infection), bacterial SNOMED Code(s): 875007155 Code(s): N39.0 - URINARY TRACT INFECTION, SITE NOT SPECIFIED; A49.9 - BACTERIAL INFECTION, UNSPECIFIED Status: Acute Current Visit: No Annotation/Comment:: MRSA - Problem List Review Problem List Initiated/Reviewed/Updated: Yes - My Orders Last 24 Hours: My Active Orders 10/06/16 10:00 Albuterol/Ipratropium [DuoNeb 3.0-0.5 MG/3 ML] 3 ml NEB Q4HRRT 10/06/16 13:13 Echo Comp wo Cont [US] Routine 10/06/16 21:00 Furosemide [Lasix] 40 mg IVPUSH BID 10/06/16 Dinner Regular Diet [DIET] 10/08/16 05:11 BASIC METABOLIC PANEL,BMP [CHEM] AM CBC WITH AUTO DIFF [HEME] AM 10/09/16 05:11 BASIC METABOLIC PANEL,BMP [CHEM] AM CBC WITH AUTO DIFF [HEME] AM - Plan Plan:: 85-year-old female admitted with dyspnea. #1. Congestive heart failure: -BNP is elevated at 3306. Looking back over previous admissions, her BNP at its highest was 838 in August of 2016. BNP has been getting progressively higher. -Continue Lasix 40 mg IV twice a day. Continue to monitor kidney function with daily BMPs. Kidney function is currently stable. -Echocardiogram results are pending. #2. UTI: -Patient's urinalysis shows positive nitrite and +1 bacteria. She recently finished a course of Macrobid for a urinary tract infection. -Urine cultures are pending. -Continue clindamycin 300 mg IV every 8 hours and vancomycin 750 mg IV daily. Patient has multiple antibiotic allergies. #3. Pneumonia: -Chest x-ray did show pulmonary edema with a superimposed infectious etiology they cannot be excluded. -Continue clindamycin 300 mg IV every 8 hours vancomycin 750 mg IV daily. -Blood cultures are negative x1 day. -White blood cell count is mildly elevated today at almost 12,000. Was previously normal. I did speak with the patient's daughter and and they want to continue with aggressive treatment and are not considering comfort care at this time. <Hayden Sawant O - Last Filed: 10/07/16 10:12> - Patient Data Vitals - most recent: Last Vital Signs Temp 37.2 C 10/07/16 08:00 Pulse 97 10/07/16 08:18 Resp 36 H 10/07/16 08:00 BP 140/91 H 10/07/16 08:18 Pulse Ox 92 L 10/07/16 08:00 I&O - last 24 hours: Intake & Output 10/06/16 10/07/16 10/07/16 22:59 06:59 14:59 Intake Total 1022 940 Output Total 1250 1300 Balance -228 -360 Lab Results last 24 hrs: Laboratory Results - last 24 hr 10/06/16 10/07/16 10/07/16 Range/Units 05:00 05:11 05:11 WBC 11.84 H (4.0-11.0) K/uL RBC 2.84 L (4.30-5.90) M/uL Hgb 8.8 L (12.0-16.0) g/dL Hct 28.9 L (36.0-46.0) % MCV 101.8 H (80.0-98.0) fL MCH 31.0 (27.0-32.0) pg MCHC 30.4 L (31.0-37.0) g/dL RDW Std Deviation 60.7 (28.0-62.0) fl RDW Coeff of Masood 16 H (11.0-15.0) % Plt Count 277 (150-400) K/uL MPV 11.90 (7.40-12.00) fL Neut % (Auto) 73.8 (48.0-80.0) % Lymph % (Auto) 11.2 L (16.0-40.0) % [place] % (Auto) 13.7 (0.0-15.0) % Eos % (Auto) 0.8 (0.0-7.0) % Baso % (Auto) 0.5 (0.0-1.5) % Neut # (Auto) 8.7 H (1.4-5.7) K/uL Lymph # (Auto) 1.3 (0.6-2.4) K/uL [place] # (Auto) 1.6 H (0.0-0.8) K/uL Eos # (Auto) 0.1 (0.0-0.7) K/uL Baso # (Auto) 0.1 (0.0-0.1) K/uL Nucleated RBC % 0.4 /100WBC Nucleated RBCs # 0 K/uL Sodium 139 (136-146) mmol/L Potassium 4.3 (3.5-5.1) mmol/L Chloride 105 (98-110) mmol/L Carbon Dioxide 20 L (21-31) mmol/L BUN 34 H (6.0-23.0) mg/dL Creatinine 1.4 (0.6-1.5) mg/dL Est Cr Clr Drug Dosing 23.81 mL/min Estimated GFR (MDRD) 35.6 ml/min Glucose 120 H (60-110) mg/dL Calcium 8.2 L (8.8-10.8) mg/dL B-Natriuretic Peptide > 3306 H (<100) PG/ML Med Orders - Current: Current Medications Acetaminophen (Tylenol) 650 mg PO Q4HR PRN PRN Reason: Pain/Fever Last Admin: 10/06/16 04:42 Dose: 650 mg Albuterol/Ipratropium (Duoneb 3.0-0.5 Mg/3 Ml) 3 ml NEB Q4HRRT [facility] Last Admin: 10/07/16 06:05 Dose: 3 ml Aspirin (Aspirin) 81 mg PO DAILY [facility] Last Admin: 10/07/16 08:17 Dose: 81 mg Atorvastatin Calcium (Lipitor) 10 mg PO BEDTIME [facility] Last Admin: 10/06/16 20:12 Dose: 10 mg Benzonatate (Tessalon Perles) 200 mg PO Q8H PRN PRN Reason: Cough Last Admin: 10/07/16 08:45 Dose: 200 mg Budesonide (Pulmicort) 0.5 mg NEB BIDRT [facility] Last Admin: 10/07/16 06:05 Dose: 0.5 mg Clopidogrel Bisulfate (Plavix) 75 mg PO DAILY [facility] Last Admin: 10/07/16 08:17 Dose: 75 mg Docusate Sodium (Colace) 100 mg PO DAILY [facility] Last Admin: 10/07/16 08:17 Dose: 100 mg Enoxaparin Sodium (Lovenox) 30 mg SUBCUT Q24H [facility] Last Admin: 10/07/16 00:32 Dose: 30 mg Furosemide (Lasix) 40 mg IVPUSH BID [facility] Last Admin: 10/07/16 08:22 Dose: 40 mg Clindamycin Phosphate 300 mg/ (Premix) 50 mls @ 150 mls/hr IV Q8H [facility] Last Admin: 10/07/16 08:24 Dose: 150 mls/hr Vancomycin HCl 750 mg/ Sodium (Chloride) 250 mls @ 250 mls/hr IV Q24H [facility] Last Admin: 10/07/16 08:59 Dose: 250 mls/hr Loperamide HCl (Imodium) 4 mg PO ONETIME PRN PRN Reason: Diarrhea Lorazepam (Ativan) 0.5 mg PO Q2H PRN PRN Reason: Agitation Last Admin: 10/07/16 08:44 Dose: 0.5 mg Metoprolol Tartrate (Lopressor) 25 mg PO BID [facility] Last Admin: 10/07/16 08:18 Dose: 25 mg Mirtazapine (Remeron) 30 mg PO BEDTIME [facility] Last Admin: 10/06/16 20:12 Dose: 30 mg Paroxetine HCl (Paxil) 10 mg PO DAILY [facility] Last Admin: 10/07/16 08:31 Dose: 10 mg Vancomycin HCl (Pharmacy To Dose - Vancomycin) 1 dose .XX ASDIRECTED [facility] Discontinued Medications Albuterol/Ipratropium (Duoneb 3.0-0.5 Mg/3 Ml) 3 ml NEB Q6HRRT [facility] Albuterol/Ipratropium (Duoneb 3.0-0.5 Mg/3 Ml) Confirm Administered Dose 3 ml .ROUTE .STK-MED ONE Stop: 10/06/16 08:43 Last Admin: 10/06/16 08:44 Dose: 3 ml Furosemide (Lasix) 40 mg IVPUSH NOW ONE Stop: 10/06/16 13:04 Last Admin: 10/06/16 13:09 Dose: 40 mg Clindamycin Phosphate 300 mg/ (Premix) 50 mls @ 150 mls/hr IV ONETIME ONE Stop: 10/05/16 22:03 Last Admin: 10/05/16 21:57 Dose: 150 mls/hr Sodium Chloride (Normal Saline) 1,000 mls @ 50 mls/hr IV STAT [facility] Last Admin: 10/05/16 21:56 Dose: 125 mls/hr Vancomycin HCl 1 gm/ Sodium (Chloride) 250 mls @ 250 mls/hr IV ONETIME ONE Stop: 10/05/16 22:43 Last Admin: 10/05/16 21:59 Dose: 250 mls/hr Lorazepam (Ativan) 1 mg PO ASDIRECTED PRN PRN Reason: Anxiety Last Admin: 10/06/16 16:23 Dose: 1 mg Non-Formulary Medication (Loperamide) 4 mg PO ONETIME PRN PRN Reason: Diarrhea Paroxetine HCl (Paxil) 20 mg PO DAILY [facility] Last Admin: 10/06/16 10:35 Dose: Not Given Pulmicort Flexhaler 0 each INH BID [facility] Last Admin: 10/06/16 10:35 Dose: Not Given - My Orders Last 24 Hours: My Active Orders 10/06/16 09:14 RT Aerosol Therapy [RC] ASDIRECTED 10/06/16 09:30 Vancomycin 750 mg Sodium Chloride 0.9% [Normal Saline] 250 ml IV Q24H 10/06/16 10:24 Loperamide [Imodium] 4 mg PO ONETIME PRN 10/06/16 18:52 LORazepam [Ativan] 0.5 mg PO Q2H PRN 10/06/16 21:00 Budesonide [Pulmicort] 0.5 mg NEB BIDRT Mirtazapine [Remeron] 30 mg PO BEDTIME atorvaSTATin [Lipitor] 10 mg PO BEDTIME 10/07/16 09:00 PARoxetine [Paxil] 10 mg PO DAILY 10/09/16 09:00 VANCOMYCIN TROUGH [CHEM] Routine - Assessment Assessment:: I was present with the resident during the history and exam. I discussed the case with the resident and agree with the findings and plan as documented in the resident's note
--- NOTE | 2016-10-07 15:09 | CR ---
EXAMINATION: Portable chest radiograph. HISTORY: Shortness of breath. FINDINGS: The heart is borderline in size. Again noted are hazy diffuse pulmonary infiltrates. No definite pne umothorax or pleural effusion. Osseous structures appear osteopenic. IMPRESSION: Grossly unchanged to mildly increasing hazy bilateral pulmonary infiltrates. Correlate for edema lakeisha chandana pneumonia.
[2016-10-07] MEDS: Meropenem 1 GM in Sodium Chloride 0.9% 100 ML IV SCH (16:32)
[2016-10-07] MEDS: Acetaminophen 325 MG Tab PO PRN (17:11)
[2016-10-07] MEDS: atorvaSTATin 10 MG Tab PO SCH (22:22)
[2016-10-07] MEDS: Mirtazapine 15 MG Tab PO SCH (22:22)
[2016-10-08] MEDS: Acetaminophen 325 MG Tab PO PRN ×3 (02:16→18:48)
[2016-10-08] MEDS: Albuterol/Ipratropium 3.0-0.5 MG/3 ML Neb Soln NEB SCH ×6 (02:16→21:00)
[2016-10-08] MEDS: LORazepam 0.5 MG Tab PO PRN ×3 (02:17→20:11)
[2016-10-08] MEDS: Meropenem 1 GM in Sodium Chloride 0.9% 100 ML IV SCH ×2 (02:29→16:28)
[2016-10-08] MEDS: Budesonide 0.5 MG/2 ML Neb Susp NEB SCH ×2 (05:53→20:50)
[2016-10-08] MEDS: Clindamycin Phosphate in D5W 300 MG in Premix Bag 1 BAG IV SCH ×6 (08:45→23:46)
[2016-10-08] MEDS: Docusate Sodium 100 MG Cap PO SCH (08:51)
[2016-10-08] MEDS: Furosemide 40 MG/4 ML VIAL IVPUSH SCH ×2 (08:51→20:05)
[2016-10-08] MEDS: PARoxetine 20 MG Tab PO SCH (08:51)
[2016-10-08] MEDS: Clopidogrel 75 MG Tab PO SCH (08:51)
[2016-10-08] MEDS: Metoprolol Tartrate 25 MG Tab PO SCH ×2 (08:52→20:06)
[2016-10-08] MEDS: Aspirin 81 MG Tab.Chew PO SCH (08:52)
--- NOTE | 2016-10-08 09:09 | PCM.PN ---
- General Info Date of Service: 10/08/16 Admission Dx/Problem (Free Text): Admission Diagnosis/Problem Admission Diagnosis/Problem CHF, pneumonia Subjective Update: Patient looks much better this morning and appears more alert. She is still requiring between 6-10 L of oxygen via nasal cannula but her work of breathing appears to be improved. She reports no pain this morning and has no other acute concerns. Nursing notes that her respiratory status has improved as well. She continues to have a decreased appetite and is getting Ensure for calorie supplementation. Functional Status: Reports: pain controlled. Denies: ambulating (Patient is not ambulating but with assistance is able to get up to a bedside chair.) - Review of Systems General: Reports: Weakness, Fatigue HEENT: Reports: no symptoms Pulmonary: Reports: shortness of breath (Mild improvement). Denies: cough, wheezing Cardiovascular: Reports: Edema (Trace edema in the lower extremities bilaterally.) Gastrointestinal: Reports: Decreased appetite Genitourinary: Reports: no symptoms Musculoskeletal: Reports: no symptoms Skin: Reports: no symptoms Neurological: Reports: No Symptoms, Weakness Psychiatric: Reports: no symptoms - Patient Data Vitals - most recent: Last Vital Signs Temp 98.7 F 10/08/16 07:48 Pulse 85 10/08/16 08:52 Resp 20 10/08/16 07:48 BP 129/74 10/08/16 08:52 Pulse Ox 96 10/08/16 07:48 Weight - most recent: 132 lb 4.438 oz I&O - last 24 hours: Intake & Output 10/07/16 10/08/16 10/08/16 22:59 06:59 14:59 Intake Total 530 770 Output Total 950 400 Balance -420 370 Lab Results last 24 hrs: Laboratory Results - last 24 hr 10/08/16 10/08/16 Range/Units 05:07 05:07 WBC 12.60 H (4.0-11.0) K/uL RBC 3.13 L (4.30-5.90) M/uL Hgb 9.6 L (12.0-16.0) g/dL Hct 32.1 L (36.0-46.0) % MCV 102.6 H (80.0-98.0) fL MCH 30.7 (27.0-32.0) pg MCHC 29.9 L (31.0-37.0) g/dL RDW Std Deviation 60.6 (28.0-62.0) fl RDW Coeff of Masood 17 H (11.0-15.0) % Plt Count 290 (150-400) K/uL MPV 11.80 (7.40-12.00) fL Neut % (Auto) 81.9 H (48.0-80.0) % Lymph % (Auto) 5.1 L (16.0-40.0) % [place] % (Auto) 11.0 (0.0-15.0) % Eos % (Auto) 1.6 (0.0-7.0) % Baso % (Auto) 0.4 (0.0-1.5) % Neut # (Auto) 10.3 H (1.4-5.7) K/uL Lymph # (Auto) 0.6 (0.6-2.4) K/uL [place] # (Auto) 1.4 H (0.0-0.8) K/uL Eos # (Auto) 0.2 (0.0-0.7) K/uL Baso # (Auto) 0.1 (0.0-0.1) K/uL Nucleated RBC % 0.7 /100WBC Nucleated RBCs # 0 K/uL Sodium 143 (136-146) mmol/L Potassium 3.9 (3.5-5.1) mmol/L Chloride 105 (98-110) mmol/L Carbon Dioxide 24 (21-31) mmol/L BUN 35 H (6.0-23.0) mg/dL Creatinine 1.5 (0.6-1.5) mg/dL Est Cr Clr Drug Dosing 22.23 mL/min Estimated GFR (MDRD) 32.8 ml/min Glucose 108 (60-110) mg/dL Calcium 8.3 L (8.8-10.8) mg/dL Med Orders - Current: Current Medications Acetaminophen (Tylenol) 650 mg PO Q4HR PRN PRN Reason: Pain/Fever Last Admin: 10/08/16 02:16 Dose: 650 mg Albuterol/Ipratropium (Duoneb 3.0-0.5 Mg/3 Ml) 3 ml NEB Q4HRRT [facility] Last Admin: 10/08/16 05:52 Dose: 3 ml Aspirin (Aspirin) 81 mg PO DAILY [facility] Last Admin: 10/08/16 08:52 Dose: 81 mg Atorvastatin Calcium (Lipitor) 10 mg PO BEDTIME [facility] Last Admin: 10/07/16 22:22 Dose: 10 mg Benzonatate (Tessalon Perles) 200 mg PO Q8H PRN PRN Reason: Cough Last Admin: 10/07/16 08:45 Dose: 200 mg Budesonide (Pulmicort) 0.5 mg NEB BIDRT [facility] Last Admin: 10/08/16 05:53 Dose: 0.5 mg Clopidogrel Bisulfate (Plavix) 75 mg PO DAILY [facility] Last Admin: 10/08/16 08:51 Dose: 75 mg Docusate Sodium (Colace) 100 mg PO DAILY [facility] Last Admin: 10/08/16 08:51 Dose: 100 mg Enoxaparin Sodium (Lovenox) 30 mg SUBCUT Q24H [facility] Last Admin: 10/07/16 23:57 Dose: 30 mg Furosemide (Lasix) 40 mg IVPUSH BID [facility] Last Admin: 10/08/16 08:51 Dose: 40 mg Clindamycin Phosphate 300 mg/ (Premix) 50 mls @ 150 mls/hr IV Q8H [facility] Last Admin: 10/08/16 08:45 Dose: 150 mls/hr Vancomycin HCl 750 mg/ Sodium (Chloride) 250 mls @ 250 mls/hr IV Q24H [facility] Last Admin: 10/07/16 08:59 Dose: 250 mls/hr Meropenem 1 gm/ Sodium (Chloride) 100 mls @ 200 mls/hr IV Q12H [facility] Last Admin: 10/08/16 02:29 Dose: 200 mls/hr Loperamide HCl (Imodium) 4 mg PO ONETIME PRN PRN Reason: Diarrhea Lorazepam (Ativan) 0.5 mg PO Q2H PRN PRN Reason: Agitation Last Admin: 10/08/16 02:17 Dose: 0.5 mg Metoprolol Tartrate (Lopressor) 25 mg PO BID [facility] Last Admin: 10/08/16 08:52 Dose: 25 mg Mirtazapine (Remeron) 30 mg PO BEDTIME [facility] Last Admin: 10/07/16 22:22 Dose: 30 mg Paroxetine HCl (Paxil) 10 mg PO DAILY [facility] Last Admin: 10/08/16 08:51 Dose: 10 mg Vancomycin HCl (Pharmacy To Dose - Vancomycin) 1 dose .XX ASDIRECTED [facility] Discontinued Medications Albuterol/Ipratropium (Duoneb 3.0-0.5 Mg/3 Ml) 3 ml NEB Q6HRRT [facility] Albuterol/Ipratropium (Duoneb 3.0-0.5 Mg/3 Ml) Confirm Administered Dose 3 ml .ROUTE .STK-MED ONE Stop: 10/06/16 08:43 Last Admin: 10/06/16 08:44 Dose: 3 ml Furosemide (Lasix) 40 mg IVPUSH NOW ONE Stop: 10/06/16 13:04 Last Admin: 10/06/16 13:09 Dose: 40 mg Clindamycin Phosphate 300 mg/ (Premix) 50 mls @ 150 mls/hr IV ONETIME ONE Stop: 10/05/16 22:03 Last Admin: 10/05/16 21:57 Dose: 150 mls/hr Sodium Chloride (Normal Saline) 1,000 mls @ 50 mls/hr IV STAT [facility] Last Admin: 10/05/16 21:56 Dose: 125 mls/hr Vancomycin HCl 1 gm/ Sodium (Chloride) 250 mls @ 250 mls/hr IV ONETIME ONE Stop: 10/05/16 22:43 Last Admin: 10/05/16 21:59 Dose: 250 mls/hr Lorazepam (Ativan) 1 mg PO ASDIRECTED PRN PRN Reason: Anxiety Last Admin: 10/06/16 16:23 Dose: 1 mg Non-Formulary Medication (Loperamide) 4 mg PO ONETIME PRN PRN Reason: Diarrhea Paroxetine HCl (Paxil) 20 mg PO DAILY [facility] Last Admin: 10/06/16 10:35 Dose: Not Given Pulmicort Flexhaler 0 each INH BID [facility] Last Admin: 10/06/16 10:35 Dose: Not Given - Exam Quality Assessment: supplemental oxygen (6-10 L nasal cannula), DVT prophylaxis (scd's) General: alert, oriented, cooperative, mild distress Lungs: Clear to auscultation, Normal respiratory effort Cardiovascular: Regular Rate, Regular Rhythm Abdomen: bowel sounds present, soft, no tenderness, no distension Extremities: no calf tenderness, edema (Trace edema in the lower extremities bilaterally.) Peripheral Pulses: 2+: radial (L), radial (R) Skin: warm, dry, intact Neurological: no new focal deficit Psy/Mental Status: alert, other (Patient appears extremely tired.) - Problem List & Annotations (1) CHF (congestive heart failure) SNOMED Code(s): 55551897 Code(s): I50.9 - HEART FAILURE, UNSPECIFIED Status: Acute Current Visit: Yes (2) Pneumonia SNOMED Code(s): 193626185 Code(s): J18.9 - PNEUMONIA, UNSPECIFIED ORGANISM Status: Acute Current Visit: Yes (3) UTI (urinary tract infection), bacterial SNOMED Code(s): 510797491 Code(s): N39.0 - URINARY TRACT INFECTION, SITE NOT SPECIFIED; A49.9 - BACTERIAL INFECTION, UNSPECIFIED Status: Acute Current Visit: No Annotation/Comment:: MRSA - Problem List Review Problem List Initiated/Reviewed/Updated: Yes - Plan Plan:: 85-year-old female admitted with dyspnea. #1. HFrEF: -BNP is elevated at 3306 -Continue Lasix 40 mg IV twice a day. Continue to monitor kidney function with daily BMPs. Kidney function is currently stable. -Echocardiogram shows EF of 15-20%. -Continue Metoprolol. Will add Lisinopril 10mg daily. #2. UTI: -Patient's urinalysis shows positive nitrite and +1 bacteria. She recently finished a course of Macrobid for a urinary tract infection. -Urine cultures are pending. -Continue clindamycin 300 mg IV every 8 hours and vancomycin 750 mg IV daily. Meropenem 1 g IV every 12 hours was also added for broader coverage. #3. Pneumonia: -Repeat chest x-ray shows worsening bilateral pulmonary infiltrates. Pulmonary edema versus pneumonia. Consider Chest CT if WBC continues to worsen. -Continue clindamycin 300 mg IV every 8 hours vancomycin 750 mg IV daily. Meropenem 1 g IV every 12 hours was added yesterday. -Blood cultures are negative x2 days. -White blood cell count has increased from yesterday. I did speak with the patient's daughter and and they want to continue with aggressive treatment and are not considering comfort care at this time.
[2016-10-08] MEDS: Lisinopril 10 MG Tab PO SCH (11:43)
[2016-10-08] MEDS: Ibuprofen 200 MG Tab PO PRN (20:06)
[2016-10-08] MEDS: atorvaSTATin 10 MG Tab PO SCH (20:06)
[2016-10-08] MEDS: Mirtazapine 15 MG Tab PO SCH (20:06)
[2016-10-08] MEDS: Enoxaparin 30 MG/0.3 ML Syringe SUBCUT SCH (23:46)
[2016-10-09] MEDS: Albuterol/Ipratropium 3.0-0.5 MG/3 ML Neb Soln NEB SCH ×7 (02:01→23:44)
[2016-10-09] MEDS: Meropenem 1 GM in Sodium Chloride 0.9% 100 ML IV SCH (03:43)
[2016-10-09] MEDS: Budesonide 0.5 MG/2 ML Neb Susp NEB SCH ×2 (05:59→20:20)
[2016-10-09] MEDS: Docusate Sodium 100 MG Cap PO SCH (08:47)
[2016-10-09] MEDS: Aspirin 81 MG Tab.Chew PO SCH (08:47)
[2016-10-09] MEDS: Lisinopril 10 MG Tab PO SCH (08:47)
[2016-10-09] MEDS: Metoprolol Tartrate 25 MG Tab PO SCH ×2 (08:47→21:38)
[2016-10-09] MEDS: Clopidogrel 75 MG Tab PO SCH (08:48)
[2016-10-09] MEDS: Furosemide 40 MG/4 ML VIAL IVPUSH SCH ×2 (08:48→11:12)
[2016-10-09] MEDS: Ibuprofen 200 MG Tab PO PRN (08:48)
[2016-10-09] MEDS: PARoxetine 20 MG Tab PO SCH (08:49)
[2016-10-09] MEDS: Clindamycin Phosphate in D5W 300 MG in Premix Bag 1 BAG IV SCH ×2 (08:54)
--- NOTE | 2016-10-09 14:11 | PCM.PN ---
- Review of Systems Systems Review Comment:: shortness of breath improving. Patient does not want her IV restarted. - Patient Data Vitals - most recent: Last Vital Signs Temp 37.1 C 10/09/16 11:00 Pulse 95 10/09/16 11:00 Resp 24 H 10/09/16 11:00 BP 109/59 L 10/09/16 11:00 Pulse Ox 95 10/09/16 11:00 Weight - most recent: 58 kg I&O - last 24 hours: Intake & Output 10/08/16 10/09/16 10/09/16 22:59 06:59 14:59 Intake Total 850 600 Output Total 1350 375 Balance -500 225 Lab Results last 24 hrs: Laboratory Results - last 24 hr 10/09/16 10/09/16 10/09/16 Range/Units 06:30 06:30 09:00 WBC 10.76 (4.0-11.0) K/uL RBC 3.27 L (4.30-5.90) M/uL Hgb 10.0 L (12.0-16.0) g/dL Hct 33.2 L (36.0-46.0) % MCV 101.5 H (80.0-98.0) fL MCH 30.6 (27.0-32.0) pg MCHC 30.1 L (31.0-37.0) g/dL RDW Std Deviation 60.2 (28.0-62.0) fl RDW Coeff of Masood 17 H (11.0-15.0) % Plt Count 298 (150-400) K/uL MPV 11.70 (7.40-12.00) fL Neut % (Auto) 87.7 H (48.0-80.0) % Lymph % (Auto) 5.0 L (16.0-40.0) % Yancey % (Auto) 5.4 (0.0-15.0) % Eos % (Auto) 1.7 (0.0-7.0) % Baso % (Auto) 0.2 (0.0-1.5) % Neut # (Auto) 9.4 H (1.4-5.7) K/uL Lymph # (Auto) 0.5 L (0.6-2.4) K/uL Yancey # (Auto) 0.6 (0.0-0.8) K/uL Eos # (Auto) 0.2 (0.0-0.7) K/uL Baso # (Auto) 0.0 (0.0-0.1) K/uL Nucleated RBC % 0.7 /100WBC Nucleated RBCs # 0 K/uL Sodium 140 (136-146) mmol/L Potassium 3.8 (3.5-5.1) mmol/L Chloride 101 (98-110) mmol/L Carbon Dioxide 26 (21-31) mmol/L BUN 34 H (6.0-23.0) mg/dL Creatinine 1.6 H (0.6-1.5) mg/dL Est Cr Clr Drug Dosing 20.84 mL/min Estimated GFR (MDRD) 30.5 ml/min Glucose 104 (60-110) mg/dL Calcium 8.1 L (8.8-10.8) mg/dL Vancomycin Trough 20.5 H (5-15) ug/mL Med Orders - Current: Current Medications Acetaminophen (Tylenol) 650 mg PO Q4HR PRN PRN Reason: Pain/Fever Last Admin: 10/08/16 18:48 Dose: 650 mg Albuterol/Ipratropium (Duoneb 3.0-0.5 Mg/3 Ml) 3 ml NEB Q4HRRT [facility] Last Admin: 10/09/16 10:15 Dose: 3 ml Aspirin (Aspirin) 81 mg PO DAILY [facility] Last Admin: 10/09/16 08:47 Dose: 81 mg Atorvastatin Calcium (Lipitor) 10 mg PO BEDTIME [facility] Last Admin: 10/08/16 20:06 Dose: 10 mg Benzonatate (Tessalon Perles) 200 mg PO Q8H PRN PRN Reason: Cough Last Admin: 10/07/16 08:45 Dose: 200 mg Budesonide (Pulmicort) 0.5 mg NEB BIDRT [facility] Last Admin: 10/09/16 05:59 Dose: 0.5 mg Clindamycin HCl (Cleocin) 300 mg PO Q8H [facility] Clopidogrel Bisulfate (Plavix) 75 mg PO DAILY [facility] Last Admin: 10/09/16 08:48 Dose: 75 mg Docusate Sodium (Colace) 100 mg PO DAILY [facility] Last Admin: 10/09/16 08:47 Dose: 100 mg Enoxaparin Sodium (Lovenox) 30 mg SUBCUT Q24H [facility] Last Admin: 10/08/16 23:46 Dose: 30 mg Furosemide (Lasix) 40 mg PO BIDDIURETIC [facility]IEJ Ibuprofen (Motrin) 200 mg PO Q6H PRN PRN Reason: Pain Last Admin: 10/09/16 08:48 Dose: 200 mg Lisinopril (Prinivil) 10 mg PO DAILY [facility] Last Admin: 10/09/16 08:47 Dose: 10 mg Loperamide HCl (Imodium) 4 mg PO ONETIME PRN PRN Reason: Diarrhea Lorazepam (Ativan) 0.5 mg PO Q2H PRN PRN Reason: Agitation Last Admin: 10/08/16 20:11 Dose: 0.5 mg Metoprolol Tartrate (Lopressor) 25 mg PO BID [facility] Last Admin: 10/09/16 08:47 Dose: 25 mg Mirtazapine (Remeron) 30 mg PO BEDTIME [facility] Last Admin: 10/08/16 20:06 Dose: 30 mg Paroxetine HCl (Paxil) 10 mg PO DAILY [facility] Last Admin: 10/09/16 08:49 Dose: 10 mg Discontinued Medications Albuterol/Ipratropium (Duoneb 3.0-0.5 Mg/3 Ml) 3 ml NEB Q6HRRT [facility] Albuterol/Ipratropium (Duoneb 3.0-0.5 Mg/3 Ml) Confirm Administered Dose 3 ml .ROUTE .STK-MED ONE Stop: 10/06/16 08:43 Last Admin: 10/06/16 08:44 Dose: 3 ml Furosemide (Lasix) 40 mg IVPUSH NOW ONE Stop: 10/06/16 13:04 Last Admin: 10/06/16 13:09 Dose: 40 mg Furosemide (Lasix) 40 mg IVPUSH BID [facility] Last Admin: 10/09/16 11:12 Dose: Not Given Clindamycin Phosphate 300 mg/ (Premix) 50 mls @ 150 mls/hr IV ONETIME ONE Stop: 10/05/16 22:03 Last Admin: 10/05/16 21:57 Dose: 150 mls/hr Sodium Chloride (Normal Saline) 1,000 mls @ 50 mls/hr IV STAT [facility] Last Admin: 10/05/16 21:56 Dose: 125 mls/hr Vancomycin HCl 1 gm/ Sodium (Chloride) 250 mls @ 250 mls/hr IV ONETIME ONE Stop: 10/05/16 22:43 Last Admin: 10/05/16 21:59 Dose: 250 mls/hr Clindamycin Phosphate 300 mg/ (Premix) 50 mls @ 150 mls/hr IV Q8H [facility] Last Admin: 10/09/16 08:54 Dose: 150 mls/hr Vancomycin HCl 750 mg/ Sodium (Chloride) 250 mls @ 250 mls/hr IV Q24H [facility] Last Admin: 10/09/16 11:11 Dose: Not Given Meropenem 1 gm/ Sodium (Chloride) 100 mls @ 200 mls/hr IV Q12H [facility] Last Admin: 10/09/16 03:43 Dose: 200 mls/hr Vancomycin HCl 500 mg/ Sodium (Chloride) 100 mls @ 100 mls/hr IV Q24H [facility] Lorazepam (Ativan) 1 mg PO ASDIRECTED PRN PRN Reason: Anxiety Last Admin: 10/06/16 16:23 Dose: 1 mg Non-Formulary Medication (Loperamide) 4 mg PO ONETIME PRN PRN Reason: Diarrhea Paroxetine HCl (Paxil) 20 mg PO DAILY [facility] Last Admin: 10/06/16 10:35 Dose: Not Given Pulmicort Flexhaler 0 each INH BID [facility] Last Admin: 10/06/16 10:35 Dose: Not Given Vancomycin HCl (Pharmacy To Dose - Vancomycin) 1 dose .XX ASDIRECTED [facility] - Exam General: alert, oriented Lungs: Clear to auscultation, Normal respiratory effort Cardiovascular: Regular Rate, Regular Rhythm Abdomen: bowel sounds present, soft, no tenderness, no distension Extremities: no edema - Problem List Review Problem List Initiated/Reviewed/Updated: Yes - My Orders Last 24 Hours: My Active Orders 10/08/16 19:28 Ibuprofen [Motrin] 200 mg PO Q6H PRN 10/09/16 14:07 Code Status [Resuscitation Status] Routine 10/09/16 14:15 Clindamycin HCl [Cleocin] 300 mg PO Q8H 10/10/16 08:00 Furosemide [Lasix] 40 mg PO BIDDIURETIC - Plan Plan:: 85-year-old female admitted with dyspnea. #1. HFrEF: Patient is requesting hospice. Will consult hospice and transition to comfort measures. Will switch to po lasix. Family is at bedside and is agreeable to discharge to [address] with hospice on Tuesday.
[2016-10-09] MEDS ORDERED: Scopolamine 1.5 MG Transdermal Patch TOP ONE (14:42)
[2016-10-09] MEDS: Clindamycin HCl 150 MG Cap PO SCH (17:20)
[2016-10-09] MEDS: LORazepam 0.5 MG Tab PO PRN ×2 (19:41→22:57)
[2016-10-09] MEDS: atorvaSTATin 10 MG Tab PO SCH (21:39)
[2016-10-09] MEDS: Mirtazapine 15 MG Tab PO SCH (21:39)
[2016-10-10] MEDS: Pantoprazole 40 MG Tab.CR PO SCH ×2 (00:06→06:30)
[2016-10-10] MEDS: Clindamycin HCl 150 MG Cap PO SCH ×4 (00:06→23:52)
[2016-10-10] MEDS: Enoxaparin 30 MG/0.3 ML Syringe SUBCUT SCH ×2 (00:06→23:52)
[2016-10-10] MEDS: LORazepam 0.5 MG Tab PO PRN (01:26)
[2016-10-10] MEDS: Albuterol/Ipratropium 3.0-0.5 MG/3 ML Neb Soln NEB SCH ×7 (01:26→21:56)
[2016-10-10] MEDS: Budesonide 0.5 MG/2 ML Neb Susp NEB SCH ×2 (05:55→20:28)
[2016-10-10] MEDS ORDERED: Furosemide 40 MG Tab PO SCH (08:00)
[2016-10-10] MEDS: Metoprolol Tartrate 25 MG Tab PO SCH ×2 (10:34→21:30)
[2016-10-10] MEDS: Aspirin 81 MG Tab.Chew PO SCH (10:34)
[2016-10-10] MEDS: PARoxetine 20 MG Tab PO SCH (10:34)
[2016-10-10] MEDS: Docusate Sodium 100 MG Cap PO SCH (10:34)
[2016-10-10] MEDS: Clopidogrel 75 MG Tab PO SCH (10:35)
[2016-10-10] MEDS: Lisinopril 10 MG Tab PO SCH (10:35)
--- NOTE | 2016-10-10 10:58 | PCM.PN ---
- Review of Systems Systems Review Comment:: she denies any pain. She denies any shortness of breath. She did take ativan last night and per nursing report was lethargic earlier this morning - Patient Data Vitals - most recent: Last Vital Signs Temp 36.3 C 10/10/16 08:00 Pulse 68 10/10/16 08:00 Resp 24 H 10/10/16 08:00 BP 71/50 L 10/10/16 08:00 Pulse Ox 100 10/10/16 08:00 Weight - most recent: 57.5 kg I&O - last 24 hours: Intake & Output 10/09/16 10/10/16 10/10/16 22:59 06:59 14:59 Intake Total 340 325 Output Total 300 175 Balance 40 150 Med Orders - Current: Current Medications Acetaminophen (Tylenol) 650 mg PO Q4HR PRN PRN Reason: Pain/Fever Last Admin: 10/08/16 18:48 Dose: 650 mg Albuterol/Ipratropium (Duoneb 3.0-0.5 Mg/3 Ml) 3 ml NEB Q4HRRT [facility] Last Admin: 10/10/16 09:41 Dose: 3 ml Aspirin (Aspirin) 81 mg PO DAILY [facility] Last Admin: 10/10/16 10:34 Dose: Not Given Atorvastatin Calcium (Lipitor) 10 mg PO BEDTIME [facility] Last Admin: 10/09/16 21:39 Dose: 10 mg Benzonatate (Tessalon Perles) 200 mg PO Q8H PRN PRN Reason: Cough Last Admin: 10/07/16 08:45 Dose: 200 mg Budesonide (Pulmicort) 0.5 mg NEB BIDRT [facility] Last Admin: 10/10/16 05:55 Dose: 0.5 mg Clindamycin HCl (Cleocin) 300 mg PO Q8H [facility] Last Admin: 10/10/16 10:34 Dose: Not Given Clopidogrel Bisulfate (Plavix) 75 mg PO DAILY [facility] Last Admin: 10/10/16 10:35 Dose: Not Given Docusate Sodium (Colace) 100 mg PO DAILY [facility] Last Admin: 10/10/16 10:34 Dose: Not Given Enoxaparin Sodium (Lovenox) 30 mg SUBCUT Q24H [facility] Last Admin: 10/10/16 00:06 Dose: 30 mg Furosemide (Lasix) 40 mg PO BIDDIURETIC [facility] Last Admin: 10/10/16 10:33 Dose: Not Given Ibuprofen (Motrin) 200 mg PO Q6H PRN PRN Reason: Pain Last Admin: 10/09/16 08:48 Dose: 200 mg Lisinopril (Prinivil) 10 mg PO DAILY [facility] Last Admin: 10/10/16 10:35 Dose: Not Given Loperamide HCl (Imodium) 4 mg PO ONETIME PRN PRN Reason: Diarrhea Lorazepam (Ativan) 1 mg PO Q4H PRN PRN Reason: Agitation Last Admin: 10/10/16 01:26 Dose: 1 mg Metoprolol Tartrate (Lopressor) 25 mg PO BID [facility] Last Admin: 10/10/16 10:34 Dose: Not Given Mirtazapine (Remeron) 30 mg PO BEDTIME [facility] Last Admin: 10/09/16 21:39 Dose: 30 mg Pantoprazole Sodium (Protonix) 40 mg PO ACBREAKFAST [facility] Last Admin: 10/10/16 06:30 Dose: 40 mg Paroxetine HCl (Paxil) 10 mg PO DAILY [facility] Last Admin: 10/10/16 10:34 Dose: Not Given Discontinued Medications Albuterol/Ipratropium (Duoneb 3.0-0.5 Mg/3 Ml) 3 ml NEB Q6HRRT [facility] Albuterol/Ipratropium (Duoneb 3.0-0.5 Mg/3 Ml) Confirm Administered Dose 3 ml .ROUTE .STK-MED ONE Stop: 10/06/16 08:43 Last Admin: 10/06/16 08:44 Dose: 3 ml Furosemide (Lasix) 40 mg IVPUSH NOW ONE Stop: 10/06/16 13:04 Last Admin: 10/06/16 13:09 Dose: 40 mg Furosemide (Lasix) 40 mg IVPUSH BID [facility] Last Admin: 10/09/16 11:12 Dose: Not Given Clindamycin Phosphate 300 mg/ (Premix) 50 mls @ 150 mls/hr IV ONETIME ONE Stop: 10/05/16 22:03 Last Admin: 10/05/16 21:57 Dose: 150 mls/hr Sodium Chloride (Normal Saline) 1,000 mls @ 50 mls/hr IV STAT [facility] Last Admin: 10/05/16 21:56 Dose: 125 mls/hr Vancomycin HCl 1 gm/ Sodium (Chloride) 250 mls @ 250 mls/hr IV ONETIME ONE Stop: 10/05/16 22:43 Last Admin: 10/05/16 21:59 Dose: 250 mls/hr Clindamycin Phosphate 300 mg/ (Premix) 50 mls @ 150 mls/hr IV Q8H [facility] Last Admin: 10/09/16 08:54 Dose: 150 mls/hr Vancomycin HCl 750 mg/ Sodium (Chloride) 250 mls @ 250 mls/hr IV Q24H [facility] Last Admin: 10/09/16 11:11 Dose: Not Given Meropenem 1 gm/ Sodium (Chloride) 100 mls @ 200 mls/hr IV Q12H [facility] Last Admin: 10/09/16 03:43 Dose: 200 mls/hr Vancomycin HCl 500 mg/ Sodium (Chloride) 100 mls @ 100 mls/hr IV Q24H [facility] Last Admin: 10/09/16 14:44 Dose: Not Given Lorazepam (Ativan) 1 mg PO ASDIRECTED PRN PRN Reason: Anxiety Last Admin: 10/06/16 16:23 Dose: 1 mg Lorazepam (Ativan) 0.5 mg PO Q2H PRN PRN Reason: Agitation Last Admin: 10/09/16 22:57 Dose: 0.5 mg Non-Formulary Medication (Loperamide) 4 mg PO ONETIME PRN PRN Reason: Diarrhea Paroxetine HCl (Paxil) 20 mg PO DAILY [facility] Last Admin: 10/06/16 10:35 Dose: Not Given Pulmicort Flexhaler 0 each INH BID [facility] Last Admin: 10/06/16 10:35 Dose: Not Given Scopolamine (Transderm-Scop) 1.5 mg TOP ONETIME ONE Stop: 10/09/16 14:43 Last Admin: 10/09/16 15:05 Dose: 1.5 mg Vancomycin HCl (Pharmacy To Dose - Vancomycin) 1 dose .XX ASDIRECTED [facility] - Exam General: cooperative Cardiovascular: Regular Rate, Regular Rhythm Abdomen: bowel sounds present, soft, no tenderness, no distension Extremities: no edema - Problem List Review Problem List Initiated/Reviewed/Updated: Yes - My Orders Last 24 Hours: My Active Orders 10/09/16 14:07 Code Status [Resuscitation Status] Routine 10/09/16 14:09 Consult to Hospice [CONS] Routine 10/09/16 16:45 Clindamycin HCl [Cleocin] 300 mg PO Q8H 10/09/16 23:45 Pantoprazole [ProTONIX] 40 mg PO ACBREAKFAST 10/10/16 00:54 LORazepam [Ativan] 1 mg PO Q4H PRN 10/10/16 08:00 Furosemide [Lasix] 40 mg PO BIDDIURETIC - Plan Plan:: 85-year-old female admitted with dyspnea. Congestive heart failure Patient is requesting hospice. Consulted hospice and transitioned to comfort measures. Plan is to discharge to [place] with hospice on Tuesday.
[2016-10-10] MEDS: atorvaSTATin 10 MG Tab PO SCH (21:30)
[2016-10-10] MEDS: Mirtazapine 15 MG Tab PO SCH (21:30)
[2016-10-11] MEDS: Ibuprofen 200 MG Tab PO PRN (00:54)
[2016-10-11] MEDS: Albuterol/Ipratropium 3.0-0.5 MG/3 ML Neb Soln NEB SCH ×5 (01:50→23:39)
[2016-10-11] MEDS: LORazepam 0.5 MG Tab PO PRN ×2 (02:23→21:39)
[2016-10-11] MEDS: Budesonide 0.5 MG/2 ML Neb Susp NEB SCH ×2 (05:54→20:18)
[2016-10-11] MEDS: Pantoprazole 40 MG Tab.CR PO SCH ×2 (06:25→06:46)
[2016-10-11] MEDS: Aspirin 81 MG Tab.Chew PO SCH (09:36)
[2016-10-11] MEDS: PARoxetine 20 MG Tab PO SCH (09:36)
[2016-10-11] MEDS: Clindamycin HCl 150 MG Cap PO SCH (09:37)
[2016-10-11] MEDS: Docusate Sodium 100 MG Cap PO SCH (09:37)
[2016-10-11] MEDS: Clopidogrel 75 MG Tab PO SCH (09:37)
[2016-10-11] MEDS: Metoprolol Tartrate 25 MG Tab PO SCH ×2 (09:38→21:33)
[2016-10-11] MEDS: Sulfamethoxazole/Trimethoprim 800-160 MG Tab PO SCH ×2 (11:04→21:32)
--- NOTE | 2016-10-11 11:13 | PCM.PN ---
- General Info Date of Service: 10/11/16 Admission Dx/Problem (Free Text): Admission Diagnosis/Problem Admission Diagnosis/Problem CHF Subjective Update: Sitting up in chair after finishing breakfast. Reports she is feeling pretty good today. Reports not knowing about Hospice and isn't sure about it. Denies chest pain or SOB. On second rounds, discussed hospice with Dr Reed and family at bedside. Field Auditor did come speak as well and it was decided she still wanted treatment if needed. She did agree for labwork this am. Functional Status: Reports: pain controlled, tolerating diet, ambulating - Review of Systems General: Reports: No Symptoms HEENT: Reports: no symptoms Pulmonary: Reports: no symptoms. Denies: shortness of breath Cardiovascular: Reports: No Symptoms. Denies: Chest Pain, Edema Gastrointestinal: Reports: No symptoms. Denies: Abdominal pain, Nausea, Vomiting Genitourinary: Reports: no symptoms. Denies: dysuria, frequency, burning Musculoskeletal: Reports: no symptoms Skin: Reports: no symptoms Neurological: Reports: No Symptoms Psychiatric: Reports: no symptoms - Patient Data Vitals - most recent: Last Vital Signs Temp 97.2 F 10/11/16 08:00 Pulse 112 H 10/11/16 08:00 Resp 18 10/11/16 08:00 BP 100/50 L 10/11/16 09:38 Pulse Ox 99 10/11/16 08:00 Weight - most recent: 58 kg I&O - last 24 hours: Intake & Output 10/10/16 10/11/16 10/11/16 22:59 06:59 14:59 Intake Total 100 1140 Output Total 90 125 Balance 10 1015 Lab Results last 24 hrs: Laboratory Results - last 24 hr 10/11/16 Range/Units 11:03 WBC 9.41 (4.0-11.0) K/uL RBC 3.06 L (4.30-5.90) M/uL Hgb 9.5 L (12.0-16.0) g/dL Hct 31.3 L (36.0-46.0) % MCV 102.3 H (80.0-98.0) fL MCH 31.0 (27.0-32.0) pg MCHC 30.4 L (31.0-37.0) g/dL RDW Std Deviation 62.3 H (28.0-62.0) fl RDW Coeff of Masood 17 H (11.0-15.0) % Plt Count 342 (150-400) K/uL MPV 11.80 (7.40-12.00) fL Neut % (Auto) 66.7 (48.0-80.0) % Lymph % (Auto) 15.3 L (16.0-40.0) % Humphreys % (Auto) 12.8 (0.0-15.0) % Eos % (Auto) 4.7 (0.0-7.0) % Baso % (Auto) 0.5 (0.0-1.5) % Neut # (Auto) 6.3 H (1.4-5.7) K/uL Lymph # (Auto) 1.4 (0.6-2.4) K/uL Humphreys # (Auto) 1.2 H (0.0-0.8) K/uL Eos # (Auto) 0.4 (0.0-0.7) K/uL Baso # (Auto) 0.1 (0.0-0.1) K/uL Nucleated RBC % 0.4 /100WBC Nucleated RBCs # 0 K/uL Med Orders - Current: Current Medications Acetaminophen (Tylenol) 650 mg PO Q4HR PRN PRN Reason: Pain/Fever Last Admin: 10/08/16 18:48 Dose: 650 mg Albuterol/Ipratropium (Duoneb 3.0-0.5 Mg/3 Ml) 3 ml NEB Q4HRRT [facility] Last Admin: 10/11/16 09:02 Dose: 3 ml Aspirin (Aspirin) 81 mg PO DAILY [facility] Last Admin: 10/11/16 09:36 Dose: 81 mg Atorvastatin Calcium (Lipitor) 10 mg PO BEDTIME [facility] Last Admin: 10/10/16 21:30 Dose: 10 mg Benzonatate (Tessalon Perles) 200 mg PO Q8H PRN PRN Reason: Cough Last Admin: 10/07/16 08:45 Dose: 200 mg Budesonide (Pulmicort) 0.5 mg NEB BIDRT [facility] Last Admin: 10/11/16 05:54 Dose: 0.5 mg Clopidogrel Bisulfate (Plavix) 75 mg PO DAILY [facility] Last Admin: 10/11/16 09:37 Dose: 75 mg Docusate Sodium (Colace) 100 mg PO DAILY [facility] Last Admin: 10/11/16 09:37 Dose: 100 mg Enoxaparin Sodium (Lovenox) 30 mg SUBCUT Q24H [facility] Last Admin: 10/10/16 23:52 Dose: 30 mg Ibuprofen (Motrin) 200 mg PO Q6H PRN PRN Reason: Pain Last Admin: 10/11/16 00:54 Dose: 200 mg Loperamide HCl (Imodium) 4 mg PO ONETIME PRN PRN Reason: Diarrhea Lorazepam (Ativan) 1 mg PO Q4H PRN PRN Reason: Agitation Last Admin: 10/11/16 02:23 Dose: 1 mg Metoprolol Tartrate (Lopressor) 25 mg PO BID [facility] Last Admin: 10/11/16 09:38 Dose: Not Given Mirtazapine (Remeron) 30 mg PO BEDTIME [facility] Last Admin: 10/10/16 21:30 Dose: 30 mg Pantoprazole Sodium (Protonix) 40 mg PO ACBREAKFAST [facility] Last Admin: 10/11/16 06:46 Dose: Not Given Paroxetine HCl (Paxil) 10 mg PO DAILY [facility] Last Admin: 10/11/16 09:36 Dose: 10 mg Trimethoprim/Sulfamethoxazole (Septra Ds) 0.5 tab PO BID [facility] Last Admin: 10/11/16 11:04 Dose: 0.5 tab Discontinued Medications Albuterol/Ipratropium (Duoneb 3.0-0.5 Mg/3 Ml) 3 ml NEB Q6HRRT [facility] Albuterol/Ipratropium (Duoneb 3.0-0.5 Mg/3 Ml) Confirm Administered Dose 3 ml .ROUTE .STK-MED ONE Stop: 10/06/16 08:43 Last Admin: 10/06/16 08:44 Dose: 3 ml Clindamycin HCl (Cleocin) 300 mg PO Q8H [facility] Last Admin: 10/11/16 09:37 Dose: 300 mg Furosemide (Lasix) 40 mg IVPUSH NOW ONE Stop: 10/06/16 13:04 Last Admin: 10/06/16 13:09 Dose: 40 mg Furosemide (Lasix) 40 mg IVPUSH BID [facility] Last Admin: 10/09/16 11:12 Dose: Not Given Furosemide (Lasix) 40 mg PO BIDDIURETIC [facility] Last Admin: 10/10/16 10:33 Dose: Not Given Clindamycin Phosphate 300 mg/ (Premix) 50 mls @ 150 mls/hr IV ONETIME ONE Stop: 10/05/16 22:03 Last Admin: 10/05/16 21:57 Dose: 150 mls/hr Sodium Chloride (Normal Saline) 1,000 mls @ 50 mls/hr IV STAT [facility] Last Admin: 10/05/16 21:56 Dose: 125 mls/hr Vancomycin HCl 1 gm/ Sodium (Chloride) 250 mls @ 250 mls/hr IV ONETIME ONE Stop: 10/05/16 22:43 Last Admin: 10/05/16 21:59 Dose: 250 mls/hr Clindamycin Phosphate 300 mg/ (Premix) 50 mls @ 150 mls/hr IV Q8H [facility] Last Admin: 10/09/16 08:54 Dose: 150 mls/hr Vancomycin HCl 750 mg/ Sodium (Chloride) 250 mls @ 250 mls/hr IV Q24H [facility] Last Admin: 10/09/16 11:11 Dose: Not Given Meropenem 1 gm/ Sodium (Chloride) 100 mls @ 200 mls/hr IV Q12H [facility] Last Admin: 10/09/16 03:43 Dose: 200 mls/hr Vancomycin HCl 500 mg/ Sodium (Chloride) 100 mls @ 100 mls/hr IV Q24H [facility] Last Admin: 10/09/16 14:44 Dose: Not Given Lisinopril (Prinivil) 10 mg PO DAILY [facility] Last Admin: 10/10/16 10:35 Dose: Not Given Lorazepam (Ativan) 1 mg PO ASDIRECTED PRN PRN Reason: Anxiety Last Admin: 10/06/16 16:23 Dose: 1 mg Lorazepam (Ativan) 0.5 mg PO Q2H PRN PRN Reason: Agitation Last Admin: 10/09/16 22:57 Dose: 0.5 mg Non-Formulary Medication (Loperamide) 4 mg PO ONETIME PRN PRN Reason: Diarrhea Paroxetine HCl (Paxil) 20 mg PO DAILY [facility] Last Admin: 10/06/16 10:35 Dose: Not Given Pulmicort Flexhaler 0 each INH BID [facility] Last Admin: 10/06/16 10:35 Dose: Not Given Scopolamine (Transderm-Scop) 1.5 mg TOP ONETIME ONE Stop: 10/09/16 14:43 Last Admin: 10/09/16 15:05 Dose: 1.5 mg Vancomycin HCl (Pharmacy To Dose - Vancomycin) 1 dose .XX ASDIRECTED [facility] - Exam Quality Assessment: supplemental oxygen General: alert, oriented, cooperative Lungs: Rhonchi (throughout) Cardiovascular: Regular Rate, Regular Rhythm Abdomen: bowel sounds present, soft, no tenderness, no distension, other ( urostomy in place, pink in color, draining urine well. ) Extremities: no edema, normal pulses Neurological: no new focal deficit Psy/Mental Status: alert, normal affect, normal mood - Problem List & Annotations (1) CHF (congestive heart failure) SNOMED Code(s): 60646264 Code(s): I50.9 - HEART FAILURE, UNSPECIFIED Status: Chronic Current Visit : Yes Qualifiers: Congestive heart failure type: systolic Congestive heart failure chronicity : acute on chronic Qualified Code(s): I50.23 - Acute on chronic systolic ( congestive) heart failure (2) Pneumonia SNOMED Code(s): 420780667 Code(s): J18.9 - PNEUMONIA, UNSPECIFIED ORGANISM Status: Resolved Current Visit: Yes (3) COPD (chronic obstructive pulmonary disease) SNOMED Code(s): 51935348 Code(s): J44.9 - CHRONIC OBSTRUCTIVE PULMONARY DISEASE, UNSPECIFIED Status : Acute Priority: High Current Visit: No Qualifiers: COPD type: COPD with acute exacerbation Qualified Code(s): J44.1 - Chronic obstructive pulmonary disease with (acute) exacerbation (4) UTI (urinary tract infection), bacterial SNOMED Code(s): 908752361 Code(s): N39.0 - URINARY TRACT INFECTION, SITE NOT SPECIFIED; A49.9 - BACTERIAL INFECTION, UNSPECIFIED Status: Acute Current Visit: No Annotation/Comment:: MRSA (5) CAD (coronary artery disease) SNOMED Code(s): 05294319 Code(s): I25.10 - ATHSCL HEART DISEASE OF [place] CORONARY ARTERY W/O ANG PCTRS Status: Chronic Priority: Medium Current Visit: No Qualifiers: Coronary Disease-Associated Artery/Lesion type: unspecified vessel or lesion type [place] vs. transplanted heart: [place] heart Associated angina: angina presence unspecified Qualified Code(s): I25.10 - Atherosclerotic heart disease of [place] coronary artery without angina pectoris (6) CKD (chronic kidney disease) SNOMED Code(s): 745978875 Code(s): N18.9 - CHRONIC KIDNEY DISEASE, UNSPECIFIED Status: Chronic Current Visit: No (7) HTN (hypertension) SNOMED Code(s): 90562229 Code(s): I10 - ESSENTIAL (PRIMARY) HYPERTENSION Status: Chronic Current Visit: No Qualifiers: Hypertension type: essential hypertension Qualified Code(s): I10 - Essential (primary) hypertension (8) Pulmonary fibrosis SNOMED Code(s): 67392925 Code(s): J84.10 - PULMONARY FIBROSIS, UNSPECIFIED Status: Chronic Current Visit: No - Problem List Review Problem List Initiated/Reviewed/Updated: Yes - My Orders Last 24 Hours: My Active Orders 10/11/16 10:45 Sulfamethoxazole/Trimethoprim [Septra DS] 0.5 tab PO BID 10/11/16 11:03 BASIC METABOLIC PANEL,BMP [CHEM] Routine - Plan Plan:: 85-year-old female admitted with dyspnea. 1. Heart failure: Refused Hospice care this morning. Spoke with Libby and family, discussed poor prognosis of end stage CHF. She is aware and would still like the option to come back to the hospital if needed for treatment. Echocardiogram shows EF of 15-20%. Holding Metoprolol due to hypotension also holding Lasix. Likely has pulmonary edema. Monitoring this. Oxygen needs remain at 5-6 L NC. 2. UTI: UC revealed Achromobacter xylosoxidans, resistant to everything but, Fluoroquinolones which she is allergic to and Bactrim. Will renal dose Bactrim and discontinue Clindamycin. 3. CKD: Did allow us to draw labs today, continues to refuse IV access. BUN and Cr elevated to BUN 53 Cr 2.6. Continue to monitor. 4. COPD/pulmonary fibrosis: Continue home inhalers and Duonebs here. Continues to need 6 5-6 L NC. VTE prohpylaxis: Heparin.
[2016-10-11] MEDS ORDERED: Albuterol 0.083% 2.5 MG/3 ML Neb Soln NEB PRN (13:50)
[2016-10-11] MEDS: Benzonatate 100 MG Cap PO PRN ×2 (15:06→23:52)
--- NOTE | 2016-10-11 18:53 | ECHO ---
The echocardiogram report can be seen in this patient's EMR in the Reports section. FLORI
[2016-10-11] MEDS: Acetaminophen 325 MG Tab PO PRN ×2 (19:37→23:38)
[2016-10-11] MEDS: atorvaSTATin 10 MG Tab PO SCH (21:32)
[2016-10-11] MEDS: Mirtazapine 15 MG Tab PO SCH (21:32)
[2016-10-11] MEDS: Heparin Sodium 5,000 Units/ML Vial SUBCUT SCH (21:35)
[2016-10-12] MEDS: Albuterol/Ipratropium 3.0-0.5 MG/3 ML Neb Soln NEB SCH ×2 (05:40→11:27)
[2016-10-12] MEDS: Budesonide 0.5 MG/2 ML Neb Susp NEB SCH (05:40)
[2016-10-12] MEDS: Aspirin 81 MG Tab.Chew PO SCH (09:08)
[2016-10-12] MEDS: Sulfamethoxazole/Trimethoprim 800-160 MG Tab PO SCH (09:08)
[2016-10-12] MEDS: Docusate Sodium 100 MG Cap PO SCH (09:08)
[2016-10-12] MEDS: Clopidogrel 75 MG Tab PO SCH (09:08)
[2016-10-12] MEDS: Pantoprazole 40 MG Tab.CR PO SCH (09:08)
[2016-10-12] MEDS: Heparin Sodium 5,000 Units/ML Vial SUBCUT SCH (09:09)
[2016-10-12] MEDS: Metoprolol Tartrate 25 MG Tab PO SCH (09:09)
[2016-10-12 09:10] VITALS: BP 134/64
[2016-10-12] MEDS: PARoxetine 20 MG Tab PO SCH (09:11)
--- NOTE | 2016-10-12 11:37 | PCM.DCSUM1 ---
Discharge Summary - Hospital Course Brief History: This 85 year old female with pmh of pulmonary fibrosis, COPD, oxygen depenedent on 3-4 L NC continuously, CHF, CKD and recent UTI presented to the ED complaints of a fever. She had been treated for a urinary tract infection within the last week with Macrobid. temperature measured at 101 today at the [place] [facility] she did receive Tylenol prior to arrival. She also complained of some shortness of breath along with various aches and pains. In the ED WBC 8.70,m hgb 9.5 BUN 33, Cr 1.6 troponin negative and BNP >3306. UA completed which was positive. CXR revealed pulmonary edema, unable to fully rule out infectious process though. She was admitted with CHF and UTI. - Discharge Data Discharge Date: 10/12/16 Discharge Disposition: DC/Tfer to [facility] 61 Condition: Good - Discharge Diagnosis/Problem(s) (1) CHF (congestive heart failure) SNOMED Code(s): 58787411 ICD Code: I50.9 - HEART FAILURE, UNSPECIFIED Status: Chronic Current Visit: Yes Qualifiers: Congestive heart failure type: systolic Congestive heart failure chronicity : acute on chronic Qualified Code(s): I50.23 - Acute on chronic systolic ( congestive) heart failure (2) Pneumonia SNOMED Code(s): 704457356 ICD Code: J18.9 - PNEUMONIA, UNSPECIFIED ORGANISM Status: Resolved Current Visit: Yes (3) COPD (chronic obstructive pulmonary disease) SNOMED Code(s): 51589012 ICD Code: J44.9 - CHRONIC OBSTRUCTIVE PULMONARY DISEASE, UNSPECIFIED Status : Acute Priority: High Current Visit: No Qualifiers: COPD type: COPD with acute exacerbation Qualified Code(s): J44.1 - Chronic obstructive pulmonary disease with (acute) exacerbation (4) UTI (urinary tract infection), bacterial SNOMED Code(s): 051225025 ICD Code: N39.0 - URINARY TRACT INFECTION, SITE NOT SPECIFIED; A49.9 - BACTERIAL INFECTION, UNSPECIFIED Status: Acute Current Visit: No Problem Details: MRSA (5) CAD (coronary artery disease) SNOMED Code(s): 92372929 ICD Code: I25.10 - ATHSCL HEART DISEASE OF [place] CORONARY ARTERY W/O ANG PCTRS Status: Chronic Priority: Medium Current Visit: No Qualifiers: Coronary Disease-Associated Artery/Lesion type: unspecified vessel or lesion type [place] vs. transplanted heart: [place] heart Associated angina: angina presence unspecified Qualified Code(s): I25.10 - Atherosclerotic heart disease of [place] coronary artery without angina pectoris (6) CKD (chronic kidney disease) SNOMED Code(s): 514062164 ICD Code: N18.9 - CHRONIC KIDNEY DISEASE, UNSPECIFIED Status: Chronic Current Visit: No (7) HTN (hypertension) SNOMED Code(s): 08086262 ICD Code: I10 - ESSENTIAL (PRIMARY) HYPERTENSION Status: Chronic Current Visit: No Qualifiers: Hypertension type: essential hypertension Qualified Code(s): I10 - Essential (primary) hypertension (8) Pulmonary fibrosis SNOMED Code(s): 78518887 ICD Code: J84.10 - PULMONARY FIBROSIS, UNSPECIFIED Status: Chronic Current Visit: No - Patient Summary/Data Consults: Consultations 10/08/16 09:05 Consult to Physical Therapy [PT Evaluation and Treatment] [CONS] Routine 10/09/16 14:09 Consult to Hospice [CONS] Routine - Patient Instructions Diet: Heart Healthy Diet, Low Sodium Activity: As Tolerated Showering/Bathing: May Shower Notify Provider of: Fever Other/Special Instructions: 5 L NC oxygen continuous, wean as possible. May increase to 6 L with activity. - Discharge Plan Prescriptions/Med Rec: Furosemide [Lasix] 20 mg PO DAILY #30 tablet LORazepam [Ativan] 1 mg PO TID PRN #15 tablet PRN Reason: Anxiety Lisinopril 2.5 mg PO DAILY #30 tablet Sulfamethoxazole/Trimethoprim [IJD: Sulfamethoxazole/Trimethoprim DS] 0.5 tab PO BID #5 tablet Home Medications: Home Meds Ferrous Sulfate 325 mg PO BID 10/19/14 [History] Metoprolol Tartrate 25 mg PO BID 10/19/14 [History] atorvaSTATin [Lipitor] 10 mg PO BEDTIME 10/19/14 [History] Clopidogrel [Plavix] 75 mg PO DAILY 02/25/15 [History] PARoxetine [Paxil] 10 mg PO DAILY 02/25/15 [History] Acetaminophen [Tylenol] 650 mg PO Q4HR PRN MDD 3000 mg 05/25/15 [History] Calcium Citrate/Vitamin D3 [Calcium Citrate + D] 1 tab PO BIDMEALS 05/25/15 [ History] Multivitamin [Multivitamins] 1 cap PO DAILY 05/25/15 [History] Aspirin 81 mg PO DAILY 01/08/16 [History] Budesonide [Pulmicort Flexhaler] 2 puff INH DAILY 01/08/16 [History] Levalbuterol HCl [Xopenex] 1.25 mg NEB Q4H PRN 01/08/16 [History] Mirtazapine [Remeron] 30 mg PO BEDTIME 01/08/16 [History] L Acidophil/B Lactis/B Longum [Florajen3] 460 mg PO DAILY 01/09/16 [History] Loperamide HCl [Imodium A-D] 4 mg PO ONETIME PRN 05/08/16 [History] Mineral Oil/Petrolatum,White [Refresh P.M.] 1 applic EYEBOTH BEDTIME 05/09/16 [ History] Docusate Sodium [Colace] 100 mg PO DAILY 09/02/16 [History] Loperamide HCl [Imodium A-D] 2 mg PO QID PRN MDD 8 mg 09/02/16 [History] Melatonin 5 mg PO BEDTIME 09/02/16 [History] Benzonatate [Tessalon Perles] 200 mg PO Q8H PRN #21 cap 09/07/16 [Rx] Polymyxin B Sulf/Trimethoprim [Polytrim Eye Drops] 1 drop EYEBOTH DAILY [History] Furosemide [Lasix] 20 mg PO DAILY #30 tablet 10/12/16 [Rx] LORazepam [Ativan] 1 mg PO TID PRN #15 tablet 10/12/16 [Rx] Lisinopril 2.5 mg PO DAILY #30 tablet 10/12/16 [Rx] Sulfamethoxazole/Trimethoprim [IJD: Sulfamethoxazole/Trimethoprim DS] 0.5 tab PO BID #5 tablet 10/12/16 [Rx] Referrals: Syed Santacruz MD [Physician] - 10/18/16 (Next [place] Rounds) - Discharge Summary/Plan Comment DC Time >30 min.: No Discharge Summary/Plan Comment: Discharge Diagnoses: CHF- end stage LV 15-20% UTI Pulmonary fibrosis COPD Oxygen dependence CKD Anxiety Libby was admitted and treated for UTI and CHF exacerbation. Regarding CHF, an ECHO was obtained which revealed LV EF 15-20% with akinesis if septal L ventrical wall and the remaining segments are severely hypokinetic. She was treated with Lasix and did need elevated amounts of oxygen. She had been telling nursing and Resident she just wants to . Family and her were updated on ECHO results and porr prognosis with end stage CHF paired with pulmonary fibrosis and CKD. They decided over the weekend to be discharged back to [place] with Hospice on Tuesday. On Tuesday, she had a change of heart and discussed Hospice care with director of digital technology, at this time she would like full treatment and not to be placed in Hospice. Will continue DNR. She has been encouraged to go into Hospice regarding end stage CHF to improve quality of life and that there is not much more treatment for CHF, just relief of symptoms. She continues to want treatment and remain DNR. She has been on 5 L NC HF and with increases to 6 L with activity. Will continue Metoprolol and add RAJANI, Lisinopril 2.5 mg due to CHF and Lasix 20 mg daily. She will follow up with PCP in 1 week. She was placed on Clindamycin for suspected pneumonia, but it appeared more like pulmonary edema. She had no further fevers. UC returned with Achromobacter xylosoxidans resistant to all medications except for flouroquinolones and bactrim. She is allergic to the flourouinolones, so she was placed on renal dosing of Bactrim. She is afebrile and leukocytosis has resolved. She will be discharged back to [place] today. Family aware and will call PCP with treatment plan. - General Info Date of Service: 10/12/16 Admission Dx/Problem (Free Text: Admission Diagnosis/Problem Admission Diagnosis/Problem CHF Subjective Update: Sitting up in chair after finishing breakfast. Reports she is feeling pretty good today. Continues to decline Hospice. Denies chest pain or SOB. SOB is at baseline. Eager to be back at [place] today and is ok with plan to discharge home. Functional Status: Reports: pain controlled, tolerating diet, ambulating, urinating - Review of Systems General: Reports: No Symptoms HEENT: Reports: no symptoms Pulmonary: Reports: shortness of breath (at baseline). Denies: cough, sputum Cardiovascular: Reports: No Symptoms. Denies: Chest Pain, Palpitations, Edema Gastrointestinal: Reports: No symptoms. Denies: Abdominal pain, Nausea, Vomiting Genitourinary: Reports: no symptoms. Denies: dysuria, frequency, burning Musculoskeletal: Reports: no symptoms Skin: Reports: no symptoms Neurological: Reports: No Symptoms Psychiatric: Reports: no symptoms - Patient Data Vitals - Most Recent: Last Vital Signs Temp 97.3 F 10/12/16 08:00 Pulse 91 10/12/16 09:09 Resp 20 10/12/16 08:00 BP 134/64 10/12/16 09:09 Pulse Ox 99 10/12/16 08:00 Weight - Most Recent: 60 kg I&O - Last 24 hours: Intake & Output 10/11/16 10/12/16 10/12/16 22:59 06:59 14:59 Intake Total 400 1000 Output Total 350 650 Balance 50 350 Lab Results - Last 24 hrs: Laboratory Results - last 24 hr 10/11/16 10/12/16 10/12/16 Range/Units 11:03 08:48 08:48 WBC 9.51 (4.0-11.0) K/uL RBC 2.90 L (4.30-5.90) M/uL Hgb 9.0 L (12.0-16.0) g/dL Hct 28.1 L (36.0-46.0) % MCV 96.9 (80.0-98.0) fL MCH 31.0 (27.0-32.0) pg MCHC 32.0 (31.0-37.0) g/dL RDW Std Deviation 55.9 (28.0-62.0) fl RDW Coeff of Masood 16 H (11.0-15.0) % Plt Count 334 (150-400) K/uL MPV 11.50 (7.40-12.00) fL Add Manual Diff YES Neutrophils % (Manual) 66 (48.0-80.0) % Band Neutrophils % 7 % Lymphocytes % (Manual) 17 (16.0-40.0) % Monocytes % (Manual) 6 (0.0-15.0) % Eosinophils % (Manual) 3 (0.0-7.0) % Basophils % (Manual) 1 (0.0-1.5) % Nucleated RBC % 0.0 /100WBC Absolute Seg Neuts 6.3 Band Neutrophils # 0.7 Lymphocytes # (Manual) 1.6 Monocytes # (Manual) 0.6 Eosinophils # (Manual) 0.3 Basophils # (Manual) 0 Nucleated RBCs # 0 K/uL Sodium 136 131 L (136-146) mmol/L Potassium 4.6 4.7 (3.5-5.1) mmol/L Chloride 97 L 98 (98-110) mmol/L Carbon Dioxide 25 23 (21-31) mmol/L BUN 53 H 43 H (6.0-23.0) mg/dL Creatinine 2.6 H 1.9 H (0.6-1.5) mg/dL Est Cr Clr Drug Dosing 12.82 17.55 mL/min Estimated GFR (MDRD) 17.4 25.0 ml/min Glucose 125 H 89 (60-110) mg/dL Calcium 9.0 8.2 L (8.8-10.8) mg/dL Med Orders - Current: Current Medications Acetaminophen (Tylenol) 650 mg PO Q4HR PRN PRN Reason: Pain/Fever Last Admin: 10/11/16 23:38 Dose: 650 mg Albuterol (Proventil Neb Soln) 2.5 mg NEB Q2H PRN PRN Reason: Shortness Of Breath/wheezing Albuterol/Ipratropium (Duoneb 3.0-0.5 Mg/3 Ml) 3 ml NEB Q6HRRT [facility] Last Admin: 10/12/16 05:40 Dose: 3 ml Aspirin (Aspirin) 81 mg PO DAILY [facility] Last Admin: 10/12/16 09:08 Dose: 81 mg Atorvastatin Calcium (Lipitor) 10 mg PO BEDTIME [facility] Last Admin: 10/11/16 21:32 Dose: 10 mg Benzonatate (Tessalon Perles) 200 mg PO Q8H PRN PRN Reason: Cough Last Admin: 10/11/16 23:52 Dose: 200 mg Budesonide (Pulmicort) 0.5 mg NEB BIDRT [facility] Last Admin: 10/12/16 05:40 Dose: 0.5 mg Clopidogrel Bisulfate (Plavix) 75 mg PO DAILY [facility] Last Admin: 10/12/16 09:08 Dose: 75 mg Docusate Sodium (Colace) 100 mg PO DAILY [facility] Last Admin: 10/12/16 09:08 Dose: 100 mg Heparin Sodium (Porcine) (Heparin Sodium) 5,000 units SUBCUT Q12HR [facility] Last Admin: 10/12/16 09:09 Dose: 5,000 units Loperamide HCl (Imodium) 4 mg PO ONETIME PRN PRN Reason: Diarrhea Lorazepam (Ativan) 1 mg PO Q4H PRN PRN Reason: Agitation Last Admin: 10/11/16 21:39 Dose: 1 mg Metoprolol Tartrate (Lopressor) 25 mg PO BID [facility] Last Admin: 10/12/16 09:09 Dose: 25 mg Mirtazapine (Remeron) 30 mg PO BEDTIME [facility] Last Admin: 10/11/16 21:32 Dose: 30 mg Pantoprazole Sodium (Protonix) 40 mg PO ACBREAKFAST [facility] Last Admin: 10/12/16 09:08 Dose: 40 mg Paroxetine HCl (Paxil) 10 mg PO DAILY [facility] Last Admin: 10/12/16 09:11 Dose: 10 mg Trimethoprim/Sulfamethoxazole (Septra Ds) 0.5 tab PO BID [facility] Last Admin: 10/12/16 09:08 Dose: 0.5 tab Discontinued Medications Albuterol/Ipratropium (Duoneb 3.0-0.5 Mg/3 Ml) 3 ml NEB Q6HRRT MACIEJ Albuterol/Ipratropium (Duoneb 3.0-0.5 Mg/3 Ml) 3 ml NEB Q4HRRT [facility] Last Admin: 10/11/16 09:02 Dose: 3 ml Albuterol/Ipratropium (Duoneb 3.0-0.5 Mg/3 Ml) Confirm Administered Dose 3 ml .ROUTE .STK-MED ONE Stop: 10/06/16 08:43 Last Admin: 10/06/16 08:44 Dose: 3 ml Clindamycin HCl (Cleocin) 300 mg PO Q8H [facility] Last Admin: 10/11/16 09:37 Dose: 300 mg Enoxaparin Sodium (Lovenox) 30 mg SUBCUT Q24H [facility] Last Admin: 10/10/16 23:52 Dose: 30 mg Furosemide (Lasix) 40 mg IVPUSH NOW ONE Stop: 10/06/16 13:04 Last Admin: 10/06/16 13:09 Dose: 40 mg Furosemide (Lasix) 40 mg IVPUSH BID [facility] Last Admin: 10/09/16 11:12 Dose: Not Given Furosemide (Lasix) 40 mg PO BIDDIURETIC [facility] Last Admin: 10/10/16 10:33 Dose: Not Given Clindamycin Phosphate 300 mg/ (Premix) 50 mls @ 150 mls/hr IV ONETIME ONE Stop: 10/05/16 22:03 Last Admin: 10/05/16 21:57 Dose: 150 mls/hr Sodium Chloride (Normal Saline) 1,000 mls @ 50 mls/hr IV STAT [facility] Last Admin: 10/05/16 21:56 Dose: 125 mls/hr Vancomycin HCl 1 gm/ Sodium (Chloride) 250 mls @ 250 mls/hr IV ONETIME ONE Stop: 10/05/16 22:43 Last Admin: 10/05/16 21:59 Dose: 250 mls/hr Clindamycin Phosphate 300 mg/ (Premix) 50 mls @ 150 mls/hr IV Q8H [facility] Last Admin: 10/09/16 08:54 Dose: 150 mls/hr Vancomycin HCl 750 mg/ Sodium (Chloride) 250 mls @ 250 mls/hr IV Q24H [facility] Last Admin: 10/09/16 11:11 Dose: Not Given Meropenem 1 gm/ Sodium (Chloride) 100 mls @ 200 mls/hr IV Q12H [facility] Last Admin: 10/09/16 03:43 Dose: 200 mls/hr Vancomycin HCl 500 mg/ Sodium (Chloride) 100 mls @ 100 mls/hr IV Q24H [facility] Last Admin: 10/09/16 14:44 Dose: Not Given Ibuprofen (Motrin) 200 mg PO Q6H PRN PRN Reason: Pain Last Admin: 10/11/16 00:54 Dose: 200 mg Lisinopril (Prinivil) 10 mg PO DAILY [facility] Last Admin: 10/10/16 10:35 Dose: Not Given Lorazepam (Ativan) 1 mg PO ASDIRECTED PRN PRN Reason: Anxiety Last Admin: 10/06/16 16:23 Dose: 1 mg Lorazepam (Ativan) 0.5 mg PO Q2H PRN PRN Reason: Agitation Last Admin: 10/09/16 22:57 Dose: 0.5 mg Non-Formulary Medication (Loperamide) 4 mg PO ONETIME PRN PRN Reason: Diarrhea Paroxetine HCl (Paxil) 20 mg PO DAILY [facility] Last Admin: 10/06/16 10:35 Dose: Not Given Pulmicort Flexhaler 0 each INH BID [facility] Last Admin: 10/06/16 10:35 Dose: Not Given Scopolamine (Transderm-Scop) 1.5 mg TOP ONETIME ONE Stop: 10/09/16 14:43 Last Admin: 10/09/16 15:05 Dose: 1.5 mg Vancomycin HCl (Pharmacy To Dose - Vancomycin) 1 dose .XX ASDIRECTED MACIEJ - Exam Quality Assessment: Reports: supplemental oxygen, DVT prophylaxis General: Reports: alert, oriented, cooperative Lungs: Reports: Clear to auscultation, Normal respiratory effort Cardiovascular: Reports: Regular Rate, Regular Rhythm Abdomen: Reports: bowel sounds present, soft, no tenderness, no distension Extremities: Reports: no edema, normal pulses Neurological: Reports: no new focal deficit Psy/Mental Status: Reports: alert, normal affect, normal mood *Q Meaningful Use (DIS) - VTE *Q VTE Criteria *Q: - Stroke *Q Stroke Criteria *Q: - AMI *Q AMI Criteria *Q:
== END 2016-10-12 12:25 | DRG 291 ==
LOC: MW.ED 20:45 → MW.MS 21:53 → EEVIPCON 21:53 → MW.MS 22:36
PROVIDERS: ADMIT Internal Medicine; ATTEND Internal Medicine
DX: J18.9 Pneumonia, unspecified organism (principal); I49.9 Cardiac arrhythmia, unspecified; I50.23 Acute on chronic systolic (congestive) heart failure; I50.9 Heart failure, unspecified; J69.0 Pneumonitis due to inhalation of food and vomit; N18.3 Chronic kidney disease, stage 3 (moderate); J44.9 Chronic obstructive pulmonary disease, unspecified; F41.8 Other specified anxiety disorders; J44.0 Chronic obstructive pulmonary disease with (acute) lower respiratory infection; Z88.1 Allergy status to other antibiotic agents; N39.0 Urinary tract infection, site not specified; B96.89 Other specified bacterial agents as the cause of diseases classified elsewhere; Z95.5 Presence of coronary angioplasty implant and graft; Z86.73 Personal history of transient ischemic attack (TIA), and cerebral infarction without residual deficits; I25.10 Atherosclerotic heart disease of native coronary artery without angina pectoris; I12.9 Hypertensive chronic kidney disease with stage 1 through stage 4 chronic kidney disease, or unspecified chronic kidney disease; N18.9 Chronic kidney disease, unspecified; J84.10 Pulmonary fibrosis, unspecified; Z66 Do not resuscitate; Z88.8 Allergy status to other drugs, medicaments and biological substances; Z88.0 Allergy status to penicillin; Z79.899 Other long term (current) drug therapy
CPT/HCPCS: 36415; 71010; 71010-26; 80048; 80053; 80202; 81001; 83605; 83880; 84484; 85025; 85027; 87040; 87086; 87088; 87186; 93005; 93306; 94640; 96365; 96375; 97162-GP; 99285; 99285-25; A9270-GY; J1644; J1650; J1940; J2185; J3370; J7030; J7040; J7050